=== PATIENT | male | born 1945 | race Caucasian/White ===

== ENCOUNTER 2021-04-13 18:21 | Inpatient (IN) ==
[2021-04-13] MEDS ORDERED: 0.9 % SODIUM CHLORIDE 1,000 ML IV ONE ×2 (18:32→20:02)
[2021-04-13 19:09] LABS: POC Creatinine 1.8 mg/dL (0.6-1.2)
[2021-04-13 19:56] LABS: Alcohol, Blood < 10.0 mg/dL; Alcohol,Blood < 0.010 gm/dL (<0.010)
[2021-04-13] MEDS ORDERED: cefTRIAXone 1 GM VIAL IV ONE (20:02)
[2021-04-13 20:08] LABS: ALT/SGPT 108 U/L (<40); AST/SGOT 275 U/L (<40); Albumin 2.6 gm/dL (3.2-5.2); Albumin/Globulin Ratio 0.6 (1.0-2.3); Alkaline Phosphatase 100 U/L (39-117); Bilirubin,Total 0.8 mg/dL (0.1-1.0); Blood Urea Nitrogen 46 mg/dL (8-23); Carbon Dioxide 22 mmol/L (22-30); Chloride 92 mmol/L (96-108); Glomerular Filtration Rate 32; Glucose 149 mg/dL (70-105)
[2021-04-13] MEDS ORDERED: CARBAMAZEPINE 100 MG/5 ML PO ONE (20:12)
[2021-04-13 20:14] LABS: Basophils # (Auto) 0.04 K/mcL (0.00-0.20); Basophils % (Auto) 0.3 % (0.0-2.0); Eosinophils # (Auto) 0 K/mcL (0.00-0.70); Eosinophils % (Auto) 0 % (0.0-7.0); Hematocrit 38.5 % (41.0-55.0); Hemoglobin 13.8 g/dL (13.5-16.5); Lymphocytes # (Auto) 0.26 K/mcL (1.50-4.80); Lymphocytes % (Auto) 2.2 % (15.0-49.0); Mean Cell Volume 106.1 fL (80.0-100.0); Mean Corpuscular HGB Conc 35.8 g/dL (31.0-36.0); Mean Platelet Volume 11.8 fL (7.4-10.4); Monocytes # (Auto) 1.04 K/mcL (0.10-0.90); Monocytes % (Auto) 8.9 % (1.0-12.0); Neutrophils % (Auto) 88.6 % (38.0-78.0); Platelet Count 60 K/mcL (140-440); RBC 3.63 M/mcL (4.50-5.90); Red Cell Distribution Width 13.2 % (11.5-14.5); WBC 11.7 K/mcL (4.5-11.0)
--- NOTE | 2021-04-13 20:17 | Emergency Department Note ---
Fall HPI General Chief Complaint: Fall Stated Complaint: fall Time Seen by Provider: 04/13/21 18:23 Source: patient, family () and EMS Mode of arrival: EMS Limitations: altered mental status History of Present Illness HPI Narrative: Narrative: 75-year-old male brought in by EMS after his called 911. The reports that the patient was lying on the concrete floor for the last 2 days on his left side. He now has an altered level of consciousness with some hallucinations. states that they slept outside at night on a mattress night but Wednesday the patient complained of being weak in his arms and legs. He managed to crawl to the workshop and lie on the cement floor but then was not able to get up in the next 2 days. EMS personnel report that upon arrival they found the patient to be incontinent of urine with a pulse in the 120s a temperature of 102 and a pulse ox of 89% on room air. He had abrasions on the left side of his face from lying on the floor. He was transported to our facility for further care. states that the patient is vaccinated against Covid. The patient was unable to give any significant meaningful history. states that generally the patient drinks at least 2 bottles of wine per day though he has not been able to drink well on the floor. states that the patient does have a seizure disorder for which she takes Tegretol 100 mg twice a day. states that these are [place] seizures and they happen with some frequency. also states that the patient is on L- thyroxine. Onset (ago): day(s) Related Data Home Medications Medication Instructions Recorded Confirmed carbamazepine [Tegretol] 200 mg PO DAILY 04/13/21 04/13/21 levothyroxine 25 mcg PO DAILY 04/13/21 04/13/21 Allergies Allergy/AdvReac Type Severity Reaction Status Date / Time phenytoin [From Dilantin] AdvReac Mild Skin Verified 04/13/21 22:00 Reaction Review of Systems ROS ROS Narrative: Narrative: Limitations: ROS unobtainable due to patients medical condition (Patient has altered level of consciousness due to his acute medical condition. Unable to provide meaningful history or review of systems.) [facility] Narrative Patient History Narrative: Narrative: Medical/Surgical/Family History All Active Problems (Updated 04/14/21 @ 07:46 by Abel Mathew MD) Acute UTI (urinary tract infection) (Acute) Rhabdomyolysis (Acute) Hyponatremia (Acute) Thrombocytopenia (Acute) Seizure disorder (Acute) Pneumonia (Acute) Severe sepsis with acute organ dysfunction (Acute) Acute renal injury due to sepsis (Acute) Acute hyponatremia (Acute) Acute dehydration (Acute) Medical History Alcohol abuse Hypothyroid Seizure disorder Exam Narrative Narrative: Narrative: General is a well-developed elderly male lying in the bed somewhat confused in mild acute distress. General Limitations: altered mental status General appearance: Present alert Head Head: Present atraumatic and normocephalic Eye Eye: Present normal appearance and EOMI ENT ENT: Present mucous membranes dry Neck Neck: Present trachea midline Chest Chest: Present normal inspection and symmetric chest wall rise Respiratory Respiratory: Present normal lung sounds bilaterally and respiratory distress Cardiovascular Cardiovascular: Present normal rhythm and tachycardia Adbominal Abdominal: Present soft; Absent tenderness Neurological Neurological: Present alert and other (Patient stated he thought he was in a healthcare facility he thought the date was March 1907 and he thought Dick was the president.); Absent oriented X3 Psychiatric Psychiatric: Present depressed Skin Skin: Present warm (WNL) and dry Course Reevaluation(s) Reevaluation #1: Patient states he is feeling about the same. He remains tachycardic in the 120s. I have bolused him 1/3 L of normal saline. Note that he received 1 L from the paramedics and 2 L from us achieving 3 liters total which is greater than 30 mL/kg since he is 95 kg. Blood cultures were obtained and ceftriaxone was ordered 1 g IV 1 hour 45 minutes after arrival. I discussed with the patient and that he would be admitted to the hospital for sepsis. I also advised that they had a left lower lobe pneumonia. Urine testing is still pending. respiratory rate is noted to be elevated at 29. Time: 20:05 Reevaluation #2: Reperfusion/sepsis reevaluation post 2 hours. Heart rate remains in the 120s in spite of 2 L of normal saline he. He is receiving the third liter now. His pulse oximetry is 93%. His temperature most recently was 99.4. His skin was warm. He had good circulation. Distal pulses were strong. A repeat lactate has been ordered. Time: 20:35 Consultations Consultation #1: 2014 I have consulted the hospitalist who agrees with admitting the patient for severe sepsis. The patient has been bolused 30 mL/kg, has an elevated lacate of 2.1, has had blood cultures drawn, and has received 2 antibiotics ceftriaxone 1 g IV and azithromycin 500 mg IV all within about 2 hours of arrival. A repeat Lactate will be now ordered. Time: 20:15 Vital Signs Vital signs: Vital Signs Temperature 98.0 F 04/13/21 18:21 Pulse Rate 121 H 04/13/21 18:21 Respiratory Rate 20 04/13/21 18:21 Blood Pressure 147/82 04/13/21 18:21 Pulse Oximetry (%) 88 L 04/13/21 18:21 Temperature 98.5 F 04/14/21 06:00 Pulse Rate 102 H 04/14/21 06:00 Respiratory Rate 20 04/14/21 06:00 Blood Pressure 117/72 04/14/21 06:00 Pulse Oximetry (%) 97 04/14/21 06:00 MDM MDM Narrative Medical decision making narrative: Narrative: Elderly male presents to the emergency department via ambulance after having been on his side for 2 days. There was a comment about altered level of consciousness and possible hallucinations by the EMS. They stated that the temperature was 102 on scene and his pulse was 120s with a pulse ox of 89% on room air. They noted that the patient had been incontinent of urine. Differential diagnosis includes seizure, closed head injury, urinary tract infection, pyelonephritis, sepsis, pneumonia, alcohol withdrawal, other infection. CT scan of the head has been ordered and is pending at this time to rule out intracranial process. Your UA has been ordered and is pending at this time. Chest x-ray to my reading showed an acute left lower lobe infiltrate. Lactate was elevated at 2.1. Patient is tachycardic in the 120s. Patient has an elevated white count of 11.7. This is all compatible with sepsis. Creatinine was elevated 2.0 with a BUN of 46. This is compatible both with dehydration possibly from being immobile for so long as well as acute kidney injury. Glucose is mildly elevated at 149. Patient is hyponatremic at 129 which I expect will improve with the 3 L of normal saline. On the sepsis criteria the patient has an elevated temperature by paramedics of 102, heart rate greater than 90 at 120, respiratory rate greater than 20 as it is in the high 20s, and an altered mental status for which I ordered a CT that came back as negative. I believe he meets the criteria for severe sepsis in view of the acute kidney injury being end organ damage. For perfusion reassessment please see my note under course reevaluation. At this time greater than 2 hours after arrival and now ordering a repeat lactic level. I have ordered ceftriaxone IV as well as azithromycin IV. I have discussed the case with the hospitalist Dr. Sagastume who is accepted the patient for inpatient care. CT scan of the head because of the altered mental status was read out as reported as showing age-related involutional changes, chronic small vessel ischemic changes periventricular white matter with no acute intracranial process. CK was 5881 compatible with rhabdomyolysis which fits with the clinical story of the patient being on the ground for the 2 days. Alcohol level of 0 compatible with patient withdrawing from his typical alcohol consumption. Urinalysis was positive for urinary tract infection. Lab Data Lab results reviewed: Yes I reviewed the patient's lab results. Result diagrams: 04/14/21 05:15 04/13/21 18:58 Labs: Lab Results 04/13/21 04/13/21 04/13/21 Range/Units 18:35 18:35 18:58 WBC 11.7 H (4.5-11.0) K/mcL RBC 3.63 L (4.50-5.90) M/mcL Hgb 13.8 (13.5-16.5) g/dL Hct 38.5 L (41.0-55.0) % MCV 106.1 H (80.0-100.0) fL MCH 38.0 H (26.0-34.0) pg MCHC 35.8 (31.0-36.0) g/dL RDW 13.2 (11.5-14.5) % Plt Count 60 L (140-440) K/mcL MPV 11.8 H (7.4-10.4) fL Neut % (Auto) 88.6 H (38.0-78.0) % Lymph % (Auto) 2.2 L (15.0-49.0) % [place] % (Auto) 8.9 (1.0-12.0) % Eos % (Auto) 0 (0.0-7.0) % Baso % (Auto) 0.3 (0.0-2.0) % Lymph # (Auto) 0.26 L (1.50-4.80) K/mcL [place] # (Auto) 1.04 H (0.10-0.90) K/mcL Eos # (Auto) 0 (0.00-0.70) K/mcL Baso # (Auto) 0.04 (0.00-0.20) K/mcL Absolute Neutrophils 10.36 H (1.80-8.00) K/mcL VBG Lactic Acid (0.5-2.0) mmol/L Sodium (133-145) mmol/L Potassium (3.3-5.1) mmol/L Chloride (96-108) mmol/L Carbon Dioxide (22-30) mmol/L Anion Gap (8.0-16.0) BUN (8-23) mg/dL Creatinine (0.7-1.2) mg/dL POC Creatinine (0.6-1.2) mg/dL GFR Calculation Glucose (70-105) mg/dL Hemoglobin A1c 5.5 (4.0-6.0) % Hgb Estim Average Glucose 111 mg/dL Calcium (8.6-10.4) mg/dL Total Bilirubin (0.1-1.0) mg/dL AST (<40) U/L ALT (<40) U/L Alkaline Phosphatase (39-117) U/L Total Creatine Kinase 5881 H (24-195) U/L Troponin T (<0.03) ng/mL Total Protein (5.9-8.4) gm/dL Albumin (3.2-5.2) gm/dL Globulin (2.2-3.7) gm/dL Albumin/Globulin Ratio (1.0-2.3) TSH (0.27-5.01) uIU/mL Urine Color Urine Appearance (Clear) Urine pH (5.0-9.0) Ur Specific [place] (1.000-1.035) Urine Protein (Negative) mg/dL Urine Glucose (UA) (Negative) mg/dL Urine Ketones (Negative) mg/dL Urine Occult Blood (Negative) mg/dL Urine Nitrate (Negative) Urine Bilirubin (Negative) mg/dL Urine Urobilinogen mg/dL Ur Leukocyte Esterase (Negative) /ug Urine RBC (0-3) /hpf Urine WBC (0-4) /hpf Ur Squamous Epith Cells (0-4) /hpf Urine Bacteria (0) /hpf Hyaline Casts (0-2) /lph Ur Culture Indicated? Carbamazepine (4.0-12.0) ug/mL Ethyl Alcohol (<0.010) gm/dL 04/13/21 04/13/21 04/13/21 Range/Units 18:58 18:58 18:58 WBC (4.5-11.0) K/mcL RBC (4.50-5.90) M/mcL Hgb (13.5-16.5) g/dL Hct (41.0-55.0) % MCV (80.0-100.0) fL MCH (26.0-34.0) pg MCHC (31.0-36.0) g/dL RDW (11.5-14.5) % Plt Count (140-440) K/mcL MPV (7.4-10.4) fL Neut % (Auto) (38.0-78.0) % Lymph % (Auto) (15.0-49.0) % [place] % (Auto) (1.0-12.0) % Eos % (Auto) (0.0-7.0) % Baso % (Auto) (0.0-2.0) % Lymph # (Auto) (1.50-4.80) K/mcL [place] # (Auto) (0.10-0.90) K/mcL Eos # (Auto) (0.00-0.70) K/mcL Baso # (Auto) (0.00-0.20) K/mcL Absolute Neutrophils (1.80-8.00) K/mcL VBG Lactic Acid 2.1 H (0.5-2.0) mmol/L Sodium 129 L (133-145) mmol/L Potassium 3.8 (3.3-5.1) mmol/L Chloride 92 L (96-108) mmol/L Carbon Dioxide 22 (22-30) mmol/L Anion Gap 15.0 (8.0-16.0) BUN 46 H (8-23) mg/dL Creatinine 2.0 H (0.7-1.2) mg/dL POC Creatinine 1.8 H (0.6-1.2) mg/dL GFR Calculation 32 Glucose 149 H (70-105) mg/dL Hemoglobin A1c (4.0-6.0) % Hgb Estim Average Glucose mg/dL Calcium 8.0 L (8.6-10.4) mg/dL Total Bilirubin 0.8 (0.1-1.0) mg/dL AST 275 H (<40) U/L ALT 108 H (<40) U/L Alkaline Phosphatase 100 (39-117) U/L Total Creatine Kinase (24-195) U/L Troponin T 0.04 H* (<0.03) ng/mL Total Protein 6.6 (5.9-8.4) gm/dL Albumin 2.6 L (3.2-5.2) gm/dL Globulin 4.0 H (2.2-3.7) gm/dL Albumin/Globulin Ratio 0.6 L (1.0-2.3) TSH 2.00 (0.27-5.01) uIU/mL Urine Color Urine Appearance (Clear) Urine pH (5.0-9.0) Ur Specific [place] (1.000-1.035) Urine Protein (Negative) mg/dL Urine Glucose (UA) (Negative) mg/dL Urine Ketones (Negative) mg/dL Urine Occult Blood (Negative) mg/dL Urine Nitrate (Negative) Urine Bilirubin (Negative) mg/dL Urine Urobilinogen mg/dL Ur Leukocyte Esterase (Negative) /ug Urine RBC (0-3) /hpf Urine WBC (0-4) /hpf Ur Squamous Epith Cells (0-4) /hpf Urine Bacteria (0) /hpf Hyaline Casts (0-2) /lph Ur Culture Indicated? Carbamazepine (4.0-12.0) ug/mL Ethyl Alcohol (<0.010) gm/dL 04/13/21 04/13/21 04/13/21 Range/Units 18:58 18:58 20:26 WBC (4.5-11.0) K/mcL RBC (4.50-5.90) M/mcL Hgb (13.5-16.5) g/dL Hct (41.0-55.0) % MCV (80.0-100.0) fL MCH (26.0-34.0) pg MCHC (31.0-36.0) g/dL RDW (11.5-14.5) % Plt Count (140-440) K/mcL MPV (7.4-10.4) fL Neut % (Auto) (38.0-78.0) % Lymph % (Auto) (15.0-49.0) % [place] % (Auto) (1.0-12.0) % Eos % (Auto) (0.0-7.0) % Baso % (Auto) (0.0-2.0) % Lymph # (Auto) (1.50-4.80) K/mcL [place] # (Auto) (0.10-0.90) K/mcL Eos # (Auto) (0.00-0.70) K/mcL Baso # (Auto) (0.00-0.20) K/mcL Absolute Neutrophils (1.80-8.00) K/mcL VBG Lactic Acid (0.5-2.0) mmol/L Sodium (133-145) mmol/L Potassium (3.3-5.1) mmol/L Chloride (96-108) mmol/L Carbon Dioxide (22-30) mmol/L Anion Gap (8.0-16.0) BUN (8-23) mg/dL Creatinine (0.7-1.2) mg/dL POC Creatinine (0.6-1.2) mg/dL GFR Calculation Glucose (70-105) mg/dL Hemoglobin A1c (4.0-6.0) % Hgb Estim Average Glucose mg/dL Calcium (8.6-10.4) mg/dL Total Bilirubin (0.1-1.0) mg/dL AST (<40) U/L ALT (<40) U/L Alkaline Phosphatase (39-117) U/L Total Creatine Kinase (24-195) U/L Troponin T (<0.03) ng/mL Total Protein (5.9-8.4) gm/dL Albumin (3.2-5.2) gm/dL Globulin (2.2-3.7) gm/dL Albumin/Globulin Ratio (1.0-2.3) TSH (0.27-5.01) uIU/mL Urine Color Yellow Urine Appearance Turbid A (Clear) Urine pH 7.0 (5.0-9.0) Ur Specific [place] 1.010 (1.000-1.035) Urine Protein 100 A (Negative) mg/dL Urine Glucose (UA) Negative (Negative) mg/dL Urine Ketones Negative (Negative) mg/dL Urine Occult Blood >=1.0 A (Negative) mg/dL Urine Nitrate Negative (Negative) Urine Bilirubin Negative (Negative) mg/dL Urine Urobilinogen Negative mg/dL Ur Leukocyte Esterase 250 A (Negative) /ug Urine RBC 8 H (0-3) /hpf Urine WBC > 182 H (0-4) /hpf Ur Squamous Epith Cells 0 (0-4) /hpf Urine Bacteria Few A (0) /hpf Hyaline Casts 83 H (0-2) /lph Ur Culture Indicated? yes Carbamazepine 6.8 (4.0-12.0) ug/mL Ethyl Alcohol < 0.010 (<0.010) gm/dL ED POC Tests ED POC Tests: ASHLEY - SARS Antigen Negative CC TIME Critical Care Time Critical Care Time: Yes Total Critical Care Time: 35 Attestation: I spent greater than 35 minutes of critical care time on this elderly male with altered mental status. That was exclusive of all procedures. This patient was found to be in severe sepsis with rhabdomyolysis in addition to the altered mental status. Discharge Plan Patient/Caregiver Discharge Instructions Pt seen by DIRECTOR OF SOCIAL MEDIA MARKETING/PA only: No Clinical Impression: Severe sepsis with acute organ dysfunction, Pneumonia, Acute renal injury due to sepsis, Acute hyponatremia, Acute dehydration, Acute UTI (urinary tract infection), Rhabdomyolysis Patient Disposition: Xfer As Inpt ([facility]) Condition: Serious Discharge Date/Time: 04/13/21 21:21
[2021-04-13] MEDS ORDERED: carBAMazepine 100 MG TAB.CHEW PO ONE ×2 (20:20→21:12)
[2021-04-13] MEDS ORDERED: AZITHROMYCIN 500 MG in DEXTROSE 5% IN WATER 250 ML IV ONE (20:26)
[2021-04-13 21:07] LABS: Appearance,Urine TURBID (Clear); Bacteria,Urine FEW /hpf (0); Bilirubin,Urine Negative (Negative); Color,Urine YELLOW; Culture Indicated,Urine yes; Glucose,Urine (UA) Negative (Negative); Ketones,Urine Negative (Negative); Leukocyte Esterase,Urine 250 /ug (Negative); Nitrate,Urine Negative (Negative); Protein,Urine 100 mg/dL (Negative); Urine Blood >=1.0 mg/dL (Negative); Urine Hyaline Cast 83 /lph (0-2); Urine RBC 8 /hpf (0-3); Urine Squamous Epithelial Cell 0 /hpf (0-4); Urine WBC > 182 /hpf (0-4); Urobilinogen,Urine Negative
[2021-04-13] MEDS ORDERED: SENNOSIDES 1 TABLET PO SCH (21:12)
[2021-04-13] MEDS ORDERED: 0.9 % SODIUM CHLORIDE 1,000 ML IV SCH ×2 (21:12→22:02)
[2021-04-13] MEDS ORDERED: ACETAMINOPHEN 325 MG TABLET PO PRN (21:12)
[2021-04-13] MEDS ORDERED: IPRATROPIUM/ALBUTEROL 3 ML AMPUL.NEB NEB PRN ×2 (21:12→22:18)
[2021-04-13] MEDS ORDERED: ONDANSETRON 4 MG/2 ML VIAL IV PRN ×2 (21:12→22:18)
[2021-04-13] MEDS ORDERED: ONDANSETRON 4 MG ODT TABLET SL PRN ×2 (21:12→22:18)
[2021-04-13] MEDS ORDERED: LORazepam 1 MG TABLET PO PRN ×2 (21:57→22:18)
[2021-04-13] MEDS ORDERED: 0.9 % SODIUM CHLORIDE 10 ML SYRINGE IV SCH (22:00)
--- NOTE | 2021-04-13 22:21 | Internal Med History&Physical ---
HPI History of Present Illness Patient information: Note initiated : 04/13/21 at 8:39 pm Service Date, if different from initiated Date: [] Patient: Fahad Jimenez 75 y/o M admitted on for fall. Chief Complaint: [] History of present illness: Mr. Jimenez is a 75 year old M with a history of partial complex seizures, hypothyroidism, alcohol abuse who presents the ED via EMS after being down on the floor of his workshop for 2 days. History is obtain ed speaking with Dr. Ramirez in the ED, reviewing records and limited history from the patient who is quite confused. Per report from his , he drinks 2 bottles of wine a day. At one point of my interview, he does tell me that he has not drank alcohol in 3 days. Apparently the patient has sleep in the back patio in the warm weather. He has been doing that this week. 2 days ago patient became weak in his arms and legs. Because of the sun and heat, he crawled into his covered workshop and lay on the concrete floor since then. Does not appear he has had much to eat or drink in that timeframe. He is quite vague on how long he had been there. His was concerned and called EMS today. Patient is unable to elaborate further on what is passed in the last 2 days. Upon arrival by EMS temperatures febrile to 102, pulse was in the 120s. He received IV fluids. His oxygen saturations were 89% in the field and he was tachypneic. Upon arrival in the ED, patient remained tachycardic at 122 blood pressure is 163/95 respiratory rate was 29. He received 2 further liters of IV fluids in the ED (3 total including EMS). Evaluation revealed white count of 11,000, thrombocytopenia at 64,000, hyponatremia 129. BUN is elevated at 46 and creatinine 2.0, with no known history of renal disease per his . Lactate is elevated 2.1. Troponin mildly abnormal at 0.04 and CPK is in the [address] scan of the head showed old chronic changes. Chest x-ray concerning for left lower lobe infiltrate. Patient is being admitted for treatment of severe sepsis associated with pneumonia. Subsequent to arriving on the floor, urine analysis returns showing significant pyuria and bacteriuria, thus the patient is being treated for sepsis from both pulmonary and urinary source. Review of systems is difficult as the patient is confused and sometimes does not respond to direct questions. Patient denies any headache or vision changes. Does not really reply when asked about chest pain or shortness of breath. Does say he has had some abdominal pain. Cannot elaborate further. Denies any difficulty voiding. When asked if he is seeing anything that is not there, replies "only when I do not drink". Subsequently volunteers he has not had a drink in 3 days. Family history: Not obtainable due to the patient's mental status Review of Systems Review of systems: Further review of systems is not obtainable due to mental status. PFSH PFSH All Active Problems (Updated 04/13/21 @ 22:21 by Jessica Leon MD) Hyponatremia (Acute) Thrombocytopenia (Acute) Seizure disorder (Acute) Pneumonia (Acute) Severe sepsis with acute organ dysfunction (Acute) Acute renal injury due to sepsis (Acute) Acute hyponatremia (Acute) Acute dehydration (Acute) Medical History (Updated 04/13/21 @ 22:21 by Jessica Leon MD) Alcohol abuse Hypothyroid Seizure disorder Social History (Updated 04/13/21 @ 20:41 by Jessica Leon MD) alcohol intake frequency: 2+ drinks per day MEDS/ALLERGIES Home Medications and Allergies Home Medications Medication Instructions Recorded Confirmed Type carbamazepine [Tegretol] 200 mg PO DAILY 04/13/21 04/13/21 History levothyroxine 25 mcg PO DAILY 04/13/21 04/13/21 History Allergies Allergy/AdvReac Type Severity Reaction Status Date / Time phenytoin [From Dilantin] AdvReac Mild Skin Verified 04/13/21 22:00 Reaction EXAM Constitutional Vitals: Temp Pulse Resp BP Pulse Ox 99.4 F H 122 H 29 H 163/95 92 04/13/21 20:28 04/13/21 20:02 04/13/21 20:02 04/13/21 20:02 04/13/21 20:02 GENERAL: Alert, disoriented, appears uncomfortable. HEENT: Pupils are equal, conjunctiva clear, no scleral icterus, but blood vessels are prominent. Hearing grossly intact. Oropharynx with dry mucous membranes, no pharyngeal exudate, tongue midline. NECK: Supple without meningismus, no thyromegaly RESPIRATORY: Crackles at the left base, otherwise clear, no rhonchi. Patient is tachypneic during exam, but no accessory muscle use. CARDIOVASCULAR: Tachycardic, regular, no murmur noted. No peripheral edema. Carotid pulses are 2+. GI: Abdomen soft, obese with moderate suprapubic tenderness with palpation. No voluntary guarding, no rebound tenderness. MUSCULOSKELETAL: No joint erythema or swelling. Patient sits with hips and knees flexed and externally rotated and resists extending his legs flat on the bed. SKIN: Warm, mildly diaphoretic, few abrasions on the lower extremities and left side. NEUROLOGIC: Cranial nerves II through XII grossly intact as can best be tested. Muscle mass normal. Moves all extremities. Sensation appears intact to light touch bilaterally. PSYCHIATRIC: Patient is awake, oriented to self, states he is in a rehab center, the date is January 12. Poor insight to current condition. Denies any current hallucinations. Does not appear to be attending to internal stimuli. DATA Data Completed and Pending Labs: Labs from last 24 hours 04/13/21 04/13/21 04/13/21 20:26 18:58 18:58 WBC RBC Hgb Hct MCV MCH MCHC RDW Plt Count MPV Neut % (Auto) Lymph % (Auto) [place] % (Auto) Eos % (Auto) Baso % (Auto) Lymph # (Auto) [place] # (Auto) Eos # (Auto) Baso # (Auto) Absolute Neutrophils VBG Lactic Acid Sodium Potassium Chloride Carbon Dioxide Anion Gap BUN Creatinine POC Creatinine GFR Calculation Glucose Calcium Total Bilirubin AST ALT Alkaline Phosphatase Troponin T Total Protein Albumin Globulin Albumin/Globulin Ratio TSH Urine Color Pending Urine Appearance Pending Urine pH Pending Ur Specific [place] Pending Urine Protein Pending Urine Glucose (UA) Pending Urine Ketones Pending Urine Occult Blood Pending Urine Nitrate Pending Urine Bilirubin Pending Urine Urobilinogen Pending Ur Leukocyte Esterase Pending Carbamazepine 6.8 Ethyl Alcohol < 0.010 04/13/21 04/13/21 04/13/21 18:58 18:58 18:58 WBC RBC Hgb Hct MCV MCH MCHC RDW Plt Count MPV Neut % (Auto) Lymph % (Auto) [place] % (Auto) Eos % (Auto) Baso % (Auto) Lymph # (Auto) [place] # (Auto) Eos # (Auto) Baso # (Auto) Absolute Neutrophils VBG Lactic Acid 2.1 H Sodium 129 L Potassium 3.8 Chloride 92 L Carbon Dioxide 22 Anion Gap 15.0 BUN 46 H Creatinine 2.0 H POC Creatinine 1.8 H GFR Calculation 32 Glucose 149 H Calcium 8.0 L Total Bilirubin 0.8 AST 275 H ALT 108 H Alkaline Phosphatase 100 Troponin T 0.04 H* Total Protein 6.6 Albumin 2.6 L Globulin 4.0 H Albumin/Globulin Ratio 0.6 L TSH 2.00 Urine Color Urine Appearance Urine pH Ur Specific [place] Urine Protein Urine Glucose (UA) Urine Ketones Urine Occult Blood Urine Nitrate Urine Bilirubin Urine Urobilinogen Ur Leukocyte Esterase Carbamazepine Ethyl Alcohol 04/13/21 18:58 WBC 11.7 H RBC 3.63 L Hgb 13.8 Hct 38.5 L MCV 106.1 H MCH 38.0 H MCHC 35.8 RDW 13.2 Plt Count 60 L MPV 11.8 H Neut % (Auto) 88.6 H Lymph % (Auto) 2.2 L [place] % (Auto) 8.9 Eos % (Auto) 0 Baso % (Auto) 0.3 Lymph # (Auto) 0.26 L [place] # (Auto) 1.04 H Eos # (Auto) 0 Baso # (Auto) 0.04 Absolute Neutrophils 10.36 H VBG Lactic Acid Sodium Potassium Chloride Carbon Dioxide Anion Gap BUN Creatinine POC Creatinine GFR Calculation Glucose Calcium Total Bilirubin AST ALT Alkaline Phosphatase Troponin T Total Protein Albumin Globulin Albumin/Globulin Ratio TSH Urine Color Urine Appearance Urine pH Ur Specific [place] Urine Protein Urine Glucose (UA) Urine Ketones Urine Occult Blood Urine Nitrate Urine Bilirubin Urine Urobilinogen Ur Leukocyte Esterase Carbamazepine Ethyl Alcohol Imaging and Cardiology Chest x-ray: Status: image reviewed by me Additional comments: Left lower lobe infiltrate CT scan - head: Additional comments: Chronic changes without acute finding A/P Narrative A/P Narrative: Severe sepsis -Mild leukocytosis, lactate 2.1 -Source of infection both lung and urine -No septic shock Left lower lobe pneumonia -Infiltrate on chest x-ray -May represent community-acquired pneumonia -Though on left side, could also be aspiration (apparently patient was laying on left side on the floor) Acute cystitis -Patient with significant pyuria and bacteriuria on urine analysis -Suspect also source of sepsis Acute kidney injury -Creatinine 2.0, unaware of any history of renal disease -Suspect this may be multifactorial from sepsis and dehydration/intravascular volume depletion -Post renal causes may also be contributing Bladder outlet obstruction and urinary retention -Significantly distended bladder, with bladder scan showing >999 mL urine -Catheter placed, with significant return of urine Rhabdomyolysis -Moderate, CK 5881 -Likely compression injury of muscles from lying on concrete floor for 2 days -Less likely because of renal failure at this level (usually when CK approaches 10,000) Dehydration -Elevated BUN, hyaline casts on bladder scan consistent with dehydration -Have been laying on the floor of his workshop for 2 days, unclear if he had had anything to drink during that time. Alcohol abuse and withdrawal -Per history, patient drinks 2 bottles of wine a day -Was able to tell me that he had been to rehabilitation before -Provided history as last drink was 3 days ago -Suspect part of his tachycardia and confusion is related to withdrawal in shailesh tion to sepsis Thrombocytopenia -May be secondary to sepsis, though may also be effects of chronic alcohol consumption Hyponatremia -Suspect secondary to volume depletion and dehydration Hypothyroidism -On levothyroxine Partial complex seizures -On carbamazepine -Patient could not describe what types of seizures he experiences Plan: Inpatient admission Continue with ceftriaxone and azithromycin to cover pneumonia Continue ceftriaxone to also cover urine Follow-up urine and blood culture results, narrow antibiotics as able CIWA protocol [place] catheter for urinary retention Close attention to intake and output Follow platelets Follow sodium with fluid resuscitation IV fluids for rhabdomyolysis, follow CK Seizure precautions Continue levothyroxine and carbamazepine PT and OT evaluations SCDs for DVT prophylaxis, holding enoxaparin in the face of thrombocytopenia
[2021-04-13] MEDS: 0.9 % SODIUM CHLORIDE 1,000 ML IV SCH (22:53)
[2021-04-13] MEDS ORDERED: ACETAMINOPHEN 325 MG TABLET PO ONE (23:03)
[2021-04-13] MEDS ORDERED: LORazepam 2 MG/ML VIAL ONE (23:04)
[2021-04-13] MEDS: ACETAMINOPHEN 325 MG TABLET PO PRN (23:12)
[2021-04-13 23:19] LABS: Hemoglobin A1C 5.5 % Hgb (4.0-6.0)
[2021-04-14] MEDS: ACETAMINOPHEN 650 MG/65 ML BAG IV PRN ×3 (00:02→17:36)
[2021-04-14] MEDS ORDERED: ACETAMINOPHEN 1,000 MG/100 ML BAG IV ONE (00:03)
[2021-04-14] MEDS: 0.9 % SODIUM CHLORIDE 1,000 ML IV SCH ×4 (05:30→22:58)
[2021-04-14] MEDS: 0.9 % SODIUM CHLORIDE 10 ML SYRINGE IV SCH ×3 (05:31→21:55)
--- NOTE | 2021-04-14 05:47 | XRay Report ---
INDICATION: Chest pain TECHNIQUE: AP portable upright chest x-ray COMPARISON: None FINDINGS: Lungs:Negative right lung. Focal infiltrate at the left lung base may be pneumonia. Clinical correlation follow-up radiograph is recommended. Left upper lobe is negative. Heart, vascular:No significant cardiomegaly. Pulmonary vascularity is normal. No pulmonary edema or pulmonary congestion Mediastinum, mynor:No mediastinal widening. No hilar mass Pleura:No pleural fluid. No pleural-based mass or calcification Skeletal:Negative. IMPRESSION: 1. Left basilar pulmonary parenchymal density consistent with pneumonia 2. Otherwise negative AP chest x-ray Interpreted and Authenticated by: Andres Harrington 04/14/21
--- NOTE | 2021-04-14 05:52 | Cat Scan Report ---
INDICATION: altered mental status COMPARISON: None. TECHNIQUE: Axial noncontrast-enhanced images through the brain. Sagittally and coronally reformatted images. FINDINGS: Examination was initially interpreted by [facility] Cerebral hemispheres:There is cerebral atrophy with prominent superficial subarachnoid spaces and ventricular enlargement. There is white matter abnormality in a predominantly periventricular distribution. Appearance is most consistent with small vessel ischemic change in this 75-year-old patient. No intra-axial hemorrhage. No focal attenuation abnormality or localized mass effect. Brainstem and cerebellum:No intra-axial abnormality Extra-axial:No acute hemorrhage. No subdural or epidural hematoma. No subarachnoid hemorrhage. Basilar cisterns are normal Calvarial:No calvarial fracture. No lytic lesion Temporal bones are negative. No destructive lesions Soft tissue, orbits, sinuses:Orbits and visualized facial soft tissues and paranasal sinuses are negative IMPRESSION: 1. Cerebral atrophy. Periventricular white matter abnormality consistent with small vessel ischemic change 2. No acute or focal abnormality The exam was performed using radiation dose optimization techniques including, but not limited to, automated exposure control, adjustment of the mA and/or kV according to patient size and use of iterative reconstruction technique. Interpreted and Authenticated by: Andres Harrington 04/14/21
[2021-04-14 07:27] LABS: Basophils # (Auto) 0.03 K/mcL (0.00-0.20); Basophils % (Auto) 0.3 % (0.0-2.0); Eosinophils # (Auto) 0.01 K/mcL (0.00-0.70); Eosinophils % (Auto) 0.1 % (0.0-7.0); Hematocrit 38.6 % (41.0-55.0); Hemoglobin 13.4 g/dL (13.5-16.5); Lymphocytes # (Auto) 0.48 K/mcL (1.50-4.80); Lymphocytes % (Auto) 4.1 % (15.0-49.0); Mean Cell Volume 109.7 fL (80.0-100.0); Mean Corpuscular HGB Conc 34.7 g/dL (31.0-36.0); Mean Platelet Volume 11.8 fL (7.4-10.4); Monocytes # (Auto) 1.69 K/mcL (0.10-0.90); Monocytes % (Auto) 14.5 % (1.0-12.0); Platelet Count 62 K/mcL (140-440); RBC 3.52 M/mcL (4.50-5.90); Red Cell Distribution Width 13.4 % (11.5-14.5); WBC 11.7 K/mcL (4.5-11.0)
[2021-04-14] MEDS ORDERED: LEVOTHYROXINE 25 MCG TABLET PO SCH (07:30)
[2021-04-14] MEDS ORDERED: PANTOPRAZOLE 40 MG TABLET PO SCH (07:30)
[2021-04-14 07:58] LABS: ALT/SGPT 102 U/L (<40); AST/SGOT 275 U/L (<40); Albumin 2.4 gm/dL (3.2-5.2); Albumin/Globulin Ratio 0.6 (1.0-2.3); Alkaline Phosphatase 105 U/L (39-117); Bilirubin,Direct 0.4 mg/dL (<0.3); Bilirubin,Total 0.7 mg/dL (0.1-1.0); Blood Urea Nitrogen 49 mg/dL (8-23); Calcium 7.9 mg/dL (8.6-10.4); Carbon Dioxide 23 mmol/L (22-30); Chloride 100 mmol/L (96-108); Globulin 3.7 gm/dL (2.2-3.7); Glomerular Filtration Rate 36; Glucose 135 mg/dL (70-105); Lactate Dehydrogenase 530 U/L (135-225); Phosphorous 4.7 mg/dL (2.5-4.5); Triglycerides 121 mg/dL (<150); Uric Acid 7.5 mg/dL (2.5-8.0)
[2021-04-14] MEDS: cefTRIAXone 1 GM VIAL IV SCH (08:39)
[2021-04-14] MEDS: FOLIC ACID 1 MG TABLET PO SCH (08:53)
[2021-04-14] MEDS: MULTIVIT,THER IRON,CA,FA & MIN 1 TABLET PO SCH (08:53)
[2021-04-14] MEDS: THIAMINE 100 MG TABLET PO SCH (08:53)
[2021-04-14] MEDS: PANTOPRAZOLE 40 MG TABLET PO SCH (08:53)
[2021-04-14] MEDS: LEVOTHYROXINE 25 MCG TABLET PO SCH (08:53)
[2021-04-14] MEDS: carBAMazepine 200 MG TABLET PO SCH ×2 (08:57→20:18)
[2021-04-14] MEDS ORDERED: THIAMINE 100 MG TABLET PO SCH (09:00)
[2021-04-14] MEDS ORDERED: MULTIVIT,THER IRON,CA,FA & MIN 1 TABLET PO SCH (09:00)
[2021-04-14] MEDS ORDERED: carBAMazepine 200 MG TABLET PO SCH ×2 (09:00)
[2021-04-14] MEDS ORDERED: FOLIC ACID 1 MG TABLET PO SCH (09:00)
[2021-04-14] MEDS ORDERED: cefTRIAXone 1 GM VIAL IV SCH (09:00)
[2021-04-14] MEDS ORDERED: AZITHROMYCIN 500 MG in DEXTROSE 5% IN WATER 250 ML IV SCH (10:00)
[2021-04-14] MEDS: AZITHROMYCIN 500 MG in DEXTROSE 5% IN WATER 250 ML IV SCH (10:55)
[2021-04-14] MEDS: LORazepam 2 MG/ML VIAL IV PRN (17:43)
[2021-04-14] MEDS ORDERED: VANCOMYCIN PER PHARMACY IV SCH (19:42)
[2021-04-14] MEDS ORDERED: cefTRIAXone 1 GM in DEXTROSE 5% IN WATER 50 ML IV SCH (20:00)
--- NOTE | 2021-04-14 20:50 | Internal Med Progress Note ---
SUBJECTIVE Subjective Patient information: Note initiated : 04/14/21 at 8:50 pm Service Date, if different from initiated Date: [] Patient: Fahad Jimenez 75 y/o M admitted on 04/13/21 for fall. Chief Complaint: f/u sepsis Interval history: Mr. Jimenez is a 75 year old M with a history of partial complex seizures, hypothyroidism, alcohol abuse who presents the ED via EMS after being down on the floor of his workshop for 2 days. History is obtained speaking with Dr. Ramirez in the ED, reviewing records and limited history from the patient who is quite confused. Per report from his , he drinks 2 bottles of wine a day. At one point of my interview, he does tell me that he has not drank alcohol in 3 days. Apparently the patient has sleep in the back patio in the warm weather. He has been doing that this week. 2 days ago patient became weak in his arms and legs. Because of the sun and heat, he crawled into his covered workshop and lay on the concrete floor since then. Does not appear he has had much to eat or drink in that timeframe. He is quite vague on how long he had been there. His was concerned and called EMS today. Patient is unable to elaborate further on what is passed in the last 2 days. Upon arrival by EMS temperatures febrile to 102, pulse was in the 120s. He received IV fluids. His oxygen saturations were 89% in the field and he was tachypneic. Upon arrival in the ED, patient remained tachycardic at 122 blood pressure is 163/95 respiratory rate was 29. He received 2 further liters of IV fluids in the ED (3 total including EMS). Evaluation revealed white count of 11,000, thrombocytopenia at 64,000, hyponatremia 129. BUN is elevated at 46 and creatinine 2.0, with no known history of renal disease per his . Lactate is elevated 2.1. Troponin mildly abnormal at 0.04 and CPK is in the [address] scan of the head showed old chronic changes. Chest x-ray concerning for left lower lobe infiltrate. Patient is being admitted for treatment of severe sepsis associated with pneumonia. Subsequent to arriving on the floor, urine analysis returns showing significant pyuria and bacteriuria, thus the patient is being treated for sepsis from both pulmonary and urinary source. fter admission yesterday, the patient became more more confused, eventually moved to PCU status. Treated with [facility] protocol for alcohol withdrawal. This morning he is more alert and clearer. His is bedside. She explains that he had refused when she had attempted to call EMS earlier. He had been on his left side for about 2 days. She did bring him some food and fluids to drink. He apparently drinks regularly and consistently. Lima catheter placed yesterday evening for urinary retention. Labs show a white count of 11,000, unchanged. This evening at about 24 hours of incubation, 4/4 bottles of admit blood cultures are positive for gram-positive cocci in clusters. Pertinent ROS: No dyspnea. No hallucinations. No nausea. Lower abdominal pain is improved. Constitutional Vitals: Vital Signs Temp Pulse Resp BP Pulse Ox 102.2 F H 120 H 25 H 122/62 94 04/14/21 19:06 04/14/21 19:06 04/14/21 19:06 04/14/21 19:01 04/14/21 19:06 Period Temp Pulse Resp BP Sys/[place] Pulse Ox Last 24 Hr 98.5 F-102.6 F 58-126 12-35 109-158/62-92 90-98 Intake and Output 04/14/21 04/14/21 04/14/21 05:59 13:59 21:59 Intake Total 1058 2633 545 Output Total 1630 1750 Balance -572 2633 -1205 Weight 213 lb 6.4 oz 217 lb 1.6 oz Patient Weight 04/15/21 05:59 Weight 217 lb 1.6 oz GENERAL: In bed, a little drowsy but able to talk and provide answers RESPIRATORY: Crackles at the left lower lung field CARDIOVASCULAR: Regular, mildly tachycardic ABDOMEN: Soft, minimal suprapubic tenderness, no guarding or rebound EXTREMITIES: Warm, dry SKIN: Multiple abrasions, particularly in the left upper and lower extremities and left side of face NEURO: Alert, oriented to self, being in the hospital. Remembers me from yesterday evening. Moves all extremities but with generalized weakness Intake & Output: Intake & Output 04/14/21 04/14/21 04/14/21 05:59 13:59 21:59 Intake Total 1058 2633 545 Output Total 1630 1750 Balance -572 2633 -1205 Weight 213 lb 6.4 oz 217 lb 1.6 oz Intake: Nourishment/Supplement quantity 240 (ml) IV 1058 2633 65 Sodium Chloride 0.9% 1,000 ml @ 993 2168 150 mls/hr IV .Q6H40M [facility] Rx#: [id number] Zithromax 500 mg In Dextrose 5% 400 in Water 250 ml @ 250 mls/hr IV Q24H [facility] Rx#:[id number] Oral 0 240 Output: Urine Catheter Amount 1630 1750 Other: Meal Dinner Percent of Meal Consumed 75% Feeding Ability Needs Supervision Nourishment/Supplement name Ensure Urine Appearance Cloudy Cloudy Purulent Hematuria Small Blood Clots Urine Color Blood Tinged Dark Yellow Urine Odor Normal # Bowel Movements 0 OBJ DATA Labs CBC & Chem 7: 04/14/21 05:15 04/14/21 05:15 Labs: Laboratory Results - last 24 hr 04/13/21 04/14/21 04/14/21 18:35 05:15 05:15 WBC 11.7 H RBC 3.52 L Hgb 13.4 L Hct 38.6 L MCV 109.7 H MCH 38.1 H MCHC 34.7 RDW 13.4 Plt Count 62 L MPV 11.8 H Neut % (Auto) 81.0 H Lymph % (Auto) 4.1 L [place] % (Auto) 14.5 H Eos % (Auto) 0.1 Baso % (Auto) 0.3 Lymph # (Auto) 0.48 L [place] # (Auto) 1.69 H Eos # (Auto) 0.01 Baso # (Auto) 0.03 Absolute Neutrophils 9.48 H Sodium 135 Potassium 3.5 Chloride 100 Carbon Dioxide 23 Anion Gap 12.0 BUN 49 H Creatinine 1.8 H GFR Calculation 36 Glucose 135 H Hemoglobin A1c 5.5 Estim Average Glucose 111 Uric Acid 7.5 Calcium 7.9 L Phosphorus 4.7 H Magnesium 2.2 Total Bilirubin 0.7 Direct Bilirubin 0.4 H GGT 272 H AST 275 H ALT 102 H Alkaline Phosphatase 105 Lactate Dehydrogenase 530 H Total Protein 6.1 Albumin 2.4 L Globulin 3.7 Albumin/Globulin Ratio 0.6 L Triglycerides 121 Microbiology 04/13/21 19:38 Blood Culture - Preliminary Blood Gram positive cocci 04/13/21 18:58 Blood Culture - Preliminary Blood Gram positive cocci 04/13/21 20:26 Urine Culture - Preliminary Urine - Clean Void Mid-Stream Meds: Medications Acetaminophen (Acetaminophen 325 Mg Tablet) 650 mg PO Q6HP PRN; Protocol PRN Reason: Per Pain Protocol/Fever > 101 Last Admin: 04/13/21 23:12 Dose: 650 mg Documented by: Albuterol/Ipratropium (Ipratropium/Albuterol 3 Ml Ampul.Neb) 3 ml NEB Q6HP PRN PRN Reason: Dyspnea Carbamazepine (Carbamazepine 200 Mg Tablet) 100 mg PO BID [facility] Last Admin: 04/14/21 20:18 Dose: 100 mg Documented by: Ceftriaxone Sodium (Ceftriaxone 1 Gm Vial) 1 gm IV Q24H [facility] Last Admin: 04/14/21 08:39 Dose: 1 gm Documented by: Folic Acid (Folic Acid 1 Mg Tablet) 1 mg PO DAILY [facility] Last Admin: 04/14/21 08:53 Dose: 1 mg Documented by: Sodium Chloride (Sodium Chloride 0.9%) 1,000 mls @ 150 mls/hr IV .Q6H40M [facility] Last Admin: 04/14/21 14:01 Dose: 150 mls/hr Documented by: Azithromycin 500 mg/ Dextrose 250 mls @ 250 mls/hr IV Q24H [facility]; Protocol Stop: 04/16/21 10:59 Last Infusion: 04/14/21 12:05 Dose: Infused Documented by: Acetaminophen (Ofirmev) 650 mg in 65 mls @ 130 mls/hr IV Q6HP PRN; Protocol PRN Reason: PRN Fever> 100.4 Last Infusion: 04/14/21 18:12 Dose: Infused Documented by: Iron Carb/Multivit/[place]/Folic Acid (Multivit,Ther Iron,Ca,Fa & Min 1 Tablet) 1 tab PO DAILY [facility] Last Admin: 04/14/21 08:53 Dose: 1 tab Documented by: Levothyroxine Sodium (Levothyroxine 25 Mcg Tablet) 25 mcg PO QAMAC [facility] Last Admin: 04/14/21 08:53 Dose: 25 mcg Documented by: Lorazepam (Lorazepam 2 Mg/Ml Vial) 0 mg IV Q4HP PRN; Protocol PRN Reason: Alcohol Withdrawal Last Admin: 04/14/21 17:43 Dose: 2 mg Documented by: Ondansetron HCl (Ondansetron 4 Mg Odt Tablet) 4 mg SL Q6HP PRN PRN Reason: Nausea And Vomiting Ondansetron HCl (Ondansetron 4 Mg/2 Ml Vial) 4 mg IV Q6HP PRN PRN Reason: Nausea And Vomiting Pantoprazole Sodium (Pantoprazole 40 Mg Tablet) 40 mg PO QAMAC [facility] Last Admin: 04/14/21 08:53 Dose: 40 mg Documented by: Senna (Sennosides 1 Tablet) 2 tab PO HS [facility] Last Admin: 04/14/21 20:17 Dose: 2 tab Documented by: Sodium Chloride (0.9 % Sodium Chloride 10 Ml Syringe) 10 ml IV Q8 [facility] Last Admin: 04/14/21 14:02 Dose: 10 ml Documented by: Thiamine HCl (Thiamine 100 Mg Tablet) 100 mg PO QDAY [facility] Last Admin: 04/14/21 08:53 Dose: 100 mg Documented by: Vancomycin HCl (Vancomycin Per Pharmacy) 1 order IV ONCE ONE; Protocol Stop: 04/14/21 19:43 Imaging and cardiology Chest x-ray: Additional comments: Date of Service: 04/13/21 Procedure(s): XR chest 1V portable IMPRESSION: 1. Left basilar pulmonary parenchymal density consistent with pneumonia 2. Otherwise negative AP chest x-ray CT scan - head: Additional comments: Date of Service: 04/13/21 Procedure(s): CT head/brain wo con IMPRESSION: 1. Cerebral atrophy. Periventricular white matter abnormality consistent with small vessel ischemic change 2. No acute or focal abnormality A/P Narrative A/P Narrative: Severe sepsis -Mild leukocytosis, lactate 2.1 -Source of infection both lung and urine -No septic shock -Blood cultures from admission growing gram-positive cocci in clusters in 4/4 bottles at 24 hrs Left lower lobe pneumonia -Infiltrate on chest x-ray -May represent community-acquired pneumonia -Though on left side, could also be aspiration (apparently patient was laying on left side on the floor) Acute cystitis -Patient with significant pyuria and bacteriuria on urine analysis -Suspect also source of sepsis Acute kidney injury -Creatinine 2.0, unaware of any history of renal disease -Suspect this may be multifactorial from sepsis and dehydration/intravascular volume depletion -Post renal causes may also be contributing -Improved to 1.8 on 04/14 after fluids and Lima catheter placement Bladder outlet obstruction and urinary retention -Significantly distended bladder, with bladder scan showing >999 mL urine -Catheter placed, with significant return of urine Rhabdomyolysis -Moderate, CK 5881 -Likely compression injury of muscles from lying on concrete floor for 2 days -Less likely because of renal failure at this level (usually when CK approaches 10,000) Dehydration -Elevated BUN, hyaline casts on bladder scan consistent with dehydration -Have been laying on the floor of his workshop for 2 days, unclear if he had had anything to drink during that time. Alcohol abuse and withdrawal -Per history, patient drinks 2 bottles of wine a day -Was able to tell me that he had been to rehabilitation before -Provided history as last drink was 3 days ago -Suspect part of his tachycardia and confusion is related to withdrawal in addition to sepsis -Improved after lorazepam per [facility] protocol Thrombocytopenia -May be secondary to sepsis, though may also be effects of chronic alcohol consumption Hyponatremia -Suspect secondary to volume depletion and dehydration Hypothyroidism -On levothyroxine Partial complex seizures -On carbamazepine -Patient could not describe what types of seizures he experiences Plan: Continue with ceftriaxone and azithromycin to cover pneumonia Continue ceftriaxone to also cover urine Add vancomycin for gram-positive cocci in clusters from blood cultures Follow-up urine and blood culture results, narrow antibiotics as able Continue [facility] protocol Continue Lima catheter for urinary retention Continue to follow intake and output Follow platelets Follow sodium with fluid resuscitation IV fluids for rhabdomyolysis, follow CK Seizure precautions Continue levothyroxine and carbamazepine PT and OT evaluations SCDs for DVT prophylaxis, holding enoxaparin in the face of thrombocytopenia Time Spent With Patient Time: Total time spent is greater than 50% in coordination of care (as documented) at patient's floor/unit and/or counseling patient: Total time spent with greater than 50% in coordination of care (as documented) at patient's floor/unit and/or counseling patient:: Greater than 35 minutes QUALITY VTE Deep Vein Thrombosis/Pulmonary Embolism Present on Admission: No
[2021-04-14] MEDS ORDERED: SENNOSIDES 1 TABLET PO SCH (21:00)
[2021-04-14] MEDS: VANCOMYCIN 1,000 MG in 0.9 % SODIUM CHLORIDE 250 ML IV SCH (21:20)
[2021-04-15] MEDS: ACETAMINOPHEN 650 MG/65 ML BAG IV PRN ×3 (03:07→18:25)
[2021-04-15] MEDS: 0.9 % SODIUM CHLORIDE 10 ML SYRINGE IV SCH ×3 (05:28→22:28)
[2021-04-15 07:07] LABS: ALT/SGPT 120 U/L (<40); AST/SGOT 260 U/L (<40); Albumin 2.2 gm/dL (3.2-5.2); Albumin/Globulin Ratio 0.6 (1.0-2.3); Alkaline Phosphatase 118 U/L (39-117); Bilirubin,Direct 0.6 mg/dL (<0.3); Bilirubin,Total 0.8 mg/dL (0.1-1.0); Blood Urea Nitrogen 48 mg/dL (8-23); Calcium 8.1 mg/dL (8.6-10.4); Carbon Dioxide 24 mmol/L (22-30); Chloride 104 mmol/L (96-108); Globulin 3.7 gm/dL (2.2-3.7); Glomerular Filtration Rate 49; Glucose 109 mg/dL (70-105); Lactate Dehydrogenase 462 U/L (135-225); Phosphorous 3.4 mg/dL (2.5-4.5); Triglycerides 112 mg/dL (<150); Uric Acid 7.7 mg/dL (2.5-8.0)
[2021-04-15] MEDS ORDERED: POTASSIUM CHLORIDE 20 MEQ TABLET PO PRN (07:10)
[2021-04-15] MEDS: LEVOTHYROXINE 25 MCG TABLET PO SCH (07:34)
[2021-04-15] MEDS: PANTOPRAZOLE 40 MG TABLET PO SCH (07:34)
[2021-04-15] MEDS: 0.9 % SODIUM CHLORIDE 1,000 ML IV SCH ×3 (07:40→22:25)
[2021-04-15 07:43] LABS: Creatine Kinase 2798 U/L (24-195)
--- NOTE | 2021-04-15 07:56 | Ultrasound Report ---
INDICATION: abnormal liver enzymes, sepsis TECHNIQUE: Grayscale and color flow Doppler spectral imaging COMPARISON: None. FINDINGS: Gallbladder:Negative. No cholelithiasis. No gallbladder wall thickening or pericholecystic fluid Common bile duct:No intra or extrahepatic bile duct dilatation.. Common bile duct measures4 mm Liver:Liver is mildly heterogeneous and echogenic. Liver attenuates sound relative to the right kidney. Findings are suggestive of hepatic steatosis. No focal hepatic mass. Liver contour is smooth.. Liver [id number] cm Portal vein:Normal hepatopedal portal venous flow Pancreas:Visualized portions of the pancreas are normal IMPRESSION: 1. Heterogeneous and echogenic liver most consistent with hepatic steatosis. No focal abnormality 2. Negative gallbladder Interpreted and Authenticated by: Andres Harrington 04/15/21
[2021-04-15 07:59] LABS: Basophils # (Auto) 0.03 K/mcL (0.00-0.20); Basophils % (Auto) 0.3 % (0.0-2.0); Eosinophils # (Auto) 0.04 K/mcL (0.00-0.70); Eosinophils % (Auto) 0.3 % (0.0-7.0); Hematocrit 36.4 % (41.0-55.0); Hemoglobin 12.9 g/dL (13.5-16.5); Lymphocytes # (Auto) 0.84 K/mcL (1.50-4.80); Lymphocytes % (Auto) 7.3 % (15.0-49.0); Mean Cell Volume 107.1 fL (80.0-100.0); Mean Corpuscular HGB Conc 35.4 g/dL (31.0-36.0); Mean Platelet Volume 12.6 fL (7.4-10.4); Monocytes # (Auto) 1.72 K/mcL (0.10-0.90); Monocytes % (Auto) 14.9 % (1.0-12.0); Platelet Count 65 K/mcL (140-440); Red Cell Distribution Width 13.1 % (11.5-14.5); WBC 11.5 K/mcL (4.5-11.0)
[2021-04-15] MEDS ORDERED: LOPERAMIDE 2 MG CAPSULE PO PRN (08:04)
[2021-04-15] MEDS: MULTIVIT,THER IRON,CA,FA & MIN 1 TABLET PO SCH ×2 (08:19→12:28)
[2021-04-15] MEDS: THIAMINE 100 MG TABLET PO SCH ×2 (08:19→12:29)
[2021-04-15] MEDS: VANCOMYCIN 1,000 MG in 0.9 % SODIUM CHLORIDE 250 ML IV SCH ×2 (08:19→20:25)
[2021-04-15] MEDS: FOLIC ACID 1 MG TABLET PO SCH (08:19)
[2021-04-15] MEDS: carBAMazepine 200 MG TABLET PO SCH ×2 (08:19→20:30)
[2021-04-15] MEDS: cefTRIAXone 1 GM VIAL IV SCH (08:19)
[2021-04-15 08:48] LABS: Neutrophils % (Auto) 77.2 % (38.0-78.0)
[2021-04-15] MEDS: AZITHROMYCIN 500 MG in DEXTROSE 5% IN WATER 250 ML IV SCH (09:32)
[2021-04-15] MEDS ORDERED: POTASSIUM CHLORIDE 40 MEQ in DEXTROSE 5% IN WATER 500 ML IV ONE (11:00)
--- NOTE | 2021-04-15 11:34 | Internal Med Progress Note ---
SUBJECTIVE Subjective Patient information: Note initiated : 04/15/21 at 11:32 am Service Date, if different from initiated Date: [] Patient: Fahad Jimenez 75 y/o M admitted on 04/13/21 for fall. Chief Complaint: Follow-up sepsis Interval history: Mr. Jimenez is a 75 year old M with a history of partial complex seizures, hypothyroidism, alcohol abuse who presents the ED via EMS after being down on the floor of his workshop for 2 days. History is obtained speaking with Dr. Ramirez in the ED, reviewing records and limited history from the patient who is quite confused. Per report from his , he drinks 2 bottles of wine a day. At one point of my interview, he does tell me that he has not drank alcohol in 3 days. Apparently the patient has sleep in the back patio in the warm weather. He has been doing that this week. 2 days ago patient became weak in his arms and legs. Because of the sun and heat, he crawled into his covered workshop and lay on the concrete floor since then. Does not appear he has had much to eat or drink in that timeframe. He is quite vague on how long he had been there. His was concerned and called EMS today. Patient is unable to elaborate further on what is passed in the last 2 days. Upon arrival by EMS temperatures febrile to 102, pulse was in the 120s. He received IV fluids. His oxygen saturations were 89% in the field and he was tachypneic. Upon arrival in the ED, patient remained tachycardic at 122 blood pressure is 163/95 respiratory rate was 29. He received 2 further liters of IV fluids in the ED (3 total including EMS). Evaluation revealed white count of 11,000, thrombocytopenia at 64,000, hyponatremia 129. BUN is elevated at 46 and creatinine 2.0, with no known history of renal disease per his . Lactate is elevated 2.1. Troponin mildly abnormal at 0.04 and CPK is in the [address] scan of the head showed old chronic changes. Chest x-ray concerning for left lower lobe infiltrate. Patient is being admitted for treatment of severe sepsis associated with pneumonia. Subsequent to arriving on the floor, urine analysis returns showing significant pyuria and bacteriuria, thus the patient is being treated for sepsis from both pulmonary and urinary source. fter admission yesterday, the patient became more more confused, eventually moved to PCU status. Treated with CIWA protocol for alcohol withdrawal. This morning he is more alert and clearer. His is bedside. She explains that he had refused when she had attempted to call EMS earlier. He had been on his left side for about 2 days. She did bring him some food and fluids to drink. He apparently drinks regularly and consistently. Lima catheter placed yesterday evening for urinary retention. Labs show a white count of 11,000, unchanged. This evening at about 24 hours of incubation, 4/4 bottles of admit blood cultures are positive for gram-positive cocci in clusters. 8/3awake, conversant this morning. Is having trouble swallowing. Is having difficulty self-feeding. Speech evaluation pending. Liver enzymes elevated and about the same, and hepatocellular pattern. Troponin 0 0.08 this morning, was 0.04 at admission, no chest pain. Lima catheter remains in place, still very weak. Constitutional Vitals: Vital Signs Temp Pulse Resp BP Pulse Ox 100.8 F H 108 H 30 H 135/75 97 04/15/21 11:01 04/15/21 11:01 04/15/21 11:01 04/15/21 11:01 04/15/21 11:01 Period Temp Pulse Resp BP Sys/Reno Pulse Ox Last 24 Hr 99.2 F-102.4 F 94-132 13-32 108-159/62-118 92-98 Intake and Output 04/14/21 04/15/21 04/15/21 21:59 05:59 13:59 Intake Total 1542014 74 Output Total 1752239 Balance - - 740 Weight 217 lb 1.6 oz GENERAL: In bed, chronically ill-appearing RESPIRATORY: Few crackles bilaterally CARDIOVASCULAR: Regular, tachycardic at times ABDOMEN: Soft, nontender, no suprapubic tenderness EXTREMITIES: No edema NEURO: Alert, oriented to self, [facility], situation. Generalized weak ness. Poor coordination and getting food to mouth. Intake & Output: Intake & Output 04/14/21 04/15/21 04/15/21 21:59 05:59 13:59 Intake Total 1542014 740 Output Total 1752239 Balance - 740 Weight 217 lb 1.6 oz Intake: Nourishment/Supplement quantity 240 240 (ml) IV 1065 1315 500 Sodium Chloride 0.9% 1,000 ml @ 1000 1000 150 mls/hr IV .Q6H40M [facility] Rx#: [id number] Zithromax 500 mg In Dextrose 5% 250 in Water 250 ml @ 250 mls/hr IV Q24H [facility] Rx#:[id number] Vancomycin 1,000 mg In Sodium 250 250 Chloride 0.9% 250 ml @ 250 mls/ hr IV Q12H [facility] Rx#:[id number] Oral 240 700 Output: Urine Catheter Amount 1750 2240 Other: Meal Dinner Breakfast Percent of Meal Consumed 75% 100% Feeding Ability Needs Supervision Nourishment/Supplement name Ensure Urine Appearance Cloudy Sediment Uretheral (Lima) Sediment Urine Color Dark Yellow Light Ellie Uretheral (Lima) Light Ellie Urine Odor Normal OBJ DATA Labs CBC & Chem 7: 04/15/21 05:10 04/15/21 05:10 Labs: Abnormal Lab Results 04/15/21 04/15/21 04/15/21 05:10 05:10 05:10 WBC 11.5 H RBC 3.40 L Hgb 12.9 L Hct 36.4 L MCV 107.1 H MCH 37.9 H Plt Count 65 L MPV 12.6 H Neut % (Auto) Lymph % (Auto) 7.3 L Bourbon % (Auto) 14.9 H Lymph # (Auto) 0.84 L [place] # (Auto) 1.72 H Absolute Neutrophils 8.90 H VBG Lactic Acid Sodium Potassium 3.2 L Chloride BUN 48 H Creatinine 1.4 H POC Creatinine Glucose 109 H Calcium 8.1 L Phosphorus Direct Bilirubin 0.6 H GGT 368 H AST 260 H ALT 120 H Alkaline Phosphatase 118 H Lactate Dehydrogenase 462 H Total Creatine Kinase Troponin T 0.08 H* Albumin 2.2 L Globulin Albumin/Globulin Ratio 0.6 L Urine Appearance Urine Protein Urine Occult Blood Ur Leukocyte Esterase Urine RBC Urine WBC Urine Bacteria Hyaline Casts 04/15/21 04/14/21 04/14/21 05:09 05:15 05:15 WBC 11.7 H RBC 3.52 L Hgb 13.4 L Hct 38.6 L MCV 109.7 H MCH 38.1 H Plt Count 62 L MPV 11.8 H Neut % (Auto) 81.0 H Lymph % (Auto) 4.1 L [place] % (Auto) 14.5 H Lymph # (Auto) 0.48 L [place] # (Auto) 1.69 H Absolute Neutrophils 9.48 H VBG Lactic Acid Sodium Potassium Chloride BUN 49 H Creatinine 1.8 H POC Creatinine Glucose 135 H Calcium 7.9 L Phosphorus 4.7 H Direct Bilirubin 0.4 H GGT 272 H AST 275 H ALT 102 H Alkaline Phosphatase Lactate Dehydrogenase 530 H Total Creatine Kinase 2798 H Troponin T Albumin 2.4 L Globulin Albumin/Globulin Ratio 0.6 L Urine Appearance Urine Protein Urine Occult Blood Ur Leukocyte Esterase Urine RBC Urine WBC Urine Bacteria Hyaline Casts 04/13/21 04/13/21 04/13/21 20:26 18:58 18:58 WBC RBC Hgb Hct MCV MCH Plt Count MPV Neut % (Auto) Lymph % (Auto) Bourbon % (Auto) Lymph # (Auto) [place] # (Auto) Absolute Neutrophils VBG Lactic Acid 2.1 H Sodium Potassium Chloride BUN Creatinine POC Creatinine Glucose Calcium Phosphorus Direct Bilirubin GGT AST ALT Alkaline Phosphatase Lactate Dehydrogenase Total Creatine Kinase Troponin T 0.04 H* Albumin Globulin Albumin/Globulin Ratio Urine Appearance Turbid A Urine Protein 100 A Urine Occult Blood >=1.0 A Ur Leukocyte Esterase 250 A Urine RBC 8 H Urine WBC > 182 H Urine Bacteria Few A Hyaline Casts 83 H 04/13/21 04/13/21 04/13/21 18:58 18:58 18:35 WBC 11.7 H RBC 3.63 L Hgb Hct 38.5 L MCV 106.1 H MCH 38.0 H Plt Count 60 L MPV 11.8 H Neut % (Auto) 88.6 H Lymph % (Auto) 2.2 L [place] % (Auto) Lymph # (Auto) 0.26 L [place] # (Auto) 1.04 H Absolute Neutrophils 10.36 H VBG Lactic Acid Sodium 129 L Potassium Chloride 92 L BUN 46 H Creatinine 2.0 H POC Creatinine 1.8 H Glucose 149 H Calcium 8.0 L Phosphorus Direct Bilirubin GGT AST 275 H ALT 108 H Alkaline Phosphatase Lactate Dehydrogenase Total Creatine Kinase 5881 H Troponin T Albumin 2.6 L Globulin 4.0 H Albumin/Globulin Ratio 0.6 L Urine Appearance Urine Protein Urine Occult Blood Ur Leukocyte Esterase Urine RBC Urine WBC Urine Bacteria Hyaline Casts Meds: Medications Acetaminophen (Acetaminophen 325 Mg Tablet) 650 mg PO Q6HP PRN; Protocol PRN Reason: Per Pain Protocol/Fever > 101 Last Admin: 04/13/21 23:12 Dose: 650 mg Documented by: Albuterol/Ipratropium (Ipratropium/Albuterol 3 Ml Ampul.Neb) 3 ml NEB Q6HP PRN PRN Reason: Dyspnea Carbamazepine (Carbamazepine 200 Mg Tablet) 100 mg PO BID [facility] Last Admin: 04/15/21 08:19 Dose: 100 mg Documented by: Ceftriaxone Sodium (Ceftriaxone 1 Gm Vial) 1 gm IV Q24H [facility] Last Admin: 04/15/21 08:19 Dose: 1 gm Documented by: Folic Acid (Folic Acid 1 Mg Tablet) 1 mg PO DAILY [facility] Last Admin: 04/15/21 08:19 Dose: 1 mg Documented by: Sodium Chloride (Sodium Chloride 0.9%) 1,000 mls @ 150 mls/hr IV .Q6H40M [facility] Last Admin: 04/15/21 07:40 Dose: 150 mls/hr Documented by: Azithromycin 500 mg/ Dextrose 250 mls @ 250 mls/hr IV Q24H [facility]; Protocol Stop: 04/16/21 10:59 Last Infusion: 04/15/21 10:34 Dose: Infused Documented by: Acetaminophen (Ofirmev) 650 mg in 65 mls @ 130 mls/hr IV Q6HP PRN; Protocol PRN Reason: PRN Fever> 100.4 Last Infusion: 04/15/21 04:01 Dose: Infused Documented by: Vancomycin HCl 1,000 mg/ (Sodium Chloride) 250 mls @ 250 mls/hr IV Q12H [facility] Last Infusion: 04/15/21 09:45 Dose: Infused Documented by: Potassium Chloride 40 meq/ (Dextrose) 520 mls @ 130 mls/hr IV ONCE ONE Stop: 04/15/21 14:59 Last Admin: 04/15/21 11:06 Dose: 130 mls/hr Documented by: Iron Carb/Multivit/Talent Specialist/Folic Acid (Multivit,Ther Iron,Ca,Fa & Min 1 Tablet) 1 tab PO DAILY [facility] Last Admin: 04/15/21 08:19 Dose: 1 tab Documented by: Levothyroxine Sodium (Levothyroxine 25 Mcg Tablet) 25 mcg PO QAMAC [facility] Last Admin: 04/15/21 07:34 Dose: 25 mcg Documented by: Loperamide HCl (Loperamide 2 Mg Capsule) 2 mg PO PRN PRN PRN Reason: Diarrhea Lorazepam (Lorazepam 2 Mg/Ml Vial) 0 mg IV Q4HP PRN; Protocol PRN Reason: Alcohol Withdrawal Last Admin: 04/14/21 17:43 Dose: 2 mg Documented by: Ondansetron HCl (Ondansetron 4 Mg Odt Tablet) 4 mg SL Q6HP PRN PRN Reason: Nausea And Vomiting Ondansetron HCl (Ondansetron 4 Mg/2 Ml Vial) 4 mg IV Q6HP PRN PRN Reason: Nausea And Vomiting Pantoprazole Sodium ([facility]antoprazole 40 Mg Tablet) [facility] Last Admin: 04/15/21 07:34 Dose: 40 mg Documented by: Pneumococcal Polyvalent Vaccine (Pneumococcal 23-Estrella P-Sac Vac 0.5 Ml Syringe) 0.5 ml IM .ONCE ONE Stop: 04/16/21 10:01 Potassium Chloride (Potassium Chloride 20 Meq Tablet) 40 meq PO UD PRN PRN Reason: Potssium is 3-3.5 Senna (Sennosides 1 Tablet) 2 tab PO HSP PRN PRN Reason: Constipation Sodium Chloride (0.9 % Sodium Chloride 10 Ml Syringe) 10 ml IV Q8 [facility] Last Admin: 04/15/21 05:28 Dose: 10 ml Documented by: Thiamine HCl (Thiamine 100 Mg Tablet) 100 mg PO QDAY [facility] Last Admin: 04/15/21 08:19 Dose: 100 mg Documented by: Vancomycin HCl (Vancomycin Per Pharmacy) 1 order IV UD [facility]; Protocol Imaging and cardiology US - abdomen: Additional comments: Date of Service: 04/15/21 Procedure(s): US liver INDICATION: abnormal liver enzymes, sepsis IMPRESSION: 1. Heterogeneous and echogenic liver most consistent with hepatic steatosis. No focal abnormality 2. Negative gallbladder A/P Narrative A/P Narrative: Severe sepsis -Mild leukocytosis, lactate 2.1 at admission -Source of infection both lung and urine -No septic shock -Blood cultures from admission growing gram-positive cocci in clusters in 4/4 bottles at 24 hrs, possible skin source, pulmonary also possible Left lower lobe pneumonia -Infiltrate on chest x-ray -May represent community-acquired pneumonia -Though on left side, could also be aspiration (apparently patient was laying on left side on the floor) Acute cystitis -Patient with significant pyuria and bacteriuria on urine analysis, though culture no growth -Suspect also source of sepsis Acute kidney injury -Creatinine 2.0, unaware of any history of renal disease -Suspect this may be multifactorial from sepsis and dehydration/intravascular volume depletion -Post renal causes may also be contributing -Improved to 1.8 on 04/14 after fluids and Lima catheter placement, continues to improve 04/15 Bladder outlet obstruction and urinary retention -Significantly distended bladder, with bladder scan showing >999 mL urine -Catheter placed, with significant return of urine Rhabdomyolysis -Moderate, CK 5881 at admission, improving -Likely compression injury of muscles from lying on concrete floor for 2 days -Less likely because of renal failure at this level (usually when CK approaches 10,000) Dehydration -Elevated BUN, hyaline casts on bladder scan consistent with dehydration -Have been laying on the floor of his workshop for 2 days, unclear if he had had anything to drink during that time. Alcohol abuse and withdrawal -Per history, patient drinks 2 bottles of wine a day -Was able to tell me that he had been to rehabilitation before -Provided history as last drink was 3 days ago -Suspect part of his tachycardia and confusion is related to withdrawal in addition to sepsis -Improved after lorazepam per CIWA protocol Abnormal liver enzymes -Hepatocellular pattern -Likely related to alcohol use -Fatty findings on ultrasound, no biliary disease Abnormal troponin -Suspect demand perfusion mismatch, not ACS Thrombocytopenia -May be secondary to sepsis, though may also be effects of chronic alcohol consumption Hyponatremia -Suspect secondary to volume depletion and dehydration Hypothyroidism -On levothyroxine Partial complex seizures -On carbamazepine -Patient could not describe what types of seizures he experiences Plan: Continue with ceftriaxone and azithromycin to cover pneumonia Continue ceftriaxone to also cover urine Continue vancomycin for gram-positive cocci in clusters from blood cultures Follow-up urine and blood culture results, narrow antibiotics as able Check surveillance cultures in the morning Check echocardiogram given mildly abnormal troponin and gram-positive cocci bacteremia Continue CIWA protocol Continue Lima catheter for urinary retention Continue to follow intake and output Follow platelets Follow sodium with fluid resuscitation IV fluids for rhabdomyolysis, follow CK Seizure precautions Continue levothyroxine and carbamazepine PT and OT evaluations SCDs for DVT prophylaxis, holding enoxaparin in the face of thrombocytopenia Time Spent With Patient Time: Total time spent is greater than 50% in coordination of care (as documented) at patient's floor/unit and/or counseling patient: Total time spent with greater than 50% in coordination of care (as documented) at patient's floor/unit and/or counseling patient:: Greater than 35 minutes QUALITY VTE Deep Vein Thrombosis/Pulmonary Embolism Present on Admission: No
--- NOTE | 2021-04-15 14:05 | Internal Med Progress Note ---
SUBJECTIVE Subjective Patient information: Note initiated : 04/15/21 at 1:56 pm Service Date, if different from initiated Date: [] Patient: Fahad Jimenez 75 y/o M admitted on 04/13/21 for fall. Chief Complaint: [] Interval history: Mr. Jimenez is a 75 year old M with a history of partial complex seizures, hypothyroidism, alcohol abuse who presents the ED via EMS after being down on the floor of his workshop for 2 days. History is obtained speaking with Dr. Ramirez in the ED, reviewing records and limited history from the patient who is quite confused. Per report from his , he drinks 2 bottles of wine a day. At one point of my interview, he does tell me that he has not drank alcohol in 3 days. Apparently the patient has sleep in the back patio in the warm weather. He has been doing that this week. 2 days ago patient became weak in his arms and legs. Because of the sun and heat, he crawled into his covered workshop and lay on the concrete floor since then. Does not appear he has had much to eat or drink in that timeframe. He is quite vague on how long he had been there. His was concerned and called EMS today. Patient is unable to elaborate further on what is passed in the last 2 days. Upon arrival by EMS temperatures febrile to 102, pulse was in the 120s. He received IV fluids. His oxygen saturations were 89% in the field and he was tachypneic. Upon arrival in the ED, patient remained tachycardic at 122 blood pressure is 163/95 respiratory rate was 29. He received 2 further liters of IV fluids in the ED (3 total including EMS). Evaluation revealed white count of 11,000, thrombocytopenia at 64,000, hyponatremia 129. BUN is elevated at 46 and creatinine 2.0, with no known history of renal disease per his . Lactate is elevated 2.1. Troponin mildly abnormal at 0.04 and CPK is in the [address] scan of the head showed old chronic changes. Chest x-ray concerning for left lower lobe infiltrate. Patient is being admitted for treatment of severe sepsis associated with pneumonia. Subsequent to arriving on the floor, urine analysis returns showing significant pyuria and bacteriuria, thus the patient is being treated for sepsis from both pulmonary and urinary source. fter admission yesterday, the patient became more more confused, eventually moved to PCU status. Treated with CIWA protocol for alcohol withdrawal. This morning he is more alert and clearer. His is bedside. She explains that he had refused when she had attempted to call EMS earlier. He had been on his left side for about 2 days. She did bring him some food and fluids to drink. He apparently drinks regularly and consistently. Lima catheter placed yesterday evening for urinary retention. Labs show a white count of 11,000, unchanged. This evening at about 24 hours of incubation, 4/4 bottles of admit blood cultures are positive for gram-positive cocci in clusters. 8/3awake, conversant this morning. Is having trouble swallowing. Is having difficulty self-feeding. Speech evaluation pending. Liver enzymes elevated and about the same, and hepatocellular pattern. Troponin 0 0.08 this morning, was 0.04 at admission, no chest pain. Lima catheter remains in place, still very weak. 04/16 Constitutional Vitals: Vital Signs Temp Pulse Resp BP Pulse Ox 100.2 F H 109 H 23 H 140/99 96 04/15/21 13:11 04/15/21 13:11 04/15/21 13:11 04/15/21 13:01 04/15/21 13:11 Period Temp Pulse Resp BP Sys/Reno Pulse Ox Last 24 Hr 99.2 F-102.4 F 94-132 13-32 108-159/62-118 92-98 Intake and Output 04/14/21 04/15/21 04/15/21 21:59 05:59 13:59 Intake Total 1545 2014 805 Output Total 1750 2240 Balance -205 -225 805 Weight 98.475 kg Intake & Output: Intake & Output 04/14/21 04/15/21 04/15/21 21:59 05:59 13:59 Intake Total 1545 2014 805 Output Total 1750 2240 Balance -205 -225 805 Weight 98.475 kg Intake: Nourishment/Supplement quantity 240 240 (ml) IV 1065 1315 565 Sodium Chloride 0.9% 1,000 ml @ 1000 1000 150 mls/hr IV .Q6H40M [facility] Rx#: [id number] Zithromax 500 mg In Dextrose 5% 250 in Water 250 ml @ 250 mls/hr IV Q24H [facility] Rx#:[id number] Vancomycin 1,000 mg In Sodium 250 250 Chloride 0.9% 250 ml @ 250 mls/ hr IV Q12H [facility] Rx#:[id number] Oral 240 700 Output: Urine Catheter Amount 2021 6960 Other: Meal Dinner Breakfast Percent of Meal Consumed 75% 100% Feeding Ability Needs Supervision Nourishment/Supplement name Ensure Urine Appearance Cloudy Sediment Uretheral (Lima) Sediment Urine Color Dark Yellow Light Ellie Uretheral (Lima) Light Ellie Urine Odor Normal Exam: General: Alert, Awake, No acute Distress Eyes/N/T: EOMI, Head/Neck: neck supple, CV: RRR, No murmurs, Pulm: mild rales b/l, no wheezing/rhonchi/rales Abd: soft, nontender, +BS x4 Ext: no clubbing/cyanosis/edema Neuro: Alert, no focal deficits, moves all extremities, Skin: warm/dry OBJ DATA Labs CBC & Chem 7: 04/15/21 05:10 04/15/21 05:10 Labs: Abnormal Lab Results 04/15/21 04/15/21 04/15/21 05:10 05:10 05:10 WBC 11.5 H RBC 3.40 L Hgb 12.9 L Hct 36.4 L MCV 107.1 H MCH 37.9 H Plt Count 65 L MPV 12.6 H Neut % (Auto) Lymph % (Auto) 7.3 L [place] % (Auto) 14.9 H Lymph # (Auto) 0.84 L [place] # (Auto) 1.72 H Absolute Neutrophils 8.90 H VBG Lactic Acid Sodium Potassium 3.2 L Chloride BUN 48 H Creatinine 1.4 H POC Creatinine Glucose 109 H Calcium 8.1 L Phosphorus Direct Bilirubin 0.6 H GGT 368 H AST 260 H ALT 120 H Alkaline Phosphatase 118 H Lactate Dehydrogenase 462 H Total Creatine Kinase Troponin T 0.08 H* Albumin 2.2 L Globulin Albumin/Globulin Ratio 0.6 L Urine Appearance Urine Protein Urine Occult Blood Ur Leukocyte Esterase Urine RBC Urine WBC Urine Bacteria Hyaline Casts 04/15/21 04/14/21 04/14/21 05:09 05:15 05:15 WBC 11.7 H RBC 3.52 L Hgb 13.4 L Hct 38.6 L MCV 109.7 H MCH 38.1 H Plt Count 62 L MPV 11.8 H Neut % (Auto) 81.0 H Lymph % (Auto) 4.1 L [place] % (Auto) 14.5 H Lymph # (Auto) 0.48 L [place] # (Auto) 1.69 H Absolute Neutrophils 9.48 H VBG Lactic Acid Sodium Potassium Chloride BUN 49 H Creatinine 1.8 H POC Creatinine Glucose 135 H Calcium 7.9 L Phosphorus 4.7 H Direct Bilirubin 0.4 H GGT 272 H AST 275 H ALT 102 H Alkaline Phosphatase Lactate Dehydrogenase 530 H Total Creatine Kinase 2798 H Troponin T Albumin 2.4 L Globulin Albumin/Globulin Ratio 0.6 L Urine Appearance Urine Protein Urine Occult Blood Ur Leukocyte Esterase Urine RBC Urine WBC Urine Bacteria Hyaline Casts 04/13/21 04/13/21 04/13/21 20:26 18:58 18:58 WBC RBC Hgb Hct MCV MCH Plt Count MPV Neut % (Auto) Lymph % (Auto) [place] % (Auto) Lymph # (Auto) [place] # (Auto) Absolute Neutrophils VBG Lactic Acid 2.1 H Sodium Potassium Chloride BUN Creatinine POC Creatinine Glucose Calcium Phosphorus Direct Bilirubin GGT AST ALT Alkaline Phosphatase Lactate Dehydrogenase Total Creatine Kinase Troponin T 0.04 H* Albumin Globulin Albumin/Globulin Ratio Urine Appearance Turbid A Urine Protein 100 A Urine Occult Blood >=1.0 A Ur Leukocyte Esterase 250 A Urine RBC 8 H Urine WBC > 182 H Urine Bacteria Few A Hyaline Casts 83 H 04/13/21 04/13/21 04/13/21 18:58 18:58 18:35 WBC 11.7 H RBC 3.63 L Hgb Hct 38.5 L MCV 106.1 H MCH 38.0 H Plt Count 60 L MPV 11.8 H Neut % (Auto) 88.6 H Lymph % (Auto) 2.2 L [place] % (Auto) Lymph # (Auto) 0.26 L [place] # (Auto) 1.04 H Absolute Neutrophils 10.36 H VBG Lactic Acid Sodium 129 L Potassium Chloride 92 L BUN 46 H Creatinine 2.0 H POC Creatinine 1.8 H Glucose 149 H Calcium 8.0 L Phosphorus Direct Bilirubin GGT AST 275 H ALT 108 H Alkaline Phosphatase Lactate Dehydrogenase Total Creatine Kinase 5881 H Troponin T Albumin 2.6 L Globulin 4.0 H Albumin/Globulin Ratio 0.6 L Urine Appearance Urine Protein Urine Occult Blood Ur Leukocyte Esterase Urine RBC Urine WBC Urine Bacteria Hyaline Casts Meds: Medications Acetaminophen (Acetaminophen 325 Mg Tablet) 650 mg PO Q6HP PRN; Protocol PRN Reason: Per Pain Protocol/Fever > 101 Last Admin: 04/13/21 23:12 Dose: 650 mg Documented by: Albuterol/Ipratropium (Ipratropium/Albuterol 3 Ml Ampul.Neb) 3 ml NEB Q6HP PRN PRN Reason: Dyspnea Carbamazepine (Carbamazepine 200 Mg Tablet) 100 mg PO BID [facility] Last Admin: 04/15/21 08:19 Dose: 100 mg Documented by: Ceftriaxone Sodium (Ceftriaxone 1 Gm Vial) 1 gm IV Q24H [facility] Last Admin: 04/15/21 08:19 Dose: 1 gm Documented by: Folic Acid (Folic Acid 1 Mg Tablet) 1 mg PO DAILY [facility] Last Admin: 04/15/21 08:19 Dose: 1 mg Documented by: Sodium Chloride (Sodium Chloride 0.9%) 1,000 mls @ 150 mls/hr IV .Q6H40M [facility] Last Admin: 04/15/21 07:40 Dose: 150 mls/hr Documented by: Azithromycin 500 mg/ Dextrose 250 mls @ 250 mls/hr IV Q24H [facility]; Protocol Stop: 04/16/21 10:59 Last Infusion: 04/15/21 10:34 Dose: Infused Documented by: Acetaminophen (Ofirmev) 650 mg in 65 mls @ 130 mls/hr IV Q6HP PRN; Protocol PRN Reason: PRN Fever> 100.4 Last Infusion: 04/15/21 12:24 Dose: Infused Documented by: Vancomycin HCl 1,000 mg/ (Sodium Chloride) 250 mls @ 250 mls/hr IV Q12H [facility] Last Infusion: 04/15/21 09:45 Dose: Infused Documented by: Potassium Chloride 40 meq/ (Dextrose) 520 mls @ 130 mls/hr IV ONCE ONE Stop: 04/15/21 14:59 Last Admin: 04/15/21 11:06 Dose: 130 mls/hr Documented by: Iron Carb/Multivit/Beadle/Folic Acid (Multivit,Ther Iron,Ca,Fa & Min 1 Tablet) 1 tab PO DAILY [facility] Last Admin: 04/15/21 12:28 Dose: Not Given Documented by: Levothyroxine Sodium (Levothyroxine 25 Mcg Tablet) 25 mcg PO QAMAC [facility] Last Admin: 04/15/21 07:34 Dose: 25 mcg Documented by: Loperamide HCl (Loperamide 2 Mg Capsule) 2 mg PO PRN PRN PRN Reason: Diarrhea Lorazepam (Lorazepam 2 Mg/Ml Vial) 0 mg IV Q4HP PRN; Protocol PRN Reason: Alcohol Withdrawal Last Admin: 04/14/21 17:43 Dose: 2 mg Documented by: Ondansetron HCl (Ondansetron 4 Mg Odt Tablet) 4 mg SL Q6HP PRN PRN Reason: Nausea And Vomiting Ondansetron HCl (Ondansetron 4 Mg/2 Ml Vial) 4 mg IV Q6HP PRN PRN Reason: Nausea And Vomiting Pantoprazole Sodium (Pantoprazole 40 Mg Tablet) [facility] [address] [facility] Last Admin: 04/15/21 07:34 Dose: 40 mg Documented by: Pneumococcal Polyvalent Vaccine (Pneumococcal 23-Estrella P-Sac Vac 0.5 Ml Syringe) 0.5 ml IM .ONCE ONE Stop: 04/16/21 10:01 Potassium Chloride (Potassium Chloride 20 Meq Tablet) 40 meq PO UD PRN PRN Reason: Potssium is 3-3.5 Senna (Sennosides 1 Tablet) 2 tab PO HSP PRN PRN Reason: Constipation Sodium Chloride (0.9 % Sodium Chloride 10 Ml Syringe) 10 ml IV Q8 [facility] Last Admin: 04/15/21 12:57 Dose: 10 ml Documented by: Thiamine HCl (Thiamine 100 Mg Tablet) 100 mg PO QDAY [facility] Last Admin: 04/15/21 12:29 Dose: Not Given Documented by: Vancomycin HCl (Vancomycin Per Pharmacy) 1 order IV UD [facility]; Protocol A/P Narrative A/P Narrative: A: *Severe sepsis: 2/2 PNA/UTI *Bacteremia (GPC): -echo good EF, no vegetations, moder /AI *LLL PNA: May represent community-acquired pneumonia -Though on left side, could also be aspiration (apparently patient was laying on left side on the floor) *UTI(Staph Aureua): -Suspect also source of sepsis *ESTELA on ?CKD: -Suspect this may be multifactorial from sepsis/dehydration/volume depletion; Post renal causes may also be contributing -Improved to 1.4 after fluids and Lima catheter placement *Bladder outlet obstruction and urinary retention: -Significantly distended bladder, with bladder scan showing >999 mL urine -Catheter placed, with significant return of urine *Rhabdomyolysis: Moderate CK 5881 at admission, improving -Likely compression injury of muscles from lying on concrete floor for 2 days -Less likely because of renal failure at this level (usually when CK a pproaches 10,000) *Dehydration: -Elevated BUN, hyaline casts on bladder scan consistent with dehydration -Have been laying on the floor of his workshop for 2 days, unclear if he had had anything to drink during that time. *Alcohol abuse and withdrawal: -Per history, patient drinks 2 bottles of wine a day. 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 -Was able to tell me that he had been to rehabilitation before -Suspect part of his tachycardia and confusion is related to withdrawal in addition to sepsis -Improved after lorazepam per CIWA protocol *Abnormal liver enzymes: Hepatocellular pattern, Likely related to alcohol use, Fatty findings on ultrasound, no biliary disease *Abnormal troponin: Suspect demand perfusion mismatch, not ACS *Thrombocytopenia: May be 2/2 sepsis, though may also be effects of chronic alcohol consumption *Hyponatremia: Suspect secondary to volume depletion and dehydration. resolved *Hypothyroidism: On levothyroxine *Partial complex seizures: On carbamazepine -Patient could not describe what types of seizures he experiences Plan: Continue with ceftriaxone and azithromycin to cover pneumonia and UTI Continue vancomycin for gram-positive cocci in clusters pending final/repeat BC Continue CIWA protocol Continue Lima catheter for urinary retention Continue to follow intake and output Follow platelets Follow sodium with fluid resuscitation IV fluids for rhabdomyolysis, follow CK Seizure precautions Continue levothyroxine and carbamazepine PT/OT evaluations ppx: SCDs for DVT prophylaxis, holding enoxaparin in the face of thrombocytop enia Time Spent With Patient Time: Total time spent is greater than 50% in coordination of care (as documented) at patient's floor/unit and/or counseling patient: QUALITY VTE Deep Vein Thrombosis/Pulmonary Embolism Present on Admission: No
[2021-04-15] MEDS: LORazepam 2 MG/ML VIAL IV PRN ×2 (16:46→20:23)
[2021-04-15] MEDS ORDERED: SENNOSIDES 1 TABLET PO PRN (21:00)
[2021-04-16] MEDS: ACETAMINOPHEN 650 MG/65 ML BAG IV PRN ×4 (02:04→22:02)
[2021-04-16] MEDS: LORazepam 2 MG/ML VIAL IV PRN (02:15)
[2021-04-16] MEDS: 0.9 % SODIUM CHLORIDE 1,000 ML IV SCH (04:48)
[2021-04-16] MEDS: 0.9 % SODIUM CHLORIDE 10 ML SYRINGE IV SCH ×3 (05:15→20:48)
[2021-04-16] MEDS: LEVOTHYROXINE 25 MCG TABLET PO SCH (07:16)
[2021-04-16] MEDS: PANTOPRAZOLE 40 MG TABLET PO SCH (07:16)
[2021-04-16 07:27] LABS: Basophils # (Auto) 0.04 K/mcL (0.00-0.20); Basophils % (Auto) 0.4 % (0.0-2.0); Eosinophils # (Auto) 0.04 K/mcL (0.00-0.70); Eosinophils % (Auto) 0.4 % (0.0-7.0); Hematocrit 36.4 % (41.0-55.0); Hemoglobin 12.6 g/dL (13.5-16.5); Lymphocytes # (Auto) 0.89 K/mcL (1.50-4.80); Lymphocytes % (Auto) 7.9 % (15.0-49.0); Mean Cell Volume 109.3 fL (80.0-100.0); Mean Corpuscular HGB Conc 34.6 g/dL (31.0-36.0); Mean Platelet Volume 12.4 fL (7.4-10.4); Monocytes # (Auto) 1.27 K/mcL (0.10-0.90); Monocytes % (Auto) 11.2 % (1.0-12.0); Platelet Count 77 K/mcL (140-440); RBC 3.33 M/mcL (4.50-5.90); Red Cell Distribution Width 13.2 % (11.5-14.5); WBC 11.3 K/mcL (4.5-11.0)
[2021-04-16] MEDS ORDERED: cloNIDine HCL 0.1 MG TABLET PO PRN (07:39)
[2021-04-16 07:41] LABS: ALT/SGPT 99 U/L (<40); AST/SGOT 128 U/L (<40); Albumin 2.2 gm/dL (3.2-5.2); Albumin/Globulin Ratio 0.6 (1.0-2.3); Alkaline Phosphatase 110 U/L (39-117); Bilirubin,Direct 0.7 mg/dL (<0.3); Bilirubin,Total 1.2 mg/dL (0.1-1.0); Blood Urea Nitrogen 41 mg/dL (8-23); Calcium 8.1 mg/dL (8.6-10.4); Carbon Dioxide 23 mmol/L (22-30); Chloride 111 mmol/L (96-108); Globulin 3.9 gm/dL (2.2-3.7); Glomerular Filtration Rate 66; Glucose 121 mg/dL (70-105); Lactate Dehydrogenase 442 U/L (135-225); Phosphorous 3.1 mg/dL (2.5-4.5); Triglycerides 124 mg/dL (<150); Uric Acid 7.8 mg/dL (2.5-8.0)
[2021-04-16] MEDS ORDERED: cloNIDine HCL 0.1 MG TABLET PO SCH (07:45)
--- NOTE | 2021-04-16 07:48 | Internal Med Progress Note ---
SUBJECTIVE Subjective Patient information: Note initiated : 04/16/21 at 7:37 am Service Date, if different from initiated Date: [] Patient: Fahad Jimenez 75 y/o M admitted on 04/13/21 for fall. Chief Complaint: [] Interval history: Mr. Jimenez is a 75 year old M with a history of partial complex seizures, hypothyroidism, alcohol abuse who presents the ED via EMS after being down on the floor of his workshop for 2 days. History is obtained speaking with Dr. Ramirez in the ED, reviewing records and limited history from the patient who is quite confused. Per report from his , he drinks 2 bottles of wine a day. At one point of my interview, he does tell me that he has not drank alcohol in 3 days. Apparently the patient has sleep in the back patio in the warm weather. He has been doing that this week. 2 days ago patient became weak in his arms and legs. Because of the sun and heat, he crawled into his covered workshop and lay on the concrete floor since then. Does not appear he has had much to eat or drink in that timeframe. He is quite vague on how long he had been there. His was concerned and called EMS today. Patient is unable to elaborate further on what is passed in the last 2 days. Upon arrival by EMS temperatures febrile to 102, pulse was in the 120s. He received IV fluids. His oxygen saturations were 89% in the field and he was tachypneic. Upon arrival in the ED, patient remained tachycardic at 122 blood pressure is 163/95 respiratory rate was 29. He received 2 further liters of IV fluids in the ED (3 total including EMS). Evaluation revealed white count of 11,000, thrombocytopenia at 64,000, hyponatremia 129. BUN is elevated at 46 and creatinine 2.0, with no known history of renal disease per his . Lactate is elevated 2.1. Troponin mildly abnormal at 0.04 and CPK is in the [address] scan of the head showed old chronic changes. Chest x-ray concerning for left lower lobe infiltrate. Patient is being admitted for treatment of severe sepsis associated with pneumonia. Subsequent to arriving on the floor, urine analysis returns showing significant pyuria and bacteriuria, thus the patient is being treated for sepsis from both pulmonary and urinary source. fter admission yesterday, the patient became more more confused, eventually moved to PCU status. Treated with CIWA protocol for alcohol withdrawal. This morning he is more alert and clearer. His is bedside. She explains that he had refused when she had attempted to call EMS earlier. He had been on his left side for about 2 days. She did bring him some food and fluids to drink. He apparently drinks regularly and consistently. Lima catheter placed yesterday evening for urinary retention. Labs show a white count of 11,000, unchanged. This evening at about 24 hours of incubation, 4/4 bottles of admit blood cultures are positive for gram-positive cocci in clusters. 8/3awake, conversant this morning. Is having trouble swallowing. Is having difficulty self-feeding. Speech evaluation pending. Liver enzymes elevated and about the same, and hepatocellular pattern. Troponin 0 0.08 this morning, was 0.04 at admission, no chest pain. Lima catheter remains in place, still very weak. 8/4 Patient given Ativan for elevated CIWA last night. Patient has no new complaints this morning. Review of Systems: denies headache/fever/chills/nausea/vomiting/chest or abdominal pain/cough/dy spnea/diarrhea. Otherwise see above. Constitutional Vitals: Vital Signs Temp Pulse Resp BP Pulse Ox 100.2 F H 112 H 34 H 153/72 94 04/16/21 07:00 04/16/21 07:00 04/16/21 07:00 04/16/21 06:01 04/16/21 07:00 Period Temp Pulse Resp BP Sys/Reno Pulse Ox Last 24 Hr 99.3 F-102.1 F 98-139 16-43 108-182/63-158 88-97 Intake and Output 04/15/21 04/16/21 04/16/21 21:59 05:59 13:59 Intake Total 1835 1222 Output Total 1700 3125 Balance 135 -1903 Weight 98.067 kg Intake & Output: Intake & Output 04/15/21 04/16/21 04/16/21 21:59 05:59 13:59 Intake Total 1835 1222 Output Total 1700 3125 Balance 135 -1903 Weight 98.067 kg Intake: IV 1835 1022 Sodium Chloride 0.9% 1,000 ml @ 1000 957 150 mls/hr IV .Q6H40M [facility] Rx#: [id number] Potassium Chloride 40 Meq In 520 Dextrose 5% in Water 500 ml @ 130 mls/hr IV ONCE ONE Rx#: [id number] Vancomycin 1,000 mg In Sodium 250 Chloride 0.9% 250 ml @ 250 mls/ hr IV Q12H [facility] Rx#:[id number] Oral 200 Output: Urine Catheter Amount 1700 3125 Other: Urine Appearance Sediment Uretheral (Lima) Sediment Urine Color Dark Yellow Uretheral (Lima) Dark Yellow Exam: General: Alert, Awake, No acute Distress Eyes/N/T: EOMI, Head/Neck: neck supple, CV: RRR, No murmurs, Pulm: mild rales b/l, no wheezing/rhonchi/rales Abd: soft, nontender, +BS x4 Ext: no clubbing/cyanosis/edema Neuro: Alert, no focal deficits, moves all extremities, Skin: warm/dry OBJ DATA Labs CBC & Chem 7: 04/16/21 05:19 04/16/21 05:19 Labs: Abnormal Lab Results 04/16/21 04/15/21 04/15/21 05:19 05:10 05:10 WBC 11.3 H RBC 3.33 L Hgb 12.6 L Hct 36.4 L MCV 109.3 H MCH 37.8 H Plt Count 77 L MPV 12.4 H Neut % (Auto) 80.1 H Lymph % (Auto) 7.9 L Troup % (Auto) Lymph # (Auto) 0.89 L Troup # (Auto) 1.27 H Absolute Neutrophils 9.09 H VBG Lactic Acid Sodium Potassium 3.2 L Chloride BUN 48 H Creatinine 1.4 H POC Creatinine Glucose 109 H Calcium 8.1 L Phosphorus Direct Bilirubin 0.6 H GGT 368 H AST 260 H ALT 120 H Alkaline Phosphatase 118 H Lactate Dehydrogenase 462 H Total Creatine Kinase Troponin T 0.08 H* Albumin 2.2 L Globulin Albumin/Globulin Ratio 0.6 L Urine Appearance Urine Protein Urine Occult Blood Ur Leukocyte Esterase Urine RBC Urine WBC Urine Bacteria Hyaline Casts 04/15/21 04/15/21 04/14/21 05:10 05:09 05:15 WBC 11.5 H RBC 3.40 L Hgb 12.9 L Hct 36.4 L MCV 107.1 H MCH 37.9 H Plt Count 65 L MPV 12.6 H Neut % (Auto) Lymph % (Auto) 7.3 L Troup % (Auto) 14.9 H Lymph # (Auto) 0.84 L Troup # (Auto) 1.72 H Absolute Neutrophils 8.90 H VBG Lactic Acid Sodium Potassium Chloride BUN 49 H Creatinine 1.8 H POC Creatinine Glucose 135 H Calcium 7.9 L Phosphorus 4.7 H Direct Bilirubin 0.4 H GGT 272 H AST 275 H ALT 102 H Alkaline Phosphatase Lactate Dehydrogenase 530 H Total Creatine Kinase 2798 H Troponin T Albumin 2.4 L Globulin Albumin/Globulin Ratio 0.6 L Urine Appearance Urine Protein Urine Occult Blood Ur Leukocyte Esterase Urine RBC Urine WBC Urine Bacteria Hyaline Casts 04/14/21 04/13/21 04/13/21 05:15 20:26 18:58 WBC 11.7 H RBC 3.52 L Hgb 13.4 L Hct 38.6 L MCV 109.7 H MCH 38.1 H Plt Count 62 L MPV 11.8 H Neut % (Auto) 81.0 H Lymph % (Auto) 4.1 L Troup % (Auto) 14.5 H Lymph # (Auto) 0.48 L Troup # (Auto) 1.69 H Absolute Neutrophils 9.48 H VBG Lactic Acid Sodium Potassium Chloride BUN Creatinine POC Creatinine Glucose Calcium Phosphorus Direct Bilirubin GGT AST ALT Alkaline Phosphatase Lactate Dehydrogenase Total Creatine Kinase Troponin T 0.04 H* Albumin Globulin Albumin/Globulin Ratio Urine Appearance Turbid A Urine Protein 100 A Urine Occult Blood >=1.0 A Ur Leukocyte Esterase 250 A Urine RBC 8 H Urine WBC > 182 H Urine Bacteria Few A Hyaline Casts 83 H 04/13/21 04/13/21 04/13/21 18:58 18:58 18:58 WBC 11.7 H RBC 3.63 L Hgb Hct 38.5 L MCV 106.1 H MCH 38.0 H Plt Count 60 L MPV 11.8 H Neut % (Auto) 88.6 H Lymph % (Auto) 2.2 L Troup % (Auto) Lymph # (Auto) 0.26 L Troup # (Auto) 1.04 H Absolute Neutrophils 10.36 H VBG Lactic Acid 2.1 H Sodium 129 L Potassium Chloride 92 L BUN 46 H Creatinine 2.0 H POC Creatinine 1.8 H Glucose 149 H Calcium 8.0 L Phosphorus Direct Bilirubin GGT AST 275 H ALT 108 H Alkaline Phosphatase Lactate Dehydrogenase Total Creatine Kinase Troponin T Albumin 2.6 L Globulin 4.0 H Albumin/Globulin Ratio 0.6 L Urine Appearance Urine Protein Urine Occult Blood Ur Leukocyte Esterase Urine RBC Urine WBC Urine Bacteria Hyaline Casts 04/13/21 18:35 WBC RBC Hgb Hct MCV MCH Plt Count MPV Neut % (Auto) Lymph % (Auto) Troup % (Auto) Lymph # (Auto) Troup # (Auto) Absolute Neutrophils VBG Lactic Acid Sodium Potassium Chloride BUN Creatinine POC Creatinine Glucose Calcium Phosphorus Direct Bilirubin GGT AST ALT Alkaline Phosphatase Lactate Dehydrogenase Total Creatine Kinase 5881 H Troponin T Albumin Globulin Albumin/Globulin Ratio Urine Appearance Urine Protein Urine Occult Blood Ur Leukocyte Esterase Urine RBC Urine WBC Urine Bacteria Hyaline Casts Meds: Medications Acetaminophen (Acetaminophen 325 Mg Tablet) 650 mg PO Q6HP PRN; Protocol PRN Reason: Per Pain Protocol/Fever > 101 Last Admin: 04/13/21 23:12 Dose: 650 mg Documented by: Albuterol/Ipratropium (Ipratropium/Albuterol 3 Ml Ampul.Neb) 3 ml NEB Q6HP PRN PRN Reason: Dyspnea Carbamazepine (Carbamazepine 200 Mg Tablet) 100 mg PO BID [facility] Last Admin: 04/15/21 20:30 Dose: 100 mg Documented by: Ceftriaxone Sodium (Ceftriaxone 1 Gm Vial) 1 gm IV Q24H [facility] Last Admin: 04/15/21 08:19 Dose: 1 gm Documented by: Folic Acid (Folic Acid 1 Mg Tablet) 1 mg PO DAILY [facility] Last Admin: 04/15/21 08:19 Dose: 1 mg Documented by: Sodium Chloride (Sodium Chloride 0.9%) 1,000 mls @ 150 mls/hr IV .Q6H40M [facility] Last Admin: 04/16/21 04:48 Dose: 150 mls/hr Documented by: Azithromycin 500 mg/ Dextrose 250 mls @ 250 mls/hr IV Q24H [facility]; Protocol Stop: 04/16/21 10:59 Last Infusion: 04/15/21 10:34 Dose: Infused Documented by: Acetaminophen (Ofirmev) 650 mg in 65 mls @ 130 mls/hr IV Q6HP PRN; Protocol PRN Reason: PRN Fever> 100.4 Last Infusion: 04/16/21 03:16 Dose: Infused Documented by: Vancomycin HCl 1,000 mg/ (Sodium Chloride) 250 mls @ 250 mls/hr IV Q12H [facility] Last Infusion: 04/15/21 20:50 Dose: Infused Documented by: Iron Carb/Multivit/Pari [employer]/Folic Acid (Multivit,Ther Iron,Ca,Fa & Min 1 Tablet) 1 tab PO DAILY [facility] Last Admin: 04/15/21 12:28 Dose: Not Given Documented by: Levothyroxine Sodium (Levothyroxine 25 Mcg Tablet) 25 mcg PO [facility] Last Admin: 04/16/21 07:16 Dose: 25 mcg Documented by: Loperamide HCl (Loperamide 2 Mg Capsule) 2 mg PO PRN PRN PRN Reason: Diarrhea Lorazepam (Lorazepam 2 Mg/Ml Vial) 0 mg IV Q4HP PRN; Protocol PRN Reason: Alcohol Withdrawal Last Admin: 04/16/21 02:15 Dose: 1 mg Documented by: Ondansetron HCl (Ondansetron 4 Mg Odt Tablet) 4 mg SL Q6HP PRN PRN Reason: Nausea And Vomiting Ondansetron HCl (Ondansetron 4 Mg/2 Ml Vial) 4 mg IV Q6HP PRN PRN Reason: Nausea And Vomiting Pantoprazole Sodium (Pantoprazole 40 Mg Tablet) 40 mg PO [facility] Last Admin: 04/16/21 07:16 Dose: 40 mg Documented by: Pneumococcal Polyvalent Vaccine (Pneumococcal 23-Estrella P-Sac Vac 0.5 Ml Syringe) 0.5 ml IM .ONCE ONE Stop: 04/16/21 10:01 Potassium Chloride (Potassium Chloride 20 Meq Tablet) 40 meq PO UD PRN PRN Reason: Potssium is 3-3.5 Senna (Sennosides 1 Tablet) 2 tab PO HSP PRN PRN Reason: Constipation Sodium Chloride (0.9 % Sodium Chloride 10 Ml Syringe) 10 ml IV Q8 [facility] Last Admin: 04/16/21 05:15 Dose: 10 ml Documented by: Thiamine HCl (Thiamine 100 Mg Tablet) 100 mg PO QDAY [facility] Last Admin: 04/15/21 12:29 Dose: Not Given Documented by: Vancomycin HCl (Vancomycin Per Pharmacy) 1 order IV UD [facility]; Protocol A/P Narrative A/P Narrative: A: *Severe sepsis: 2/2 PNA/UTI -fever curve improving *Bacteremia (Staph aureus): -echo good EF, no vegetations, mod /AI *LLL PNA: May represent community-acquired pneumonia -Though on left side, could also be aspiration (apparently patient was laying on left side on the floor) *UTI(Staph Aureua): -Suspect also source of sepsis *ESTELA on ?CKD: Improved after fluids and Lima catheter placement -Suspect this may be multifactorial from sepsis/dehydration/volume depletion; Post renal causes may also be contributing *Bladder outlet obstruction & urinary retention: -Significantly distended bladder, with bladder scan showing >999 mL urine -Catheter placed, with significant return of urine *Rhabdomyolysis: Moderate CK 5881 at admission, improving -Likely compression injury of muscles from lying on concrete floor for 2 days -Less likely because of renal failure at this level (usually when CK approaches 10,000) *Dehydration: resolved -Elevated BUN, hyaline casts on bladder scan consistent with dehydration -Have been laying on the floor of his workshop for 2 days, unclear if he had had anything to drink during that time. *Alcohol abuse & withdrawal: -Per history, patient drinks 2 bottles of wine a day. Provided history as last drink 3-days [employer]. -Was able to tell me that he had been to rehabilitation before -Suspect part of his tachycardia and confusion is related to withdrawal in addition to sepsis -Improved after lorazepam per CIWA protocol *Abnormal liver enzymes: Hepatocellular pattern, Likely related to alcohol use, Fatty findings on ultrasound, no biliary disease *Abnormal troponin: Suspect demand perfusion mismatch, not ACS *Thrombocytopenia: May be 2/2 sepsis, though likely effects of chronic alcohol consumption *Hyponatremia: Suspect secondary to volume depletion and dehydration. resolved *Hypothyroidism: On levothyroxine *Partial complex seizures: On carbamazepine -Patient could not describe what types of seizures he experiences Plan: Continue with ceftriaxone and azithromycin to cover pneumonia and UTI Continue vancomycin for gram-positive cocci in clusters pending final/repeat BC Continue CIWA protocol Continue Lima catheter for urinary retention Continue to follow intake and output Follow platelets IV fluids for rhabdomyolysis, follow CK Seizure precautions Continue levothyroxine and carbamazepine PT/OT evaluations ppx: lovenox (hold for plts<50k) Time Spent With Patient Time: Total time spent is greater than 50% in coordination of care (as documented) at patient's floor/unit and/or counseling patient: QUALITY VTE Deep Vein Thrombosis/Pulmonary Embolism Present on Admission: No
[2021-04-16] MEDS: MULTIVIT,THER IRON,CA,FA & MIN 1 TABLET PO SCH (07:56)
[2021-04-16] MEDS: FOLIC ACID 1 MG TABLET PO SCH (07:56)
[2021-04-16] MEDS: ENOXAPARIN 40 MG/0.4 ML SYRINGE SQ SCH (07:56)
[2021-04-16] MEDS: THIAMINE 100 MG TABLET PO SCH (07:56)
[2021-04-16] MEDS: carBAMazepine 200 MG TABLET PO SCH ×2 (07:59→20:38)
[2021-04-16] MEDS: cefTRIAXone 1 GM VIAL IV SCH (07:59)
[2021-04-16 09:04] LABS: Creatine Kinase 1002 U/L (24-195)
[2021-04-16 09:19] LABS: Folate 5.7 ng/mL (4.2-19.9)
[2021-04-16] MEDS ORDERED: POLYETHYLENE GLYCOL 3350 17 GM PACKET PO PRN (09:50)
[2021-04-16] MEDS ORDERED: SENNOSIDES 1 TABLET PO PRN (09:50)
[2021-04-16] MEDS ORDERED: POLYETHYLENE GLYCOL 3350 17 GM PACKET PO ONE (09:50)
[2021-04-16] MEDS ORDERED: METOPROLOL TARTRATE 25 MG TABLET PO ONE (09:50)
[2021-04-16] MEDS ORDERED: PNEUMOCOCCAL 23-VAL P-SAC VAC 0.5 ML SYRINGE IM ONE (10:00)
[2021-04-16] MEDS: AZITHROMYCIN 500 MG in DEXTROSE 5% IN WATER 250 ML IV SCH (10:12)
[2021-04-16] MEDS: DOCUSATE SODIUM 100 MG CAPSULE PO SCH ×2 (10:41→20:38)
[2021-04-16] MEDS: VANCOMYCIN 1,000 MG in 0.9 % SODIUM CHLORIDE 250 ML IV SCH ×2 (10:41→20:38)
[2021-04-16 11:02] LABS: Neutrophils % (Auto) 80.1 % (38.0-78.0)
[2021-04-16] MEDS ORDERED: 0.9 % SODIUM CHLORIDE 1,000 ML IV SCH (12:00)
[2021-04-17] MEDS: 0.9 % SODIUM CHLORIDE 10 ML SYRINGE IV SCH ×3 (05:26→20:29)
[2021-04-17] MEDS: PANTOPRAZOLE 40 MG TABLET PO SCH (06:59)
[2021-04-17] MEDS: LEVOTHYROXINE 25 MCG TABLET PO SCH (06:59)
[2021-04-17 07:00] LABS: ALT/SGPT 86 U/L (<40); AST/SGOT 83 U/L (<40); Albumin 1.5 gm/dL (3.2-5.2); Albumin/Globulin Ratio 0.3 (1.0-2.3); Alkaline Phosphatase 107 U/L (39-117); Bilirubin,Direct 0.6 mg/dL (<0.3); Bilirubin,Total 1.3 mg/dL (0.1-1.0); Blood Urea Nitrogen 32 mg/dL (8-23); Calcium 8.6 mg/dL (8.6-10.4); Carbon Dioxide 22 mmol/L (22-30); Chloride 115 mmol/L (96-108); Globulin 4.6 gm/dL (2.2-3.7); Glomerular Filtration Rate 74; Glucose 123 mg/dL (70-105); Lactate Dehydrogenase 444 U/L (135-225); Phosphorous 3.2 mg/dL (2.5-4.5); Triglycerides 115 mg/dL (<150); Uric Acid 7.2 mg/dL (2.5-8.0)
--- NOTE | 2021-04-17 08:23 | Internal Med Progress Note ---
SUBJECTIVE Subjective Patient information: Note initiated : 04/17/21 at 8:17 am Service Date, if different from initiated Date: [] Patient: Fahad Jimenez 75 y/o M admitted on 04/13/21 for fall. Chief Complaint: [] Interval history: Mr. Jimenez is a 75 year old M with a history of partial complex seizures, hypothyroidism, alcohol abuse who presents the ED via EMS after being down on the floor of his workshop for 2 days. History is obtained speaking with Dr. Ramirez in the ED, reviewing records and limited history from the patient who is quite confused. Per report from his , he drinks 2 bottles of wine a day. At one point of my interview, he does tell me that he has not drank alcohol in 3 days. Apparently the patient has sleep in the back patio in the warm weather. He has been doing that this week. 2 days ago patient became weak in his arms and legs. Because of the sun and heat, he crawled into his covered workshop and lay on the concrete floor since then. Does not appear he has had much to eat or drink in that timeframe. He is quite vague on how long he had been there. His was concerned and called EMS today. Patient is unable to elaborate further on what is passed in the last 2 days. Upon arrival by EMS temperatures febrile to 102, pulse was in the 120s. He received IV fluids. His oxygen saturations were 89% in the field and he was tachypneic. Upon arrival in the ED, patient remained tachycardic at 122 blood pressure is 163/95 respiratory rate was 29. He received 2 further liters of IV fluids in the ED (3 total including EMS). Evaluation revealed white count of 11,000, thrombocytopenia at 64,000, hyponatremia 129. BUN is elevated at 46 and creatinine 2.0, with no known history of renal disease per his . Lactate is elevated 2.1. Troponin mildly abnormal at 0.04 and CPK is in the [address] scan of the head showed old chronic changes. Chest x-ray concerning for left lower lobe infiltrate. Patient is being admitted for treatment of severe sepsis associated with pneumonia. Subsequent to arriving on the floor, urine analysis returns showing significant pyuria and bacteriuria, thus the patient is being treated for sepsis from both pulmonary and urinary source. fter admission yesterday, the patient became more more confused, eventually moved to PCU status. Treated with CIWA protocol for alcohol withdrawal. This morning he is more alert and clearer. His is bedside. She explains that he had refused when she had attempted to call EMS earlier. He had been on his left side for about 2 days. She did bring him some food and fluids to drink. He apparently drinks regularly and consistently. Lima catheter placed yesterday evening for urinary retention. Labs show a white count of 11,000, unchanged. This evening at about 24 hours of incubation, 4/4 bottles of admit blood cultures are positive for gram-positive cocci in clusters. 8/3awake, conversant this morning. Is having trouble swallowing. Is having difficulty self-feeding. Speech evaluation pending. Liver enzymes elevated and about the same, and hepatocellular pattern. Troponin 0 0.08 this morning, was 0.04 at admission, no chest pain. Lima catheter remains in place, still very weak. 8 Patient given Ativan for elevated CIWA last night. Patient has no new complaints this morning. 04/17 Required less Ativan last night. Patient states he is feeling better today. No new complaints. Fever curve slowly improving. Mildly elevated sodium today. We will give D5 water. Review of Systems: denies headache/fever/chills/nausea/vomiting/chest or abdominal pain/cough/dyspnea/diarrhea. Otherwise see above. Constitutional Vitals: Vital Signs Temp Pulse Resp BP Pulse Ox 100.4 F H 109 H 23 H 160/83 93 04/17/21 07:01 04/17/21 07:01 04/17/21 07:01 04/17/21 07:01 04/17/21 07:01 Period Temp Pulse Resp BP Sys/[place] Pulse Ox Last 24 Hr 100.2 F-101.6 F 94-136 15-32 122-176/67-111 90-100 Intake and Output 04/16/21 04/17/21 04/17/21 21:59 05:59 13:59 Intake Total 485 2014 Output Total 2575 1700 Balance -2090 315 Weight 94.982 kg Intake & Output: Intake & Output 04/16/21 04/17/21 04/17/21 21:59 05:59 13:59 Intake Total 485 2014 Output Total 2575 1700 Balance -2090 315 Weight 94.982 kg Intake: IV 65 1315 Sodium Chloride 0.9% 1,000 ml @ 1000 75 mls/hr IV .[id number] [facility] Rx#: [id number] Vancomycin 1,000 mg In Sodium 250 Chloride 0.9% 250 ml @ 250 mls/ hr IV Q12H [facility] Rx#:[id number] Oral 420 700 Output: Urine Catheter Amount 2575 Void Amount 1700 Other: Meal Dinner Percent of Meal Consumed 75% Urine Appearance Sediment Urine Color Light Ellie Dark Yellow Urine Odor Normal # Bowel Movements 0 Exam: General: Alert, Awake, No acute Distress Eyes/N/T: EOMI, Head/Neck: neck supple, CV: RRR, No murmurs, Pulm: mild rales b/l, no wheezing/rhonchi/rales Abd: soft, nontender, +BS x4 Ext: no clubbing/cyanosis/edema Neuro: Alert, no focal deficits, moves all extremities, Skin: warm/dry OBJ DATA Labs CBC & Chem 7: 04/17/21 05:04 04/17/21 05:04 Labs: Abnormal Lab Results 04/17/21 04/16/21 04/16/21 05:04 07:59 05:19 WBC RBC Hgb Hct MCV MCH Plt Count MPV Neut % (Auto) Lymph % (Auto) Bee % (Auto) Lymph # (Auto) Bee # (Auto) Absolute Neutrophils Sodium 147 H Potassium Chloride 115 H 111 H BUN 32 H 41 H Creatinine Glucose 123 H 121 H Calcium 8.1 L Total Bilirubin 1.3 H 1.2 H Direct Bilirubin 0.6 H 0.7 H GGT 314 H 340 H AST 83 H 128 H ALT 86 H 99 H Alkaline Phosphatase Lactate Dehydrogenase 444 H 442 H Total Creatine Kinase 1002 H Troponin T Albumin 1.5 L 2.2 L Globulin 4.6 H 3.9 H Albumin/Globulin Ratio 0.3 L 0.6 L 04/16/21 04/15/21 04/15/21 05:19 05:10 05:10 WBC 11.3 H RBC 3.33 L Hgb 12.6 L Hct 36.4 L MCV 109.3 H MCH 37.8 H Plt Count 77 L MPV 12.4 H Neut % (Auto) 80.1 H Lymph % (Auto) 7.9 L Bee % (Auto) Lymph # (Auto) 0.89 L Bee # (Auto) 1.27 H Absolute Neutrophils 9.09 H Sodium Potassium 3.2 L Chloride BUN 48 H Creatinine 1.4 H Glucose 109 H Calcium 8.1 L Total Bilirubin Direct Bilirubin 0.6 H GGT 368 H AST 260 H ALT 120 H Alkaline Phosphatase 118 H Lactate Dehydrogenase 462 H Total Creatine Kinase Troponin T 0.08 H* Albumin 2.2 L Globulin Albumin/Globulin Ratio 0.6 L 04/15/21 04/15/21 05:10 05:09 WBC 11.5 H RBC 3.40 L Hgb 12.9 L Hct 36.4 L MCV 107.1 H MCH 37.9 H Plt Count 65 L MPV 12.6 H Neut % (Auto) Lymph % (Auto) 7.3 L Bee % (Auto) 14.9 H Lymph # (Auto) 0.84 L Bee # (Auto) 1.72 H Absolute Neutrophils 8.90 H Sodium Potassium Chloride BUN Creatinine Glucose Calcium Total Bilirubin Direct Bilirubin GGT AST ALT Alkaline Phosphatase Lactate Dehydrogenase Total Creatine Kinase 2798 H Troponin T Albumin Globulin Albumin/Globulin Ratio Meds: Medications Acetaminophen (Acetaminophen 325 Mg Tablet) 650 mg PO Q6HP PRN; Protocol PRN Reason: Per Pain Protocol/Fever > 101 Last Admin: 04/13/21 23:12 Dose: 650 mg Documented by: Albuterol/Ipratropium (Ipratropium/Albuterol 3 Ml Ampul.Neb) 3 ml NEB Q6HP PRN PRN Reason: Dyspnea Carbamazepine (Carbamazepine 200 Mg Tablet) 100 mg PO BID [facility] Last Admin: 04/16/21 20:38 Dose: 100 mg Documented by: Ceftriaxone Sodium (Ceftriaxone 1 Gm Vial) 1 gm IV Q24H [facility] Last Admin: 04/16/21 07:59 Dose: 1 gm Documented by: Clonidine HCl (Clonidine Hcl 0.1 Mg Tablet) 0.1 mg PO Q4HP PRN PRN Reason: ALC Last Admin: 04/17/21 06:58 Dose: 0.1 mg Documented by: Docusate Sodium (Docusate Sodium 100 Mg Capsule) 100 mg PO BID [facility] Last Admin: 04/16/21 20:38 Dose: 100 mg Documented by: Enoxaparin Sodium (Enoxaparin 40 Mg/0.4 Ml Syringe) 40 mg SQ DAILY [facility] Last Admin: 04/16/21 07:56 Dose: 40 mg Documented by: Folic Acid (Folic Acid 1 Mg Tablet) 1 mg PO DAILY [facility] Last Admin: 04/16/21 07:56 Dose: 1 mg Documented by: Acetaminophen (Ofirmev) 650 mg in 65 mls @ 130 mls/hr IV Q6HP PRN; Protocol PRN Reason: PRN Fever> 100.4 Last Infusion: 04/16/21 23:12 Dose: Infused Documented by: Vancomycin HCl 1,000 mg/ (Sodium Chloride) 250 mls @ 250 mls/hr IV Q12H [facility] Last Infusion: 04/16/21 22:04 Dose: Infused Documented by: Iron Carb/Multivit/[place]/Folic Acid (Multivit,Ther Iron,Ca,Fa & Min 1 Tablet) 1 tab PO DAILY [facility] Last Admin: 04/16/21 07:56 Dose: 1 tab Documented by: Levothyroxine Sodium (Levothyroxine 25 Mcg Tablet) 25 mcg PO [facility] Last Admin: 04/17/21 06:59 Dose: 25 mcg Documented by: Loperamide HCl (Loperamide 2 Mg Capsule) 2 mg PO PRN PRN PRN Reason: Diarrhea Lorazepam (Lorazepam 2 Mg/Ml Vial) 0 mg IV Q4HP PRN; Protocol PRN Reason: Alcohol Withdrawal Last Admin: 04/16/21 02:15 Dose: 1 mg Documented by: Ondansetron HCl (Ondansetron 4 Mg Odt Tablet) 4 mg SL Q6HP PRN PRN Reason: Nausea And Vomiting Ondansetron HCl (Ondansetron 4 Mg/2 Ml Vial) 4 mg IV Q6HP PRN PRN Reason: Nausea And Vomiting Pantoprazole Sodium (Pantoprazole 40 Mg Tablet) 40 mg PO [facility] Last Admin: 04/17/21 06:59 Dose: 40 mg Documented by: Pneumococcal Polyvalent Vaccine (Pneumococcal 23-Estrella P-Sac Vac 0.5 Ml Syringe) 0.5 ml IM .ONCE ONE Stop: 04/18/21 10:01 Polyethylene Glycol (Polyethylene Glycol 3350 17 Gm Packet) 17 gm PO DAILYP PRN PRN Reason: Constipation Potassium Chloride (Potassium Chloride 20 Meq Tablet) 40 meq PO UD PRN PRN Reason: Potssium is 3-3.5 Senna (Sennosides 1 Tablet) 2 tab PO HSP PRN PRN Reason: Constipation Senna (Sennosides 1 Tablet) 1 tab PO DAILYP PRN PRN Reason: constipation Sodium Chloride (0.9 % Sodium Chloride 10 Ml Syringe) 10 ml IV Q8 [facility] Last Admin: 04/17/21 05:26 Dose: Not Given Documented by: Thiamine HCl (Thiamine 100 Mg Tablet) 100 mg PO QDAY [facility] Last Admin: 04/16/21 07:56 Dose: 100 mg Documented by: Vancomycin HCl (Vancomycin Per Pharmacy) 1 order IV UD [facility]; Protocol A/P Narrative A/P Narrative: A: *Severe sepsis: 2/2 PNA/UTI -fever curve slowly improving *Bacteremia (Staph aureus, likely MRSA): -echo good EF, no vegetations, mod /AI -repeat BC neg so far *LLL PNA: May represent community-acquired pneumonia -Though on left side, could also be aspiration (apparently patient was laying on left side on the floor) -on room air *UTI (MRSA): -Suspect also source of sepsis *ESTELA on 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: Improved after fluids and Lima catheter placement -Suspect this may be multifactorial from sepsis/dehydration/volume depletion; Post renal causes may also be contributing *Bladder outlet obstruction & urinary retention: -Significantly distended bladder, with bladder scan showing >999 mL urine -Catheter placed, with significant return of urine *Rhabdomyolysis: Moderate CK 5881 at admission, improved -Likely compression injury of muscles from lying on concrete floor for 2 days -Less likely because of renal failure at this level (usually when CK approaches 10,000) *Dehydration: resolved -Elevated BUN, hyaline casts on bladder scan consistent with dehydration -Have been laying on the floor of his workshop for 2 days, unclear if he had had anything to drink during that time. *Alcohol abuse & withdrawal: -Per history, patient drinks 2 bottles of wine a day. Provided history as last drink 3-days [employer]. -Was able to tell me that he had been to rehabilitation before -Suspect part of his tachycardia and confusion is related to withdrawal in addition to sepsis *Transaminitis: Hepatocellular pattern, Likely related to alcohol use, Fatty findings on ultrasound, no biliary disease -improved *Abnormal troponin: Suspect demand perfusion mismatch, not ACS *Thrombocytopenia: May be 2/2 sepsis, though likely effects of chronic alcohol consumption *Hyponatremia: Suspect secondary to volume depletion and dehydration. resolved *Hypothyroidism: On levothyroxine *Malnutrition: *Partial complex seizures: On carbamazepine -Patient could not describe what types of seizures he experiences Plan: Continue with ceftriaxone and azithromycin to cover pneumonia and UTI Continue vancomycin for gram-positive cocci in clusters pending final/repeat BC Continue CIWA protocol Continue Lima catheter for urinary retention Continue to follow intake and output Follow platelets -dietary consult Seizure precautions Continue levothyroxine and carbamazepine PT/OT evaluations ppx: lovenox (hold for plts<50k) Time Spent With Patient Time: Total time spent is greater than 50% in coordination of care (as documented) at patient's floor/unit and/or counseling patient: QUALITY VTE Deep Vein Thrombosis/Pulmonary Embolism Present on Admission: No
[2021-04-17 08:26] LABS: Basophils # (Auto) 0.05 K/mcL (0.00-0.20); Basophils % (Auto) 0.4 % (0.0-2.0); Eosinophils # (Auto) 0.08 K/mcL (0.00-0.70); Eosinophils % (Auto) 0.6 % (0.0-7.0); Hematocrit 36.9 % (41.0-55.0); Hemoglobin 12.4 g/dL (13.5-16.5); Lymphocytes # (Auto) 1.15 K/mcL (1.50-4.80); Lymphocytes % (Auto) 8.5 % (15.0-49.0); Mean Cell Volume 111.1 fL (80.0-100.0); Mean Corpuscular HGB Conc 33.6 g/dL (31.0-36.0); Mean Platelet Volume 11.8 fL (7.4-10.4); Monocytes # (Auto) 1.07 K/mcL (0.10-0.90); Monocytes % (Auto) 7.9 % (1.0-12.0); Neutrophils % (Auto) 82.6 % (38.0-78.0); Platelet Count 131 K/mcL (140-440); RBC 3.32 M/mcL (4.50-5.90); Red Cell Distribution Width 13.5 % (11.5-14.5); WBC 13.5 K/mcL (4.5-11.0)
[2021-04-17] MEDS ORDERED: DEXTROSE 5% IN WATER 500 ML IV SCH (08:30)
[2021-04-17] MEDS: ENOXAPARIN 40 MG/0.4 ML SYRINGE SQ SCH (09:19)
[2021-04-17] MEDS: MULTIVIT,THER IRON,CA,FA & MIN 1 TABLET PO SCH (09:20)
[2021-04-17] MEDS: FOLIC ACID 1 MG TABLET PO SCH (09:20)
[2021-04-17] MEDS: DOCUSATE SODIUM 100 MG CAPSULE PO SCH ×2 (09:20→20:28)
[2021-04-17] MEDS: THIAMINE 100 MG TABLET PO SCH (09:20)
[2021-04-17] MEDS: carBAMazepine 200 MG TABLET PO SCH ×2 (09:25→20:28)
[2021-04-17] MEDS: cefTRIAXone 1 GM VIAL IV SCH (09:25)
[2021-04-17] MEDS: VANCOMYCIN 1,000 MG in 0.9 % SODIUM CHLORIDE 250 ML IV SCH (09:29)
[2021-04-17] MEDS: ACETAMINOPHEN 325 MG TABLET PO PRN ×2 (12:23→20:28)
--- NOTE | 2021-04-17 14:39 | Ultrasound Report ---
INDICATION: Right extremity swelling TECHNIQUE: Grayscale and color flow Doppler spectral imaging of the deep venous system in the right upper extremity COMPARISON: None. FINDINGS: Acute occlusive thrombus within the right subclavian vein. Right internal jugular vein, axillary, brachial, cephalic, basilic veins are negative. Forearm veins were not evaluated. IMPRESSION: 1. Acute deep venous thrombosis within the right subclavian vein 2. Otherwise negative examination Interpreted and Authenticated by: Andres Harrington 04/17/21
[2021-04-17] MEDS ORDERED: ENOXAPARIN 60 MG/0.6 ML SYRINGE SQ STA (14:50)
[2021-04-17 15:31] LABS: Blood Urea Nitrogen 35 mg/dL (8-23); Calcium 8.2 mg/dL (8.6-10.4); Carbon Dioxide 25 mmol/L (22-30); Chloride 113 mmol/L (96-108); Glomerular Filtration Rate 74; Glucose 181 mg/dL (70-105)
[2021-04-17] MEDS: DEXTROSE 5% IN WATER 1,000 ML IV SCH (15:50)
[2021-04-17 17:44] LABS: POC Blood Urea Nitrogen 33 mg/dL (6-20); POC CO2 23 mmol/L (22-30); POC Calcium, Ionized 1.18 mmEq/L (1.16-1.32); POC Chloride 111 mEq/L (96-108); POC Creatinine 0.9 mg/dL (0.6-1.2); POC Glucose, Random 161 mg/dL (70-105); POC Hematocrit 34 % (41-55); POC Potassium 3.1 mEql/L (3.3-5.1); POC Sodium 150 mEq/L (133-145)
[2021-04-17 18:24] LABS: Blood Urea Nitrogen 36 mg/dL (8-23); Calcium 8.9 mg/dL (8.6-10.4); Carbon Dioxide 26 mmol/L (22-30); Chloride 112 mmol/L (96-108); Glomerular Filtration Rate 74; Glucose 160 mg/dL (70-105)
[2021-04-17] MEDS ORDERED: POTASSIUM CHLORIDE 20 MEQ in DEXTROSE 5% IN WATER 250 ML IV ONE (19:02)
[2021-04-17] MEDS: VANCOMYCIN 1,000 MG in DEXTROSE 5% IN WATER 250 ML IV SCH (20:30)
[2021-04-17] MEDS ORDERED: ENOXAPARIN 80 MG/0.8 ML SYRINGE SQ SCH (21:00)
[2021-04-17] MEDS ORDERED: POTASSIUM CHLORIDE 20 MEQ/10 ML VIAL IV ONE (21:26)
[2021-04-17] MEDS: LORazepam 2 MG/ML VIAL IV PRN (21:33)
[2021-04-17 23:34] LABS: POC Blood Urea Nitrogen 34 mg/dL (6-20); POC CO2 25 mmol/L (22-30); POC Calcium, Ionized 1.18 mmEq/L (1.16-1.32); POC Chloride 107 mEq/L (96-108); POC Creatinine 0.9 mg/dL (0.6-1.2); POC Glucose, Random 162 mg/dL (70-105); POC Hematocrit 34 % (41-55); POC Potassium 3.6 mEql/L (3.3-5.1); POC Sodium 147 mEq/L (133-145)
[2021-04-18] MEDS: 0.9 % SODIUM CHLORIDE 10 ML SYRINGE IV SCH ×3 (05:34→21:16)
[2021-04-18] MEDS: DEXTROSE 5% IN WATER 1,000 ML IV SCH ×2 (06:03→12:52)
[2021-04-18 07:16] LABS: ALT/SGPT 80 U/L (<40); AST/SGOT 70 U/L (<40); Albumin/Globulin Ratio 0.4 (1.0-2.3); Alkaline Phosphatase 116 U/L (39-117); Bilirubin,Direct 0.6 mg/dL (<0.3); Bilirubin,Total 1.2 mg/dL (0.1-1.0); Blood Urea Nitrogen 29 mg/dL (8-23); Calcium 8.7 mg/dL (8.6-10.4); Carbon Dioxide 25 mmol/L (22-30); Chloride 108 mmol/L (96-108); Globulin 4.5 gm/dL (2.2-3.7); Glomerular Filtration Rate 84; Glucose 122 mg/dL (70-105); Lactate Dehydrogenase 377 U/L (135-225); Phosphorous 3.2 mg/dL (2.5-4.5); Triglycerides 98 mg/dL (<150); Uric Acid 6.4 mg/dL (2.5-8.0)
[2021-04-18 07:18] LABS: Hematocrit 38.6 % (41.0-55.0); Hemoglobin 13.1 g/dL (13.5-16.5); Mean Cell Volume 110.9 fL (80.0-100.0); Mean Corpuscular HGB Conc 33.9 g/dL (31.0-36.0); Mean Platelet Volume 12.1 fL (7.4-10.4); Platelet Count 162 K/mcL (140-440); RBC 3.48 M/mcL (4.50-5.90); Red Cell Distribution Width 13.7 % (11.5-14.5)
[2021-04-18] MEDS ORDERED: METOPROLOL TARTRATE 25 MG TABLET PO ONE (08:14)
--- NOTE | 2021-04-18 08:17 | Internal Med Progress Note ---
SUBJECTIVE Subjective Patient information: Note initiated : 04/18/21 at 8:08 am Service Date, if different from initiated Date: [] Patient: Fahad Jimenez 75 y/o M admitted on 04/13/21 for fall. Chief Complaint: [] Interval history: Mr. Jimenez is a 75 year old M with a history of partial complex seizures, hypothyroidism, alcohol abuse who presents the ED via EMS after being down on the floor of his workshop for 2 days. History is obtained speaking with Dr. Ramirez in the ED, reviewing records and limited history from the patient who is quite confused. Per report from his , he drinks 2 bottles of wine a day. At one point of my interview, he does tell me that he has not drank alcohol in 3 days. Apparently the patient has sleep in the back patio in the warm weather. He has been doing that this week. 2 days ago patient became weak in his arms and legs. Because of the sun and heat, he crawled into his covered workshop and lay on the concrete floor since then. Does not appear he has had much to eat or drink in that timeframe. He is quite vague on how long he had been there. His was concerned and called EMS today. Patient is unable to elaborate further on what is passed in the last 2 days. Upon arrival by EMS temperatures febrile to 102, pulse was in the 120s. He received IV fluids. His oxygen saturations were 89% in the field and he was tachypneic. Upon arrival in the ED, patient remained tachycardic at 122 blood pressure is 163/95 respiratory rate was 29. He received 2 further liters of IV fluids in the ED (3 total including EMS). Evaluation revealed white count of 11,000, thrombocytopenia at 64,000, hyponatremia 129. BUN is elevated at 46 and creatinine 2.0, with no known history of renal disease per his . Lactate is elevated 2.1. Troponin mildly abnormal at 0.04 and CPK is in the [address] scan of the head showed old chronic changes. Chest x-ray concerning for left lower lobe infiltrate. Patient is being admitted for treatment of severe sepsis associated with pneumonia. Subsequent to arriving on the floor, urine analysis returns showing significant pyuria and bacteriuria, thus the patient is being treated for sepsis from both pulmonary and urinary source. 2after admission yesterday, the patient became more more confused, eventually moved to PCU status. Treated with CIWA protocol for alcohol withdrawal. This morning he is more alert and clearer. His is bedside. She explains that he had refused when she had attempted to call EMS earlier. He had been on his left side for about 2 days. She did bring him some food and fluids to drink. He apparently drinks regularly and consistently. Lima catheter placed yesterday evening for urinary retention. Labs show a white count of 11,000, unchanged. This evening at about 24 hours of incubation, 4/4 bottles of admit blood cultures are positive for gram-positive cocci in clusters. 8/3awake, conversant this morning. Is having trouble swallowing. Is having difficulty self-feeding. Speech evaluation pending. Liver enzymes elevated and about the same, and hepatocellular pattern. Troponin 0 0.08 this morning, was 0.04 at admission, no chest pain. Lima catheter remains in place, still very weak. 8 Patient given Ativan for elevated CIWA last night. Patient has no new complaints this morning. 04/17 Required less Ativan last night. Patient states he is feeling better today. No new complaints. Fever curve slowly improving. Mildly elevated sodium today. We will give D5 water. 04/18 Patient seems to be feeling a little bit better today. Diagnosed with subclavian vein thrombosis yesterday. Leukocytosis worsening. still having fevers although better today. Review of Systems: denies headache/fever/chills/nausea/vomiting/chest or abdominal pain/cough/dyspnea/diarrhea. Otherwise see above. Constitutional Vitals: Vital Signs Temp Pulse Resp BP Pulse Ox 99.9 F H 101 H 27 H 139/61 95 04/18/21 06:01 04/18/21 06:01 04/18/21 06:01 04/18/21 06:01 04/18/21 06:01 Period Temp Pulse Resp BP Sys/[place] Pulse Ox Last 24 Hr 99.4 F-101.5 F 78-112 15-36 110-162/58-94 92-96 Intake and Output 04/17/21 04/18/21 04/18/21 21:59 05:59 13:59 Intake Total 980 1810 Output Total 1590 1475 Balance -610 335 Weight 97.795 kg Intake & Output: Intake & Output 04/17/21 04/18/21 04/18/21 21:59 05:59 13:59 Intake Total 980 1810 Output Total 1590 1475 Balance -610 335 Weight 97.795 kg Intake: IV 500 1510 Dextrose 5% in Water 1,000 ml @ 500 1000 125 mls/hr IV .Q8H [facility] Rx#: [id number] Potassium Chloride 20 Meq In 260 Dextrose 5% in Water 250 ml @ 130 mls/hr IV ONCE ONE Rx#: [id number] Vancomycin 1,000 mg In Dextrose 250 5% in Water 250 ml @ 250 mls/ hr IV Q12H [facility] Rx#:[id number] Oral 480 300 Output: Urine Catheter Amount 1590 1475 Other: Meal Dinner Percent of Meal Consumed 50% Feeding Ability Needs Supervision Urine Appearance Sediment Sediment Uretheral (Lima) Sediment Urine Color Dark Yellow Dark Yellow Uretheral (Lima) Dark Yellow Exam: General: Alert, Awake, No acute Distress Eyes/N/T: EOMI, Head/Neck: neck supple, CV: RRR, No murmurs, Pulm: mild rales b/l, no wheezing/rhonchi/rales Abd: soft, distended today, almost tympanic on auscultation Ext: no clubbing/cyanosis/edema Neuro: Alert, no focal deficits, moves all extremities, Skin: warm/dry OBJ DATA Labs CBC & Chem 7: 04/18/21 05:01 04/18/21 05:02 Labs: Abnormal Lab Results 04/18/21 04/18/21 04/17/21 05:02 05:01 23:05 WBC 15.0 H RBC 3.48 L Hgb 13.1 L Hct 38.6 L POC Hct 34 L MCV 110.9 H MCH 37.6 H Plt Count MPV 12.1 H Neut % (Auto) Lymph % (Auto) Lymph # (Auto) Sac # (Auto) Absolute Neutrophils POC Sodium 147 H Sodium 146 H POC Potassium Potassium POC Chloride Chloride POC BUN 34 H BUN 29 H Glucose 122 H POC Glucose 162 H Calcium Total Bilirubin 1.2 H Direct Bilirubin 0.6 H GGT 336 H AST 70 H ALT 80 H Lactate Dehydrogenase 377 H Total Creatine Kinase Albumin 2.0 L Globulin 4.5 H Albumin/Globulin Ratio 0.4 L Prealbumin 04/17/21 04/17/21 04/17/21 17:29 14:28 08:34 WBC RBC Hgb Hct POC Hct 34 L MCV MCH Plt Count MPV Neut % (Auto) Lymph % (Auto) Lymph # (Auto) Sac # (Auto) Absolute Neutrophils POC Sodium 150 H Sodium 147 H 148 H POC Potassium 3.1 L Potassium 3.1 L 3.2 L POC Chloride 111 H Chloride 112 H 113 H POC BUN 33 H BUN 36 H 35 H Glucose 160 H 181 H POC Glucose 161 H Calcium 8.2 L Total Bilirubin Direct Bilirubin GGT AST ALT Lactate Dehydrogenase Total Creatine Kinase Albumin Globulin Albumin/Globulin Ratio Prealbumin 6.0 L 04/17/21 04/17/21 04/16/21 05:04 05:04 07:59 WBC 13.5 H RBC 3.32 L Hgb 12.4 L Hct 36.9 L POC Hct MCV 111.1 H MCH 37.3 H Plt Count 131 L MPV 11.8 H Neut % (Auto) 82.6 H Lymph % (Auto) 8.5 L Lymph # (Auto) 1.15 L Sac # (Auto) 1.07 H Absolute Neutrophils 11.12 H POC Sodium Sodium 147 H POC Potassium Potassium POC Chloride Chloride 115 H POC BUN BUN 32 H Glucose 123 H POC Glucose Calcium Total Bilirubin 1.3 H Direct Bilirubin 0.6 H GGT 314 H AST 83 H ALT 86 H Lactate Dehydrogenase 444 H Total Creatine Kinase 1002 H Albumin 1.5 L Globulin 4.6 H Albumin/Globulin Ratio 0.3 L Prealbumin 04/16/21 04/16/21 05:19 05:19 WBC 11.3 H RBC 3.33 L Hgb 12.6 L Hct 36.4 L POC Hct MCV 109.3 H MCH 37.8 H Plt Count 77 L MPV 12.4 H Neut % (Auto) 80.1 H Lymph % (Auto) 7.9 L Lymph # (Auto) 0.89 L Sac # (Auto) 1.27 H Absolute Neutrophils 9.09 H POC Sodium Sodium POC Potassium Potassium POC Chloride Chloride 111 H POC BUN BUN 41 H Glucose 121 H POC Glucose Calcium 8.1 L Total Bilirubin 1.2 H Direct Bilirubin 0.7 H GGT 340 H AST 128 H ALT 99 H Lactate Dehydrogenase 442 H Total Creatine Kinase Albumin 2.2 L Globulin 3.9 H Albumin/Globulin Ratio 0.6 L Prealbumin Meds: Medications Acetaminophen (Acetaminophen 325 Mg Tablet) 650 mg PO Q6HP PRN; Protocol PRN Reason: Per Pain Protocol/Fever > 101 Last Admin: 04/17/21 20:28 Dose: 650 mg Documented by: Albuterol/Ipratropium (Ipratropium/Albuterol 3 Ml Ampul.Neb) 3 ml NEB Q6HP PRN PRN Reason: Dyspnea Carbamazepine (Carbamazepine 200 Mg Tablet) 100 mg PO BID [facility] Last Admin: 04/17/21 20:28 Dose: 100 mg Documented by: Ceftriaxone Sodium (Ceftriaxone 1 Gm Vial) 1 gm IV Q24H [facility] Last Admin: 04/17/21 09:25 Dose: 1 gm Documented by: Clonidine HCl (Clonidine Hcl 0.1 Mg Tablet) 0.1 mg PO Q4HP PRN PRN Reason: ALC Last Admin: 04/17/21 06:58 Dose: 0.1 mg Documented by: Docusate Sodium (Docusate Sodium 100 Mg Capsule) 100 mg PO BID [facility] Last Admin: 04/17/21 20:28 Dose: 100 mg Documented by: Enoxaparin Sodium (Enoxaparin 80 Mg/0.8 Ml Syringe) 80 mg SQ HS [facility] Last Admin: 04/17/21 20:28 Dose: 80 mg Documented by: Enoxaparin Sodium (Enoxaparin 100 Mg/Ml Syringe) 100 mg SQ DAILY [facility] Folic Acid (Folic Acid 1 Mg Tablet) 1 mg PO DAILY [facility] Last Admin: 04/17/21 09:20 Dose: 1 mg Documented by: Acetaminophen (Ofirmev) 650 mg in 65 mls @ 130 mls/hr IV Q6HP PRN; Protocol PRN Reason: PRN Fever> 100.4 Last Infusion: 04/16/21 23:12 Dose: Infused Documented by: Dextrose (Dextrose 5% In Water) 1,000 mls @ 125 mls/hr IV .Q8H [facility] Last Admin: 04/18/21 06:03 Dose: 125 mls/hr Documented by: Vancomycin HCl 1,000 mg/ (Dextrose) 250 mls @ 250 mls/hr IV Q12H [facility] Last Infusion: 04/18/21 00:33 Dose: Infused Documented by: Iron Carb/Multivit/[place]/Folic Acid (Multivit,Ther Iron,Ca,Fa & Min 1 Tablet) 1 tab PO DAILY [facility] Last Admin: 04/17/21 09:20 Dose: 1 tab Documented by: Levothyroxine Sodium (Levothyroxine 25 Mcg Tablet) [facility] Admin: 04/17/21 06:59 Dose: 25 mcg Documented by: Loperamide HCl (Loperamide 2 Mg Capsule) 2 mg PO PRN PRN PRN Reason: Diarrhea Lorazepam (Lorazepam 2 Mg/Ml Vial) 0 mg IV Q4HP PRN; Protocol PRN Reason: Alcohol Withdrawal Last Admin: 04/17/21 21:33 Dose: 1 mg Documented by: Ondansetron HCl (Ondansetron 4 Mg Odt Tablet) 4 mg SL Q6HP PRN PRN Reason: Nausea And Vomiting Last Admin: 04/17/21 10:51 Dose: 4 mg Documented by: Ondansetron HCl (Ondansetron 4 Mg/2 Ml Vial) 4 mg IV Q6HP PRN PRN Reason: Nausea And Vomiting Pantoprazole Sodium (Pantoprazole 40 Mg Tablet) 40 mg PO [facility] Last Admin: 04/17/21 06:59 Dose: 40 mg Documented by: Pneumococcal Polyvalent Vaccine (Pneumococcal 23-Estrella P-Sac Vac 0.5 Ml Syringe) 0.5 ml IM .ONCE ONE Stop: 04/18/21 10:01 Polyethylene Glycol (Polyethylene Glycol 3350 17 Gm Packet) 17 gm PO DAILYP PRN PRN Reason: Constipation Potassium Chloride (Potassium Chloride 20 Meq Tablet) 40 meq PO UD PRN PRN Reason: Potssium is 3-3.5 Last Admin: 04/17/21 18:44 Dose: 40 meq Documented by: Senna (Sennosides 1 Tablet) 2 tab PO HSP PRN PRN Reason: Constipation Last Admin: 04/17/21 20:28 Dose: 2 tab Documented by: Senna (Sennosides 1 Tablet) 1 tab PO DAILYP PRN PRN Reason: constipation Sodium Chloride (0.9 % Sodium Chloride 10 Ml Syringe) 10 ml IV Q8 [facility] Last Admin: 04/18/21 05:34 Dose: Not Given Documented by: Thiamine HCl (Thiamine 100 Mg Tablet) 100 mg PO QDAY [facility] Last Admin: 04/17/21 09:20 Dose: 100 mg Documented by: Vancomycin HCl (Vancomycin Per Pharmacy) 1 order IV UD [facility]; Protocol A/P Narrative A/P Narrative: A: *Severe sepsis: 2/2 PNA/UTI. 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 compression injury of muscles from lying on concrete floor *Dehydration: resolved, had been laying on the floor of his workshop for 2 days *Alcohol abuse & withdrawal: -Per history, patient drinks 2 bottles of wine a day. Provided history as last drink 3-days [employer]. -Was able to tell me that he had been to rehabilitation before -Suspect part of his tachycardia and confusion is related to withdrawal in ad dition to sepsis *Encephalopathy: 2/2 etoh w/d and very likley superimposed on underlying Dementia *Suspect underlying dementia vs MCI: -CT brain with cerebral atrophy and small vessel dz *Transaminitis: Hepatocellular pattern, Likely related to alcohol use, Fatty findings on ultrasound, no biliary disease -improved *Abnormal troponin: Suspect demand perfusion mismatch, not ACS *Thrombocytopenia: May be 2/2 sepsis, though likely effects of chronic alcohol consumption *Hyponatremia: Suspect secondary to volume depletion and dehydration. resolved *Hypothyroidism: On levothyroxine *protein-calorie Malnutrition: *Partial complex seizures: On carbamazepine -Patient could not describe what types of seizures he experiences Plan: cont ceftriaxone until further infection r/o, continue vanco -CT c/a/p for worseing leukcytosis/bandemia/continued fevers Continue CIWA protocol Continue Lima catheter for urinary retention -D5W -dietary consult Seizure precautions Continue levothyroxine and carbamazepine PT/OT evaluations -CM for SNF placement ppx: lovenox bid (monitor plts) full code Time Spent With Patient Time: Total time spent is greater than 50% in coordination of care (as documented) at patient's floor/unit and/or counseling patient: QUALITY VTE Deep Vein Thrombosis/Pulmonary Embolism Present on Admission: No
[2021-04-18 08:21] LABS: Band Neutrophils % 10 % (0-10); Lymphocytes % 13 % (15-49); Microcytosis 1+ (None Seen); Monocytes % (Manual) 5 % (1-12); Platelet Estimate NORMAL (Normal); RBC Morphology ABNORMAL (Normal); Reactive Lymphocytes 1 % (0-2); Segmented Neutrophils % 71 % (38-78)
[2021-04-18] MEDS ORDERED: ENOXAPARIN 100 MG/ML SYRINGE SQ SCH (09:00)
[2021-04-18] MEDS: MULTIVIT,THER IRON,CA,FA & MIN 1 TABLET PO SCH (09:24)
[2021-04-18] MEDS: FOLIC ACID 1 MG TABLET PO SCH (09:24)
[2021-04-18] MEDS: PANTOPRAZOLE 40 MG TABLET PO SCH (09:24)
[2021-04-18] MEDS: DOCUSATE SODIUM 100 MG CAPSULE PO SCH ×2 (09:24→21:15)
[2021-04-18] MEDS: carBAMazepine 200 MG TABLET PO SCH ×2 (09:24→21:15)
[2021-04-18] MEDS: LEVOTHYROXINE 25 MCG TABLET PO SCH (09:24)
[2021-04-18] MEDS: ACETAMINOPHEN 325 MG TABLET PO PRN (09:25)
[2021-04-18] MEDS: cefTRIAXone 1 GM VIAL IV SCH (09:25)
[2021-04-18] MEDS: THIAMINE 100 MG TABLET PO SCH (09:25)
[2021-04-18] MEDS: PNEUMOCOCCAL 23-VAL P-SAC VAC 0.5 ML SYRINGE IM ONE ×2 (09:29→14:30)
[2021-04-18] MEDS: VANCOMYCIN 1,000 MG in DEXTROSE 5% IN WATER 250 ML IV SCH ×2 (09:30→21:16)
[2021-04-18] MEDS ORDERED: diphenhydrAMINE 25 MG CAPSULE PO SCH ×2 (10:45→15:03)
[2021-04-18] MEDS ORDERED: IOPAMIDOL 100 ML BOTTLE IV ONE ×2 (12:41→15:03)
[2021-04-18 13:03] LABS: POC Blood Urea Nitrogen 28 mg/dL (6-20); POC CO2 24 mmol/L (22-30); POC Calcium, Ionized 1.01 mmEq/L (1.16-1.32); POC Chloride 104 mEq/L (96-108); POC Creatinine 0.8 mg/dL (0.6-1.2); POC Glucose, Random 129 mg/dL (70-105); POC Hematocrit 32 % (41-55); POC Potassium 3.2 mEql/L (3.3-5.1); POC Sodium 142 mEq/L (133-145)
--- NOTE | 2021-04-18 13:03 | Cat Scan Report ---
INDICATION: r/o occult infection and obstruction COMPARISON: None. TECHNIQUE: Axial images were obtained through the chest,abdomen and pelvis. Sagittally and coronally reformatted images. 80ml Isovue 370 injected intravenously. Oral contrast material was given FINDINGS: Chest CT:Chest CT scan is suboptimal as this patient is unable to suspend respiration. Lungs:No pulmonary parenchymal consolidation. No detectable nodules. No significant centrilobular or paraseptal emphysema. Lower lobes are not well evaluated due to respiratory movement Mediastinum:No pathologic mediastinal adenopathy. Small pretracheal and prevascular lymph nodes are probably physiologic. No hilar mass. Thoracic aorta is normal without aneurysmal dilatation. Main pulmonary artery measures 4.0 cm in cross-sectional diameter. This is enlarged and is probably secondary to pulmonary arterial hypertension no pulmonary emboli are identified although a pulmonary CTA was not performed Heart:No significant cardiomegaly. No pericardial effusion. There is mitral annular calcification. There is coronary artery calcification. Pleura:No pleural fluid. No pleural-based mass. No pleural calcifications Axilla, supraclavicular regions, chest wall:No pathologic axillary or supraclavicular adenopathy Musculoskeletal:There is ossification of the anterior longitudinal ligament. Ankylosing spondylitis is possible. No thoracic compression fractures. No lytic lesions. Sternum is negative. No rib lesions. Abdomen/Pelvis: Liver:Negative liver. No focal intrahepatic mass. Liver contour is smooth. There is no ascites Gallbladder, bilary:No calcified gallstones. No gallbladder wall thickening or pericholecystic fluid. No dilated bile ducts Spleen:Spleen is not enlarged. There is a 3.1 cm low density lesion in the inferior spleen. Etiology is not certain. Splenic lesions are typically benign. This may be a hemangioma. Appearance is not typical of a simple cyst. Splenic abscesses are rare but can occur, especially in the presence of endocarditis. There are no gas bubbles. Pancreas:No pancreatic mass. No peripancreatic abnormality Adrenal glands:Negative Kidneys, ureters, bladder:No solid renal mass. No hydronephrosis. No hydroureter. No ureteral stones There is a Lima catheter within the urinary bladder. Bladder is not distended. Generalized wall thickening is possible but this is difficult to assess in a nondistended bladder. There are no bladder calculi Gastrointestinal:No detectable colonic mass. There is no diverticulitis. Small bowel is negative. No mechanical small bowel obstruction. Stomach and duodenum are within normal limits Appendix: The appendix is not visualized. No secondary findings of appendicitis Vascular:There is calcification of the abdominal aorta. No abdominal aortic aneurysm. Celiac trunk and superior mesenteric artery are negative for stenosis Lymphatic:No pathologic retroperitoneal or mesenteric adenopathy Mesentery, peritoneum:No free intraperitoneal fluid. No intra-abdominal abscess. No pneumoperitoneum Reproductive:Prostate does not appear significantly enlarged Musculoskeletal:No compression fractures. No lytic lesions. Sacrum, pelvis, hips are negative. There is mild multilevel degenerative disc disease. There is partial ankylosis of the sacroiliac joints. This may indicate ankylosing spondylitis There is no anterior abdominal wall or inguinal hernia. Probable previous repair of a left inguinal hernia IMPRESSION: 1. Enlarged pulmonary artery consistent with pulmonary arterial hypertension 2. Atherosclerotic calcification including coronary artery disease 3. 3 cm low-density lesion in the inferior spleen. Etiology is not certain. Benign processes including hemangioma are possible. Splenic abscess is not excluded 4. Lima catheter within the urinary bladder. Bladder is not distended. Diffuse bladder wall thickening is possible 5. No diverticulitis. No diverticular abscess 6. Possible ankylosing spondylitis The exam was performed using radiation dose optimization techniques including, but not limited to, automated exposure control, adjustment of the mA and/or kV according to patient size and use of iterative reconstruction technique. Interpreted and Authenticated by: Andres Harrington 04/18/21
[2021-04-18] MEDS ORDERED: 0.45 % SODIUM CHLORIDE 500 ML IV SCH ×2 (13:30→15:03)
[2021-04-18] MEDS ORDERED: VANCOMYCIN PER PHARMACY IV SCH (15:03)
[2021-04-18] MEDS ORDERED: ONDANSETRON 4 MG/2 ML VIAL IV PRN (15:03)
[2021-04-18] MEDS ORDERED: POLYETHYLENE GLYCOL 3350 17 GM PACKET PO PRN (15:03)
[2021-04-18] MEDS ORDERED: ACETAMINOPHEN 650 MG/65 ML BAG IV PRN (15:03)
[2021-04-18] MEDS ORDERED: cloNIDine HCL 0.1 MG TABLET PO PRN (15:03)
[2021-04-18] MEDS ORDERED: IPRATROPIUM/ALBUTEROL 3 ML AMPUL.NEB NEB PRN (15:03)
[2021-04-18] MEDS ORDERED: ONDANSETRON 4 MG ODT TABLET SL PRN (15:03)
[2021-04-18] MEDS ORDERED: LOPERAMIDE 2 MG CAPSULE PO PRN (15:03)
[2021-04-18] MEDS ORDERED: SENNOSIDES 1 TABLET PO PRN ×2 (15:03)
[2021-04-18] MEDS ORDERED: LORazepam 2 MG/ML VIAL IV PRN (15:03)
[2021-04-18] MEDS ORDERED: POTASSIUM CHLORIDE 20 MEQ TABLET PO PRN (15:03)
[2021-04-18 18:51] LABS: POC Blood Urea Nitrogen 26 mg/dL (6-20); POC CO2 25 mmol/L (22-30); POC Calcium, Ionized 1.02 mmEq/L (1.16-1.32); POC Chloride 104 mEq/L (96-108); POC Creatinine 0.7 mg/dL (0.6-1.2); POC Glucose, Random 108 mg/dL (70-105); POC Hematocrit 36 % (41-55); POC Potassium 3.4 mEql/L (3.3-5.1); POC Sodium 144 mEq/L (133-145)
[2021-04-18] MEDS ORDERED: MELATONIN 3 MG TABLET PO SCH (21:00)
[2021-04-18] MEDS: ENOXAPARIN 80 MG/0.8 ML SYRINGE SQ SCH (21:15)
[2021-04-18] MEDS: MELATONIN 3 MG TABLET PO SCH (21:15)
[2021-04-19] MEDS: 0.9 % SODIUM CHLORIDE 10 ML SYRINGE IV SCH ×3 (04:06→21:04)
[2021-04-19 07:06] LABS: Hematocrit 31.9 % (41.0-55.0); Hemoglobin 10.7 g/dL (13.5-16.5); Mean Cell Volume 108.9 fL (80.0-100.0); Mean Corpuscular HGB Conc 33.5 g/dL (31.0-36.0); Platelet Count 178 K/mcL (140-440); RBC 2.93 M/mcL (4.50-5.90); Red Cell Distribution Width 13.8 % (11.5-14.5); WBC 14.5 K/mcL (4.5-11.0)
[2021-04-19 07:26] LABS: ALT/SGPT 59 U/L (<40); AST/SGOT 54 U/L (<40); Albumin 1.9 gm/dL (3.2-5.2); Albumin/Globulin Ratio 0.5 (1.0-2.3); Alkaline Phosphatase 107 U/L (39-117); Bilirubin,Direct 0.6 mg/dL (<0.3); Bilirubin,Total 1.1 mg/dL (0.1-1.0); Blood Urea Nitrogen 27 mg/dL (8-23); Calcium 8.2 mg/dL (8.6-10.4); Carbon Dioxide 28 mmol/L (22-30); Chloride 107 mmol/L (96-108); Globulin 3.9 gm/dL (2.2-3.7); Glomerular Filtration Rate 74; Glucose 134 mg/dL (70-105); Lactate Dehydrogenase 294 U/L (135-225); Phosphorous 3.3 mg/dL (2.5-4.5); Triglycerides 143 mg/dL (<150); Uric Acid 6.9 mg/dL (2.5-8.0)
[2021-04-19] MEDS ORDERED: POTASSIUM CHLORIDE 20 MEQ TABLET PO ONE (07:52)
--- NOTE | 2021-04-19 07:55 | Internal Med Progress Note ---
SUBJECTIVE Subjective Patient information: Note initiated : 04/19/21 at 7:49 am Service Date, if different from initiated Date: [] Patient: Fahad Jimenez 75 y/o M admitted on 04/13/21 for fall. Chief Complaint: [] Interval history: Mr. Jimenez is a 75 year old M with a history of partial complex seizures, hypothyroidism, alcohol abuse who presents the ED via EMS after being down on the floor of his workshop for 2 days. History is obtained speaking with Dr. Ramirez in the ED, reviewing records and limited history from the patient who is quite confused. Per report from his , he drinks 2 bottles of wine a day. At one point of my interview, he does tell me that he has not drank alcohol in 3 days. Apparently the patient has sleep in the back patio in the warm weather. He has been doing that this week. 2 days ago patient became weak in his arms and legs. Because of the sun and heat, he crawled into his covered workshop and lay on the concrete floor since then. Does not appear he has had much to eat or drink in that timeframe. He is quite vague on how long he had been there. His was concerned and called EMS today. Patient is unable to elaborate further on what is passed in the last 2 days. Upon arrival by EMS temperatures febrile to 102, pulse was in the 120s. He received IV fluids. His oxygen saturations were 89% in the field and he was tachypneic. Upon arrival in the ED, patient remained tachycardic at 122 blood pressure is 163/95 respiratory rate was 29. He received 2 further liters of IV fluids in the ED (3 total including EMS). Evaluation revealed white count of 11,000, thrombocytopenia at 64,000, hyponatremia 129. BUN is elevated at 46 and creatinine 2.0, with no known history of renal disease per his . Lactate is elevated 2.1. Troponin mildly abnormal at 0.04 and CPK is in the [address] scan of the head showed old chronic changes. Chest x-ray concerning for left lower lobe infiltrate. Patient is being admitted for treatment of severe sepsis associated with pneumonia. Subsequent to arriving on the floor, urine analysis returns showing significant pyuria and bacteriuria, thus the patient is being treated for sepsis from both pulmonary and urinary source. fter admission yesterday, the patient became more more confused, eventually moved to PCU status. Treated with CIWA protocol for alcohol withdrawal. This morning he is more alert and clearer. His is bedside. She explains that he had refused when she had attempted to call EMS earlier. He had been on his left side for about 2 days. She did bring him some food and fluids to drink. He apparently drinks regularly and consistently. Lima catheter placed yesterday evening for urinary retention. Labs show a white count of 11,000, unchanged. This evening at about 24 hours of incubation, 4/4 bottles of admit blood cultures are positive for gram-positive cocci in clusters. 8/3awake, conversant this morning. Is having trouble swallowing. Is having difficulty self-feeding. Speech evaluation pending. Liver enzymes elevated and about the same, and hepatocellular pattern. Troponin 0 0.08 this morning, was 0.04 at admission, no chest pain. Lima catheter remains in place, still very weak. 8 Patient given Ativan for elevated CIWA last night. Patient has no new complaints this morning. 04/17 Required less Ativan last night. Patient states he is feeling better today. No new complaints. Fever curve slowly improving. Mildly elevated sodium today. We will give D5 water. 04/18 Patient seems to be feeling a little bit better today. Diagnosed with subclavian vein thrombosis yesterday. Leukocytosis worsening. still having fevers although better today. 04/19 No overnight event or new complaints patient states he is feeling little bit better again. Afebrile overnight. Leukocytosis slightly improved from yesterday. Had a good bowel movement yesterday. Sodium within normal limits today. Review of Systems: denies headache/fever/chills/nausea/vomiting/chest or abdominal pain/cough /dyspnea/diarrhea. Otherwise see above. Constitutional Vitals: Vital Signs Temp Pulse Resp BP Pulse Ox 98.9 F 99 H 18 124/78 94 04/19/21 03:22 04/19/21 03:22 04/19/21 03:22 04/19/21 03:22 04/19/21 03:22 Period Temp Pulse Resp BP Sys/[place] Pulse Ox Last 24 Hr 97.4 F-100.6 F 76-104 16-29 112-158/64-83 94-97 Intake and Output 04/18/21 04/19/21 04/19/21 21:59 05:59 13:59 Intake Total 500 610 Output Total 1974 1699 Balance -1475 -1090 Weight 99.989 kg Intake & Output: Intake & Output 04/18/21 04/19/21 04/19/21 21:59 05:59 13:59 Intake Total 500 610 Output Total 1974 1699 Balance -1475 -1090 Weight 99.989 kg Intake: IV 500 250 Sodium Chloride 0.45% 500 ml @ 500 75 mls/hr IV .[id number] [facility] Rx#: [id number] Vancomycin 1,000 mg In Dextrose 250 5% in Water 250 ml @ 250 mls/ hr IV Q12H [facility] Rx#:[id number] Oral 0 360 Output: Urine Catheter Amount 1974 1699 Other: Urine Appearance Clear Sediment Uretheral (Lima) Sediment Urine Color Bright Yellow Dark Yellow Uretheral (Lima) Dark Yellow Stool Size Large Stool Color Brown Stool Consistency Soft # Bowel Movements 1 Exam: General: Alert, Awake, No acute Distress Eyes/N/T: EOMI, Head/Neck: neck supple, CV: RRR, 2/6 SM, Pulm: clear anteriorly b/l, no wheezing/rhonchi/rales Abd: soft, distended today, +BSx4 Ext: no clubbing/cyanosis/edema Neuro: Alert & oriented x4, no focal deficits, moves all extremities, Skin: warm/dry OBJ DATA Labs CBC & Chem 7: 04/19/21 05:24 04/19/21 05:23 Labs: Abnormal Lab Results 04/19/21 04/19/21 04/19/21 05:24 05:23 05:23 WBC 14.5 H RBC 2.93 L Hgb 10.7 L Hct 31.9 L POC Hct MCV 108.9 H MCH 36.5 H Plt Count MPV 12.0 H Neut % (Auto) Lymph % (Auto) Lymph # (Auto) [place] # (Auto) Lymphocytes % Absolute Neutrophils RBC Morphology Microcytosis POC Sodium Sodium POC Potassium Potassium 3.2 L POC Chloride Chloride POC BUN BUN 27 H Glucose 134 H POC Glucose Calcium 8.2 L POC WB Ioniz Calcium Total Bilirubin 1.1 H Direct Bilirubin 0.6 H GGT 304 H AST 54 H ALT 59 H Lactate Dehydrogenase 294 H Total Creatine Kinase C-Reactive Protein 5.40 H Total Protein 5.8 L Albumin 1.9 L Globulin 3.9 H Albumin/Globulin Ratio 0.5 L Prealbumin Procalcitonin 04/18/21 04/18/21 04/18/21 18:30 12:55 05:02 WBC RBC Hgb Hct POC Hct 36 L 32 L MCV MCH Plt Count MPV Neut % (Auto) Lymph % (Auto) Lymph # (Auto) [place] # (Auto) Lymphocytes % Absolute Neutrophils RBC Morphology Microcytosis POC Sodium Sodium POC Potassium 3.2 L Potassium POC Chloride Chloride POC BUN 26 H 28 H BUN Glucose POC Glucose 108 H 129 H Calcium POC WB Ioniz Calcium 1.02 L 1.01 L Total Bilirubin Direct Bilirubin GGT AST ALT Lactate Dehydrogenase Total Creatine Kinase C-Reactive Protein 7.20 H Total Protein Albumin Globulin Albumin/Globulin Ratio Prealbumin Procalcitonin 04/18/21 04/18/21 04/18/21 05:02 05:02 05:01 WBC 15.0 H RBC 3.48 L Hgb 13.1 L Hct 38.6 L POC Hct MCV 110.9 H MCH 37.6 H Plt Count MPV 12.1 H Neut % (Auto) Lymph % (Auto) Lymph # (Auto) [place] # (Auto) Lymphocytes % 13 L Absolute Neutrophils RBC Morphology Abnormal A Microcytosis 1+ A POC Sodium Sodium 146 H POC Potassium Potassium POC Chloride Chloride POC BUN BUN 29 H Glucose 122 H POC Glucose Calcium POC WB Ioniz Calcium Total Bilirubin 1.2 H Direct Bilirubin 0.6 H GGT 336 H AST 70 H ALT 80 H Lactate Dehydrogenase 377 H Total Creatine Kinase C-Reactive Protein Total Protein Albumin 2.0 L Globulin 4.5 H Albumin/Globulin Ratio 0.4 L Prealbumin Procalcitonin 1.10 H 04/17/21 04/17/21 04/17/21 23:05 17:29 14:28 WBC RBC Hgb Hct POC Hct 34 L 34 L MCV MCH Plt Count MPV Neut % (Auto) Lymph % (Auto) Lymph # (Auto) [place] # (Auto) Lymphocytes % Absolute Neutrophils RBC Morphology Microcytosis POC Sodium 147 H 150 H Sodium 147 H 148 H POC Potassium 3.1 L Potassium 3.1 L 3.2 L POC Chloride 111 H Chloride 112 H 113 H POC BUN 34 H 33 H BUN 36 H 35 H Glucose 160 H 181 H POC Glucose 162 H 161 H Calcium 8.2 L POC WB Ioniz Calcium Total Bilirubin Direct Bilirubin GGT AST ALT Lactate Dehydrogenase Total Creatine Kinase C-Reactive Protein Total Protein Albumin Globulin Albumin/Globulin Ratio Prealbumin Procalcitonin 04/17/21 04/17/21 04/17/21 08:34 05:04 05:04 WBC 13.5 H RBC 3.32 L Hgb 12.4 L Hct 36.9 L POC Hct MCV 111.1 H MCH 37.3 H Plt Count 131 L MPV 11.8 H Neut % (Auto) 82.6 H Lymph % (Auto) 8.5 L Lymph # (Auto) 1.15 L [place] # (Auto) 1.07 H Lymphocytes % Absolute Neutrophils 11.12 H RBC Morphology Microcytosis POC Sodium Sodium 147 H POC Potassium Potassium POC Chloride Chloride 115 H POC BUN BUN 32 H Glucose 123 H POC Glucose Calcium POC WB Ioniz Calcium Total Bilirubin 1.3 H Direct Bilirubin 0.6 H GGT 314 H AST 83 H ALT 86 H Lactate Dehydrogenase 444 H Total Creatine Kinase C-Reactive Protein Total Protein Albumin 1.5 L Globulin 4.6 H Albumin/Globulin Ratio 0.3 L Prealbumin 6.0 L Procalcitonin 04/16/21 04/16/21 07:59 05:19 WBC RBC Hgb Hct POC Hct MCV MCH Plt Count MPV Neut % (Auto) 80.1 H Lymph % (Auto) Lymph # (Auto) [place] # (Auto) Lymphocytes % Absolute Neutrophils RBC Morphology Microcytosis POC Sodium Sodium POC Potassium Potassium POC Chloride Chloride POC BUN BUN Glucose POC Glucose Calcium POC WB Ioniz Calcium Total Bilirubin Direct Bilirubin GGT AST ALT Lactate Dehydrogenase Total Creatine Kinase 1002 H C-Reactive Protein Total Protein Albumin Globulin Albumin/Globulin Ratio Prealbumin Procalcitonin Meds: Medications Acetaminophen (Acetaminophen 325 Mg Tablet) 650 mg PO Q6HP PRN; Protocol PRN Reason: Per Pain Protocol/Fever > 101 Albuterol/Ipratropium (Ipratropium/Albuterol 3 Ml Ampul.Neb) 3 ml NEB Q6HP PRN PRN Reason: Dyspnea Carbamazepine (Carbamazepine 200 Mg Tablet) 100 mg PO BID [facility] Last Admin: 04/18/21 21:15 Dose: 100 mg Documented by: Ceftriaxone Sodium (Ceftriaxone 1 Gm Vial) 1 gm IV Q24H [facility] Clonidine HCl (Clonidine Hcl 0.1 Mg Tablet) 0.1 mg PO Q4HP PRN PRN Reason: ALC Diphenhydramine HCl (Diphenhydramine 25 Mg Capsule) 25 mg PO HSP [facility] Stop: 04/19/21 10:46 Docusate Sodium (Docusate Sodium 100 Mg Capsule) 100 mg PO BID [facility] Last Admin: 04/18/21 21:15 Dose: 100 mg Documented by: Enoxaparin Sodium (Enoxaparin 80 Mg/0.8 Ml Syringe) 80 mg SQ HS [facility] Last Admin: 04/18/21 21:15 Dose: 80 mg Documented by: Enoxaparin Sodium (Enoxaparin 100 Mg/Ml Syringe) 100 mg SQ DAILY [facility] Folic Acid (Folic Acid 1 Mg Tablet) 1 mg PO DAILY [facility] Acetaminophen (Ofirmev) 650 mg in 65 mls @ 130 mls/hr IV Q6HP PRN; Protocol PRN Reason: PRN Fever> 100.4 Vancomycin HCl 1,000 mg/ (Dextrose) 250 mls @ 250 mls/hr IV Q12H [facility] Last Infusion: 04/18/21 22:20 Dose: Infused Documented by: Iron Carb/Multivit/Morris/Folic Acid (Multivit,Ther Iron,Ca,Fa & Min 1 Tablet) 1 tab PO DAILY [facility] Levothyroxine Sodium (Levothyroxine 25 Mcg Tablet) 25 mcg PO QAMAC [facility] Loperamide HCl (Loperamide 2 Mg Capsule) 2 mg PO PRN PRN PRN Reason: Diarrhea Lorazepam (Lorazepam 2 Mg/Ml Vial) 0 mg IV Q4HP PRN; Protocol PRN Reason: Alcohol Withdrawal Melatonin (Melatonin 3 Mg Tablet) 3 mg PO QHS [facility] Last Admin: 04/18/21 21:15 Dose: 3 mg Documented by: Ondansetron HCl (Ondansetron 4 Mg Odt Tablet) 4 mg SL Q6HP PRN PRN Reason: Nausea And Vomiting Ondansetron HCl (Ondansetron 4 Mg/2 Ml Vial) 4 mg IV Q6HP PRN PRN Reason: Nausea And Vomiting Pantoprazole Sodium (Pantoprazole 40 Mg Tablet) 40 mg PO QAMAC [facility] Polyethylene Glycol (Polyethylene Glycol 3350 17 Gm Packet) 17 gm PO DAILYP PRN PRN Reason: Constipation Potassium Chloride (Potassium Chloride 20 Meq Tablet) 40 meq PO UD PRN PRN Reason: Potssium is 3-3.5 Senna (Sennosides 1 Tablet) 1 tab PO DAILYP PRN PRN Reason: constipation Senna (Sennosides 1 Tablet) 2 tab PO HSP PRN PRN Reason: Constipation Sodium Chloride (0.9 % Sodium Chloride 10 Ml Syringe) 10 ml IV Q8 [facility] Last Admin: 04/19/21 04:06 Dose: 10 ml Documented by: Thiamine HCl (Thiamine 100 Mg Tablet) 100 mg PO QDAY [facility] Vancomycin HCl (Vancomycin Per Pharmacy) 1 order IV UD [facility]; Protocol A/P Narrative A/P Narrative: A: *Severe sepsis: 2/2 PNA/UTI. 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 compression injury of muscles from lying on concrete floor *Dehydration: resolved, had been laying on the floor of his workshop for 2 days *Alcohol abuse & withdrawal: -Per history, patient drinks 2 bottles of wine a day. Provided history as last drink 3-days [employer]. -Was able to tell me that he had been to rehabilitation before -Suspect part of his tachycardia and confusion is related to withdrawal in addition to sepsis *Encephalopathy: 2/2 etoh w/d and very likley superimposed on underlying Dementia -improved *Suspect underlying dementia vs MCI: -CT brain with cerebral atrophy and small vessel dz *Transaminitis: Hepatocellular pattern, Likely related to alcohol use, Fatty findings on ultrasound, no biliary disease -improved *Abnormal troponin: Suspect demand perfusion mismatch, not ACS *Thrombocytopenia: May be 2/2 sepsis, though likely effects of chronic alcohol consumption *Hyponatremia: Suspect secondary to volume depletion and dehydration. resolved *Hypothyroidism: On levothyroxine *protein-calorie Malnutrition: *Partial complex seizures: On carbamazepine -Patient could not describe what types of seizures he experiences Plan: on ceftriaxone (d/c) pending man diff, continue vanco Continue CIWA protocol, vitamins Continue Lima catheter for urinary retention -dietary consult Seizure precautions Continue levothyroxine and carbamazepine PT/OT evaluations -CM for SNF placement ppx: lovenox bid (monitor plts) full code Time Spent With Patient Time: Total time spent is greater than 50% in coordination of care (as documented) at patient's floor/unit and/or counseling patient: QUALITY VTE Deep Vein Thrombosis/Pulmonary Embolism Present on Admission: No
[2021-04-19 07:56] LABS: Lymphocytes % 9 % (15-49); Macrocytosis 1+ (None Seen); Monocytes % (Manual) 3 % (1-12); Platelet Estimate NORMAL (Normal); RBC Morphology ABNORMAL (Normal); Segmented Neutrophils % 88 % (38-78); Toxic Granulation 2+ (None Seen)
[2021-04-19] MEDS: THIAMINE 100 MG TABLET PO SCH (08:58)
[2021-04-19] MEDS: DOCUSATE SODIUM 100 MG CAPSULE PO SCH ×2 (08:59→21:05)
[2021-04-19] MEDS: LEVOTHYROXINE 25 MCG TABLET PO SCH (08:59)
[2021-04-19] MEDS: PANTOPRAZOLE 40 MG TABLET PO SCH (08:59)
[2021-04-19] MEDS: carBAMazepine 200 MG TABLET PO SCH ×2 (08:59→21:05)
[2021-04-19] MEDS: MULTIVIT,THER IRON,CA,FA & MIN 1 TABLET PO SCH (08:59)
[2021-04-19] MEDS ORDERED: cefTRIAXone 1 GM VIAL IV SCH (09:00)
[2021-04-19] MEDS: ENOXAPARIN 100 MG/ML SYRINGE SQ SCH (09:01)
[2021-04-19] MEDS: VANCOMYCIN 1,000 MG in DEXTROSE 5% IN WATER 250 ML IV SCH ×2 (09:13→21:05)
[2021-04-19] MEDS: FOLIC ACID 1 MG TABLET PO SCH (09:50)
[2021-04-19] MEDS: ACETAMINOPHEN 325 MG TABLET PO PRN (13:00)
[2021-04-19] MEDS: ENOXAPARIN 80 MG/0.8 ML SYRINGE SQ SCH (21:04)
[2021-04-19] MEDS: MELATONIN 3 MG TABLET PO SCH (21:05)
[2021-04-20] MEDS: 0.9 % SODIUM CHLORIDE 10 ML SYRINGE IV SCH ×5 (05:42→21:07)
[2021-04-20 06:46] LABS: Hematocrit 33.4 % (41.0-55.0); Hemoglobin 11.3 g/dL (13.5-16.5); Mean Cell Volume 109.5 fL (80.0-100.0); Mean Corpuscular HGB Conc 33.8 g/dL (31.0-36.0); Mean Platelet Volume 11.8 fL (7.4-10.4); Platelet Count 207 K/mcL (140-440); RBC 3.05 M/mcL (4.50-5.90); Red Cell Distribution Width 13.6 % (11.5-14.5); WBC 15.7 K/mcL (4.5-11.0)
[2021-04-20 07:14] LABS: ALT/SGPT 54 U/L (<40); AST/SGOT 48 U/L (<40); Albumin 2.2 gm/dL (3.2-5.2); Albumin/Globulin Ratio 0.5 (1.0-2.3); Alkaline Phosphatase 118 U/L (39-117); Bilirubin,Direct 0.6 mg/dL (<0.3); Bilirubin,Total 1.1 mg/dL (0.1-1.0); Blood Urea Nitrogen 20 mg/dL (8-23); Calcium 8.3 mg/dL (8.6-10.4); Carbon Dioxide 27 mmol/L (22-30); Chloride 108 mmol/L (96-108); Globulin 4.1 gm/dL (2.2-3.7); Glomerular Filtration Rate 84; Glucose 113 mg/dL (70-105); Lactate Dehydrogenase 299 U/L (135-225); Phosphorous 3.3 mg/dL (2.5-4.5); Triglycerides 166 mg/dL (<150); Uric Acid 6.4 mg/dL (2.5-8.0)
--- NOTE | 2021-04-20 08:37 | Internal Med Progress Note ---
SUBJECTIVE Subjective Patient information: Note initiated : 04/20/21 at 8:33 am Service Date, if different from initiated Date: [] Patient: Fahad Jimenez 75 y/o M admitted on 04/13/21 for fall. Chief Complaint: [] Interval history: Mr. Jimenez is a 75 year old M with a history of partial complex seizures, hypothyroidism, alcohol abuse who presents the ED via EMS after being down on the floor of his workshop for 2 days. History is obtained speaking with Dr. Ramirez in the ED, reviewing records and limited history from the patient who is quite confused. Per report from his , he drinks 2 bottles of wine a day. At one point of my interview, he does tell me that he has not drank alcohol in 3 days. Apparently the patient has sleep in the back patio in the warm weather. He has been doing that this week. 2 days ago patient became weak in his arms and legs. Because of the sun and heat, he crawled into his covered workshop and lay on the concrete floor since then. Does not appear he has had much to eat or drink in that timeframe. He is quite vague on how long he had been there. His was concerned and called EMS today. Patient is unable to elaborate further on what is passed in the last 2 days. Upon arrival by EMS temperatures febrile to 102, pulse was in the 120s. He received IV fluids. His oxygen saturations were 89% in the field and he was tachypneic. Upon arrival in the ED, patient remained tachycardic at 122 blood pressure is 163/95 respiratory rate was 29. He received 2 further liters of IV fluids in the ED (3 total including EMS). Evaluation revealed white count of 11,000, thrombocytopenia at 64,000, hyponatremia 129. BUN is elevated at 46 and creatinine 2.0, with no known history of renal disease per his . Lactate is elevated 2.1. Troponin mildly abnormal at 0.04 and CPK is in the [address] scan of the head showed old chronic changes. Chest x-ray concerning for left lower lobe infiltrate. Patient is being admitted for treatment of severe sepsis associated with pneumonia. Subsequent to arriving on the floor, urine analysis returns showing significant pyuria and bacteriuria, thus the patient is being treated for sepsis from both pulmonary and urinary source. 2after admission yesterday, the patient became more more confused, eventually moved to PCU status. Treated with CIWA protocol for alcohol withdrawal. This morning he is more alert and clearer. His is bedside. She explains that he had refused when she had attempted to call EMS earlier. He had been on his left side for about 2 days. She did bring him some food and fluids to drink. He apparently drinks regularly and consistently. Bailey catheter placed yesterday evening for urinary retention. Labs show a white count of 11,000, unchanged. This evening at about 24 hours of incubation, 4/4 bottles of admit blood cultures are positive for gram-positive cocci in clusters. 8/3awake, conversant this morning. Is having trouble swallowing. Is having difficulty self-feeding. Speech evaluation pending. Liver enzymes elevated and about the same, and hepatocellular pattern. Troponin 0 0.08 this morning, was 0.04 at admission, no chest pain. Bailey catheter remains in place, still very weak. 8 Patient given Ativan for elevated CIWA last night. Patient has no new complaints this morning. 04/17 Required less Ativan last night. Patient states he is feeling better today. No new complaints. Fever curve slowly improving. Mildly elevated sodium today. We will give D5 water. 04/18 Patient seems to be feeling a little bit better today. Diagnosed with subclavian vein thrombosis yesterday. Leukocytosis worsening. still having fevers although better today. 04/19 No overnight event or new complaints patient states he is feeling little bit better again. Afebrile overnight. Leukocytosis slightly improved from yesterday. Had a good bowel movement yesterday. Sodium within normal limits today. 04/20 No overnight event or new complaints. Patient on room air. Chemistry unremarkable. CBC with persistent leukocytosis. Afebrile. Review of Systems: denies headache/fever/chills/nausea/vomiting/chest or abdominal pain/cough/dyspnea/diarrhea. Otherwise see above. Constitutional Vitals: Vital Signs Temp Pulse Resp BP Pulse Ox 98.0 F 97 H 18 125/71 94 04/20/21 06:59 04/20/21 06:59 04/20/21 06:59 04/20/21 06:59 04/20/21 06:59 Period Temp Pulse Resp BP Sys/Reno Pulse Ox Last 24 Hr 97.9 F-98.5 F 91-105 18-20 114-149/65-81 94-97 Intake and Output 04/19/21 04/20/21 04/20/21 21:59 05:59 13:59 Intake Total 250 Output Total 1500 2225 Weight 99.79 kg Intake & Output: Intake & Output 04/19/21 04/20/21 04/20/21 21:59 05:59 13:59 Intake Total 250 Output Total 1500 5 Weight 99.79 kg Intake: IV 250 Vancomycin 1,000 mg In Dextrose 250 5% in Water 250 ml @ 250 mls/ hr IV Q12H [facility] Rx#:[id number] Output: Urine Catheter Amount [id number] Other: Urine Appearance Cloudy Sediment Uretheral (Bailey) Sediment Urine Color Dark Yellow Uretheral (Bailey) Dark Yellow Urine Odor Normal Exam: General: Awake, No acute Distress Eyes/N/T: EOMI, Head/Neck: neck supple, CV: RRR, 2/6 SM, Pulm: clear anteriorly b/l, no wheezing/rhonchi/rales Abd: soft, distended today, +BSx4 Ext: no clubbing/cyanosis/edema Neuro: Alert & oriented x4, no focal deficits, moves all extremities, Skin: warm/dry OBJ DATA Labs CBC & Chem 7: 04/20/21 05:14 04/20/21 05:14 Labs: Abnormal Lab Results 04/20/21 04/20/21 04/20/21 05:14 05:14 05:14 WBC 15.7 H RBC 3.05 L Hgb 11.3 L Hct 33.4 L POC Hct MCV 109.5 H MCH 37.0 H MPV 11.8 H Seg Neutrophils % Lymphocytes % WBC Morphology Vacuolated Neuts Toxic Granulation RBC Morphology Microcytosis Macrocytosis POC Sodium Sodium POC Potassium Potassium POC Chloride Chloride POC BUN BUN Glucose 113 H POC Glucose Calcium 8.3 L POC WB Ioniz Calcium Total Bilirubin 1.1 H Direct Bilirubin 0.6 H GGT 304 H AST 48 H ALT 54 H Alkaline Phosphatase 118 H Lactate Dehydrogenase 299 H C-Reactive Protein 5.70 H Total Protein Albumin 2.2 L Globulin 4.1 H Albumin/Globulin Ratio 0.5 L Prealbumin Triglycerides 166 H Procalcitonin 0.76 H 04/19/21 04/19/21 04/19/21 05:24 05:23 05:23 WBC 14.5 H RBC 2.93 L Hgb 10.7 L Hct 31.9 L POC Hct MCV 108.9 H MCH 36.5 H MPV 12.0 H Seg Neutrophils % 88 H Lymphocytes % 9 L WBC Morphology Abnormal A Vacuolated Neuts 1+ A Toxic Granulation 2+ A RBC Morphology Abnormal A Microcytosis Macrocytosis 1+ A POC Sodium Sodium POC Potassium Potassium 3.2 L POC Chloride Chloride POC BUN BUN 27 H Glucose 134 H POC Glucose Calcium 8.2 L POC WB Ioniz Calcium Total Bilirubin 1.1 H Direct Bilirubin 0.6 H GGT 304 H AST 54 H ALT 59 H Alkaline Phosphatase Lactate Dehydrogenase 294 H C-Reactive Protein 5.40 H Total Protein 5.8 L Albumin 1.9 L Globulin 3.9 H Albumin/Globulin Ratio 0.5 L Prealbumin Triglycerides Procalcitonin 04/18/21 04/18/21 04/18/21 18:30 12:55 05:02 WBC RBC Hgb Hct POC Hct 36 L 32 L MCV MCH MPV Seg Neutrophils % Lymphocytes % WBC Morphology Vacuolated Neuts Toxic Granulation RBC Morphology Microcytosis Macrocytosis POC Sodium Sodium POC Potassium 3.2 L Potassium POC Chloride Chloride POC BUN 26 H 28 H BUN Glucose POC Glucose 108 H 129 H Calcium POC WB Ioniz Calcium 1.02 L 1.01 L Total Bilirubin Direct Bilirubin GGT AST ALT Alkaline Phosphatase Lactate Dehydrogenase C-Reactive Protein 7.20 H Total Protein Albumin Globulin Albumin/Globulin Ratio Prealbumin Triglycerides Procalcitonin 04/18/21 04/18/21 04/18/21 05:02 05:02 05:01 WBC 15.0 H RBC 3.48 L Hgb 13.1 L Hct 38.6 L POC Hct MCV 110.9 H MCH 37.6 H MPV 12.1 H Seg Neutrophils % Lymphocytes % 13 L WBC Morphology Vacuolated Neuts Toxic Granulation RBC Morphology Abnormal A Microcytosis 1+ A Macrocytosis POC Sodium Sodium 146 H POC Potassium Potassium POC Chloride Chloride POC BUN BUN 29 H Glucose 122 H POC Glucose Calcium POC WB Ioniz Calcium Total Bilirubin 1.2 H Direct Bilirubin 0.6 H GGT 336 H AST 70 H ALT 80 H Alkaline Phosphatase Lactate Dehydrogenase 377 H C-Reactive Protein Total Protein Albumin 2.0 L Globulin 4.5 H Albumin/Globulin Ratio 0.4 L Prealbumin Triglycerides Procalcitonin 1.10 H 08/05/21 08/05/21 08/05/21 23:05 17:29 14:28 WBC RBC Hgb Hct POC Hct 34 L 34 L MCV MCH MPV Seg Neutrophils % Lymphocytes % WBC Morphology Vacuolated Neuts Toxic Granulation RBC Morphology Microcytosis Macrocytosis POC Sodium 147 H 150 H Sodium 147 H 148 H POC Potassium 3.1 L Potassium 3.1 L 3.2 L POC Chloride 111 H Chloride 112 H 113 H POC BUN 34 H 33 H BUN 36 H 35 H Glucose 160 H 181 H POC Glucose 162 H 161 H Calcium 8.2 L POC WB Ioniz Calcium Total Bilirubin Direct Bilirubin GGT AST ALT Alkaline Phosphatase Lactate Dehydrogenase C-Reactive Protein Total Protein Albumin Globulin Albumin/Globulin Ratio Prealbumin Triglycerides Procalcitonin 04/17/21 08:34 WBC RBC Hgb Hct POC Hct MCV MCH MPV Seg Neutrophils % Lymphocytes % WBC Morphology Vacuolated Neuts Toxic Granulation RBC Morphology Microcytosis Macrocytosis POC Sodium Sodium POC Potassium Potassium POC Chloride Chloride POC BUN BUN Glucose POC Glucose Calcium POC WB Ioniz Calcium Total Bilirubin Direct Bilirubin GGT AST ALT Alkaline Phosphatase Lactate Dehydrogenase C-Reactive Protein Total Protein Albumin Globulin Albumin/Globulin Ratio Prealbumin 6.0 L Triglycerides Procalcitonin Meds: Medications Acetaminophen (Acetaminophen 325 Mg Tablet) 650 mg PO Q6HP PRN; Protocol PRN Reason: Per Pain Protocol/Fever > 101 Last Admin: 04/19/21 13:00 Dose: 650 mg Documented by: Albuterol/Ipratropium (Ipratropium/Albuterol 3 Ml Ampul.Neb) 3 ml NEB Q6HP PRN PRN Reason: Dyspnea Carbamazepine (Carbamazepine 200 Mg Tablet) 100 mg PO BID [facility] Last Admin: 04/19/21 21:05 Dose: 100 mg Documented by: Clonidine HCl (Clonidine Hcl 0.1 Mg Tablet) 0.1 mg PO Q4HP PRN PRN Reason: ALC Docusate Sodium (Docusate Sodium 100 Mg Capsule) 100 mg PO BID [facility] Last Admin: 04/19/21 21:05 Dose: 100 mg Documented by: Enoxaparin Sodium (Enoxaparin 80 Mg/0.8 Ml Syringe) 80 mg SQ HS [facility] Last Admin: 04/19/21 21:04 Dose: 80 mg Documented by: Enoxaparin Sodium (Enoxaparin 100 Mg/Ml Syringe) 100 mg SQ DAILY [facility] Last Admin: 04/19/21 09:01 Dose: 100 mg Documented by: Folic Acid (Folic Acid 1 Mg Tablet) 1 mg PO DAILY [facility] Last Admin: 04/19/21 09:50 Dose: 1 mg Documented by: Acetaminophen (Ofirmev) 650 mg in 65 mls @ 130 mls/hr IV Q6HP PRN; Protocol PRN Reason: PRN Fever> 100.4 Vancomycin HCl 1,000 mg/ (Dextrose) 250 mls @ 250 mls/hr IV Q12H [facility] Last Infusion: 04/19/21 22:10 Dose: Infused Documented by: Iron Carb/Multivit/[place]/Folic Acid (Multivit,Ther Iron,Ca,Fa & Min 1 Tablet) 1 tab PO DAILY [facility] Last Admin: 04/19/21 08:59 Dose: 1 tab Documented by: Levothyroxine Sodium (Levothyroxine 25 Mcg Tablet) 25 mcg PO [facility] Last Admin: 04/19/21 08:59 Dose: 25 mcg Documented by: Loperamide HCl (Loperamide 2 Mg Capsule) 2 mg PO PRN PRN PRN Reason: Diarrhea Melatonin (Melatonin 3 Mg Tablet) 3 mg PO QHS [facility] Last Admin: 04/19/21 21:05 Dose: 3 mg Documented by: Ondansetron HCl (Ondansetron 4 Mg Odt Tablet) 4 mg SL Q6HP PRN PRN Reason: Nausea And Vomiting Ondansetron HCl (Ondansetron 4 Mg/2 Ml Vial) 4 mg IV Q6HP PRN PRN Reason: Nausea And Vomiting Pantoprazole Sodium ([facility]razole 40 Mg Tablet) [facility] Last Admin: 04/19/21 08:59 Dose: 40 mg Documented by: Polyethylene Glycol (Polyethylene Glycol 3350 17 Gm Packet) 17 gm PO DAILYP PRN PRN Reason: Constipation Potassium Chloride (Potassium Chloride 20 Meq Tablet) 40 meq PO UD PRN PRN Reason: Potssium is 3-3.5 Senna (Sennosides 1 Tablet) 1 tab PO DAILYP PRN PRN Reason: constipation Senna (Sennosides 1 Tablet) 2 tab PO HSP PRN PRN Reason: Constipation Sodium Chloride (0.9 % Sodium Chloride 10 Ml Syringe) 10 ml IV Q8 [facility] Last Admin: 04/20/21 05:42 Dose: 10 ml Documented by: Thiamine HCl (Thiamine 100 Mg Tablet) 100 mg PO QDAY [facility] Last Admin: 04/19/21 08:58 Dose: 100 mg Documented by: Vancomycin HCl (Vancomycin Per Pharmacy) 1 order IV UD [facility]; Protocol A/P Narrative A/P Narrative: A: *Severe sepsis: 2/2 PNA/UTI. -now afebrile *Bacteremia (MSSA): -echo good EF, no vegetations, mod /AI -repeat BC neg so far *Leukocytosis/fevers(resolved): persisent leukocytosis but pt does not appear toxic. 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 compression injury of muscles from lying on concrete floor *Dehydration: resolved, had been laying on the floor of his workshop for 2 days *Alcohol abuse & withdrawal: -Per history, patient drinks 2 bottles of wine a day. Provided history as last drink 3-days [employer]. -Was able to tell me that he had been to rehabilitation before -Suspect part of his tachycardia and confusion is related to withdrawal in addition to sepsis *Encephalopathy: 2/2 etoh w/d and very likley superimposed on underlying De mentia -improved *Suspect underlying dementia: -CT brain with cerebral atrophy and small vessel dz *Transaminitis: Hepatocellular pattern, Likely related to alcohol use, Fatty findings on ultrasound, no biliary disease -improved *Abnormal troponin: Suspect demand perfusion mismatch, not ACS *Thrombocytopenia: May be 2/2 sepsis, though likely effects of chronic alcohol consumption *Hyponatremia: Suspect secondary to volume depletion and dehydration. resolved *Hypothyroidism: On levothyroxine *protein-calorie Malnutrition: *Partial complex seizures: On carbamazepine -Patient could not describe what types of seizures he experiences Plan: continue vanco, PICC placement, discuss with Dr. Holguin on wednesday peripheral smear pending d/c bailey and check PVR -flomax started -dietary consult Seizure precautions Continue levothyroxine and carbamazepine PT/OT evaluations -CM for SNF placement ppx: lovenox bid (monitor plts) full code Time Spent With Patient Time: Total time spent is greater than 50% in coordination of care (as documented) at patient's floor/unit and/or counseling patient: QUALITY VTE Deep Vein Thrombosis/Pulmonary Embolism Present on Admission: No
[2021-04-20] MEDS ORDERED: 0.9 % SODIUM CHLORIDE 10 ML SYRINGE IV PRN (08:41)
[2021-04-20] MEDS ORDERED: TAMSULOSIN 0.4 MG CAPSULE PO ONE (08:44)
[2021-04-20 08:56] LABS: Anisocytosis FEW (None Seen); Band Neutrophils % 2 % (0-10); Lymphocytes % 9 % (15-49); Macrocytosis 1+ (None Seen); Monocytes % (Manual) 3 % (1-12); Platelet Estimate NORMAL (Normal); RBC Morphology ABNORMAL (Normal); Segmented Neutrophils % 86 % (38-78)
[2021-04-20] MEDS: ENOXAPARIN 100 MG/ML SYRINGE SQ SCH (09:27)
[2021-04-20] MEDS: PANTOPRAZOLE 40 MG TABLET PO SCH (09:27)
[2021-04-20] MEDS: carBAMazepine 200 MG TABLET PO SCH ×2 (09:27→20:36)
[2021-04-20] MEDS: LEVOTHYROXINE 25 MCG TABLET PO SCH (09:28)
[2021-04-20] MEDS: DOCUSATE SODIUM 100 MG CAPSULE PO SCH ×2 (09:28→20:37)
[2021-04-20] MEDS: THIAMINE 100 MG TABLET PO SCH (09:28)
[2021-04-20] MEDS: VANCOMYCIN 1,000 MG in DEXTROSE 5% IN WATER 250 ML IV SCH ×2 (09:28→20:35)
[2021-04-20] MEDS: FOLIC ACID 1 MG TABLET PO SCH (09:28)
[2021-04-20] MEDS: MULTIVIT,THER IRON,CA,FA & MIN 1 TABLET PO SCH (09:28)
[2021-04-20] MEDS: ACETAMINOPHEN 325 MG TABLET PO PRN (09:31)
[2021-04-20 10:20] LABS: Erythrocyte Sedimentation Rate 115 mm/hr (0-15)
[2021-04-20] MEDS: RIVAROXABAN 15 MG TABLET PO SCH (18:24)
[2021-04-20] MEDS: MELATONIN 3 MG TABLET PO SCH (20:36)
[2021-04-20] MEDS: TAMSULOSIN 0.4 MG CAPSULE PO SCH (20:36)
[2021-04-21] MEDS: 0.9 % SODIUM CHLORIDE 10 ML SYRINGE IV SCH ×5 (06:16→20:59)
[2021-04-21 06:58] LABS: Basophils # (Auto) 0.07 K/mcL (0.00-0.20); Basophils % (Auto) 0.4 % (0.0-2.0); Eosinophils # (Auto) 0.12 K/mcL (0.00-0.70); Eosinophils % (Auto) 0.8 % (0.0-7.0); Hematocrit 31.5 % (41.0-55.0); Hemoglobin 10.6 g/dL (13.5-16.5); Lymphocytes # (Auto) 1.33 K/mcL (1.50-4.80); Lymphocytes % (Auto) 8.4 % (15.0-49.0); Mean Cell Volume 109.8 fL (80.0-100.0); Mean Corpuscular HGB Conc 33.7 g/dL (31.0-36.0); Mean Platelet Volume 11.6 fL (7.4-10.4); Monocytes # (Auto) 0.84 K/mcL (0.10-0.90); Monocytes % (Auto) 5.3 % (1.0-12.0); Neutrophils % (Auto) 85.1 % (38.0-78.0); Platelet Count 210 K/mcL (140-440); RBC 2.87 M/mcL (4.50-5.90); Red Cell Distribution Width 13.5 % (11.5-14.5); WBC 15.9 K/mcL (4.5-11.0)
[2021-04-21 07:45] LABS: ALT/SGPT 42 U/L (<40); AST/SGOT 42 U/L (<40); Albumin 2.1 gm/dL (3.2-5.2); Albumin/Globulin Ratio 0.5 (1.0-2.3); Alkaline Phosphatase 113 U/L (39-117); Bilirubin,Total 0.9 mg/dL (0.1-1.0); Blood Urea Nitrogen 17 mg/dL (8-23); Calcium 8.1 mg/dL (8.6-10.4); Carbon Dioxide 25 mmol/L (22-30); Chloride 104 mmol/L (96-108); Globulin 4.2 gm/dL (2.2-3.7); Glomerular Filtration Rate 88; Glucose 112 mg/dL (70-105)
[2021-04-21] MEDS: MULTIVIT,THER IRON,CA,FA & MIN 1 TABLET PO SCH (09:22)
[2021-04-21] MEDS: RIVAROXABAN 15 MG TABLET PO SCH ×2 (09:22→17:06)
[2021-04-21] MEDS: DOCUSATE SODIUM 100 MG CAPSULE PO SCH ×2 (09:22→20:51)
[2021-04-21] MEDS: THIAMINE 100 MG TABLET PO SCH (09:23)
[2021-04-21] MEDS: FOLIC ACID 1 MG TABLET PO SCH (09:23)
[2021-04-21] MEDS: LEVOTHYROXINE 25 MCG TABLET PO SCH (09:23)
[2021-04-21] MEDS: PANTOPRAZOLE 40 MG TABLET PO SCH (09:23)
[2021-04-21] MEDS: carBAMazepine 200 MG TABLET PO SCH ×2 (09:23→20:50)
[2021-04-21] MEDS: VANCOMYCIN 1,000 MG in DEXTROSE 5% IN WATER 250 ML IV SCH (11:06)
[2021-04-21] MEDS: ACETAMINOPHEN 325 MG TABLET PO PRN (12:22)
--- NOTE | 2021-04-21 14:00 | XRay Report ---
INDICATION: PICC PLACEMENT TECHNIQUE: AP portable supine chest x-ray COMPARISON: None FINDINGS:Left-sided PICC line is identified. The tip is not well visualized and is probably within the cyst subclavian vein. Lungs:Lungs are not optimally expanded. Interstitial infiltrates are possible. There is no pulmonary parenchymal consolidation. Clinical correlation follow-up regress recommended Heart, vascular:No significant cardiomegaly. Pulmonary vascularity is normal. No pulmonary edema or pulmonary congestion Mediastinum, mynor:No mediastinal widening. No hilar mass Pleura:No pleural fluid. No pleural-based mass or calcification Skeletal:Negative. IMPRESSION: 1. Left-sided PICC line. Tip appears to be in the subclavian vein 2. Lungs are not optimally evaluated. No parenchymal consolidation Interpreted and Authenticated by: Andres Harrington 04/21/21
--- NOTE | 2021-04-21 15:25 | Internal Med Progress Note ---
SUBJECTIVE Subjective Patient information: Note initiated : 04/21/21 at 3:22 pm Service Date, if different from initiated Date: [] Patient: Fahad Jimenez 75 y/o M admitted on 04/13/21 for fall. Chief Complaint: [UTI, bacteremia, altered mental status] Interval history: Mr. Jimenez is a 75 year old M with a history of partial complex seizures, hypothyroidism, alcohol abuse who presents the ED via EMS after being down on the floor of his workshop for 2 days. History is obtained speaking with Dr. Ramirez in the ED, reviewing records and limited history from the patient who is quite confused. Per report from his , he drinks 2 bottles of wine a day. At one point of my interview, he does tell me that he has not drank alcohol in 3 days. Apparently the patient has sleep in the back patio in the warm weather. He has been doing that this week. 2 days ago patient became weak in his arms and legs. Because of the sun and heat, he crawled into his covered workshop and lay on the concrete floor since then. Does not appear he has had much to eat or drink in that timeframe. He is quite vague on how long he had been there. His was concerned and called EMS today. Patient is unable to elaborate further on what is passed in the last 2 days. Upon arrival by EMS temperatures febrile to 102, pulse was in the 120s. He received IV fluids. His oxygen saturations were 89% in the field and he was tachypneic. Upon arrival in the ED, patient remained tachycardic at 122 blood pressure is 163/95 respiratory rate was 29. He received 2 further liters of IV fluids in the ED (3 total including EMS). Evaluation revealed white count of 11,000, thrombocytopenia at 64,000, hyponatremia 129. BUN is elevated at 46 and creatinine 2.0, with no known history of renal disease per his . Lactate is elevated 2.1. Troponin mildly abnormal at 0.04 and CPK is in the [address] scan of the head showed old chronic changes. Chest x-ray concerning for left lower lobe infiltrate. Patient is being admitted for treatment of severe sepsis associated with pneumonia. Subsequent to arriving on the floor, urine analysis returns showing significant pyuria and bacteriuria, thus the patient is being treated for sepsis from both pulmonary and urinary source. 8/2after admission yesterday, the patient became more more confused, eventually moved to PCU status. Treated with CIWA protocol for alcohol withdrawal. This morning he is more alert and clearer. His is bedside. She explains that he had refused when she had attempted to call EMS earlier. He had been on his left side for about 2 days. She did bring him some food and fluids to drink. He apparently drinks regularly and consistently. Lima catheter placed yesterday evening for urinary retention. Labs show a white count of 11,000, unchanged. This evening at about 24 hours of incubation, 4/4 bottles of admit blood cultures are positive for gram-positive cocci in clusters. 8/3awake, conversant this morning. Is having trouble swallowing. Is having difficulty self-feeding. Speech evaluation pending. Liver enzymes elevated and about the same, and hepatocellular pattern. Troponin 0 0.08 this morning, was 0.04 at admission, no chest pain. Lima catheter remains in place, still very weak. 8 Patient given Ativan for elevated CIWA last night. Patient has no new complaints this morning. 04/17 Required less Ativan last night. Patient states he is feeling better today. No new complaints. Fever curve slowly improving. Mildly elevated sodium today. We will give D5 water. 04/18 Patient seems to be feeling a little bit better today. Diagnosed with subclavian vein thrombosis yesterday. Leukocytosis worsening. still having fevers although better today. 04/19 No overnight event or new complaints patient states he is feeling little bit better again. Afebrile overnight. Leukocytosis slightly improved from yesterday. Had a good bowel movement yesterday. Sodium within normal limits today. 04/20 No overnight event or new complaints. Patient on room air. Chemistry unremarkable. CBC with persistent leukocytosis. Afebrile. 04/21: fever with Tmax 38.2. WBC elevated to 15.9. Repeated blood culture no growth to date. Denies any pain or SOB. Denies any urinary symptoms. s/p PICC placement on 04/21/21. Constitutional Vitals: Vital Signs Temp Pulse Resp BP Pulse Ox 37.2 C 103 H 20 120/66 93 04/21/21 13:07 04/21/21 12:00 04/21/21 12:00 04/21/21 12:00 04/21/21 12:00 Period Temp Pulse Resp BP Sys/[place] Pulse Ox Last 24 Hr 36.6 C-38.2 C 96-106 12-20 103-158/56-89 93-98 Intake and Output 04/21/21 04/21/21 04/21/21 05:59 13:59 21:59 Intake Total 480 250 Output Total 4 501 Balance 476 -251 Weight 99.79 kg Patient Weight 04/22/21 05:59 Weight 99.79 kg Intake & Output: Intake & Output 04/21/21 04/21/21 04/21/21 05:59 13:59 21:59 Intake Total 480 250 Output Total 4 501 Balance 476 -251 Weight 99.79 kg Intake: IV 250 Vancomycin 1,000 mg In Dextrose 250 5% in Water 250 ml @ 250 mls/ hr IV Q12H [facility] Rx#:[id number] Oral 480 Output: Void Amount 500 # of times incontinent of urine 4 1 Other: Urine Color Dark Yellow Urine Odor Normal Strong Stool Size Moderate Stool Color Brown Stool Consistency Loose # Bowel Movements 1 # of times incontinent of 2 Bowels General appearance: cooperative and no acute distress Head Head exam: Present atraumatic and normocephalic Eye Eye exam: Present EOMI and PERRL ENT ENT exam: Present mucous membranes moist, normal exam and normal external ear exam Neck Neck exam: Present normal inspection; Absent lymphadenopathy, tenderness and thyromegaly Respiratory Respiratory exam: Absent accessory muscle use, respiratory distress and wheezes Cardiovascular Cardiovascular exam: Present normal rate and rhythm; Absent JVD Additional comments: PICC line in right arm GI/Abdominal GI/Abdominal exam: Present normal bowel sounds and soft; Absent organomegaly and tenderness Rectal Rectal exam: Present deferred Extremities Exam Extremities exam: Present full ROM, normal capillary refill and normal inspection; Absent tenderness Neurological Exam Neurological exam: Present alert and CN II-XII intact; Absent motor sensory deficit and oriented X3 Additional comments: Oriented X1 to person only Psychiatric Psychiatric exam: Present normal affect and normal mood; Absent anxious and depressed Skin Skin exam: Present dry and intact OBJ DATA Labs CBC & Chem 7: 04/21/21 05:55 04/21/21 05:55 Labs: Abnormal Lab Results 04/21/21 04/21/21 04/21/21 05:55 05:55 05:55 WBC 15.9 H RBC 2.87 L Hgb 10.6 L Hct 31.5 L POC Hct MCV 109.8 H MCH 36.9 H MPV 11.6 H Neut % (Auto) 85.1 H Lymph % (Auto) 8.4 L Lymph # (Auto) 1.33 L Seg Neutrophils % Lymphocytes % Absolute Neutrophils 13.53 H WBC Morphology Vacuolated Neuts Toxic Granulation RBC Morphology Anisocytosis Macrocytosis ESR Potassium POC BUN BUN Glucose 112 H POC Glucose Calcium 8.1 L POC WB Ioniz Calcium Total Bilirubin Direct Bilirubin GGT AST 42 H ALT 42 H Alkaline Phosphatase Lactate Dehydrogenase C-Reactive Protein 5.70 H Total Protein Albumin 2.1 L Globulin 4.2 H Albumin/Globulin Ratio 0.5 L Triglycerides Procalcitonin 04/21/21 04/20/21 04/20/21 05:55 05:14 05:14 WBC RBC Hgb Hct POC Hct MCV MCH MPV Neut % (Auto) Lymph % (Auto) Lymph # (Auto) Seg Neutrophils % Lymphocytes % Absolute Neutrophils WBC Morphology Vacuolated Neuts Toxic Granulation RBC Morphology Anisocytosis Macrocytosis ESR 115 H Potassium POC BUN BUN Glucose 113 H POC Glucose Calcium 8.3 L POC WB Ioniz Calcium Total Bilirubin 1.1 H Direct Bilirubin 0.6 H GGT 304 H AST 48 H ALT 54 H Alkaline Phosphatase 118 H Lactate Dehydrogenase 299 H C-Reactive Protein 5.70 H Total Protein Albumin 2.2 L Globulin 4.1 H Albumin/Globulin Ratio 0.5 L Triglycerides 166 H Procalcitonin 0.58 H 04/20/21 04/20/21 04/19/21 05:14 05:14 05:24 WBC 15.7 H 14.5 H RBC 3.05 L 2.93 L Hgb 11.3 L 10.7 L Hct 33.4 L 31.9 L POC Hct MCV 109.5 H 108.9 H MCH 37.0 H 36.5 H MPV 11.8 H 12.0 H Neut % (Auto) Lymph % (Auto) Lymph # (Auto) Seg Neutrophils % 86 H 88 H Lymphocytes % 9 L 9 L Absolute Neutrophils WBC Morphology Abnormal A Vacuolated Neuts 1+ A Toxic Granulation 2+ A RBC Morphology Abnormal A Abnormal A Anisocytosis Few A Macrocytosis 1+ A 1+ A ESR Potassium POC BUN BUN Glucose POC Glucose Calcium POC WB Ioniz Calcium Total Bilirubin Direct Bilirubin GGT AST ALT Alkaline Phosphatase Lactate Dehydrogenase C-Reactive Protein Total Protein Albumin Globulin Albumin/Globulin Ratio Triglycerides Procalcitonin 0.76 H 04/19/21 04/19/21 04/18/21 05:23 05:23 18:30 WBC RBC Hgb Hct POC Hct 36 L MCV MCH MPV Neut % (Auto) Lymph % (Auto) Lymph # (Auto) Seg Neutrophils % Lymphocytes % Absolute Neutrophils WBC Morphology Vacuolated Neuts Toxic Granulation RBC Morphology Anisocytosis Macrocytosis ESR Potassium 3.2 L POC BUN 26 H BUN 27 H Glucose 134 H POC Glucose 108 H Calcium 8.2 L POC WB Ioniz Calcium 1.02 L Total Bilirubin 1.1 H Direct Bilirubin 0.6 H GGT 304 H AST 54 H ALT 59 H Alkaline Phosphatase Lactate Dehydrogenase 294 H C-Reactive Protein 5.40 H Total Protein 5.8 L Albumin 1.9 L Globulin 3.9 H Albumin/Globulin Ratio 0.5 L Triglycerides Procalcitonin Meds: Medications Acetaminophen (Acetaminophen 325 Mg Tablet) 650 mg PO Q6HP PRN; Protocol PRN Reason: Per Pain Protocol/Fever > 101 Last Admin: 04/21/21 12:22 Dose: 650 mg Documented by: Albuterol/Ipratropium (Ipratropium/Albuterol 3 Ml Ampul.Neb) 3 ml NEB Q6HP PRN PRN Reason: Dyspnea Carbamazepine (Carbamazepine 200 Mg Tablet) 100 mg PO BID [facility] Last Admin: 04/21/21 09:23 Dose: 100 mg Documented by: Clonidine HCl (Clonidine Hcl 0.1 Mg Tablet) 0.1 mg PO Q4HP PRN PRN Reason: ALC Docusate Sodium (Docusate Sodium 100 Mg Capsule) 100 mg PO BID [facility] Last Admin: 04/21/21 09:22 Dose: 100 mg Documented by: Folic Acid (Folic Acid 1 Mg Tablet) 1 mg PO DAILY [facility] Last Admin: 04/21/21 09:23 Dose: 1 mg Documented by: Heparin Sodium (Porcine) (Heparin Flush 10 Units/Ml 5 Ml Syringe) 2 ml IV Q12 [facility] Last Admin: 04/21/21 09:24 Dose: Not Given Documented by: Acetaminophen (Ofirmev) 650 mg in 65 mls @ 130 mls/hr IV Q6HP PRN; Protocol PRN Reason: PRN Fever> 100.4 Vancomycin HCl 1,000 mg/ (Dextrose) 250 mls @ 250 mls/hr IV Q12H [facility] Last Infusion: 04/21/21 13:02 Dose: Infused Documented by: Iron Carb/Multivit/[place]/Folic Acid (Multivit,Ther Iron,Ca,Fa & Min 1 Tablet) 1 tab PO DAILY [facility] Last Admin: 04/21/21 09:22 Dose: 1 tab Documented by: Levothyroxine Sodium (Levothyroxine 25 Mcg Tablet) 25 mcg PO [facility] Last Admin: 04/21/21 09:23 Dose: 25 mcg Documented by: Loperamide HCl (Loperamide 2 Mg Capsule) 2 mg PO PRN PRN PRN Reason: Diarrhea Melatonin (Melatonin 3 Mg Tablet) 3 mg PO QHS [facility] Last Admin: 04/20/21 20:36 Dose: 3 mg Documented by: Ondansetron HCl (Ondansetron 4 Mg Odt Tablet) 4 mg SL Q6HP PRN PRN Reason: Nausea And Vomiting Ondansetron HCl (Ondansetron 4 Mg/2 Ml Vial) 4 mg IV Q6HP PRN PRN Reason: Nausea And Vomiting Pantoprazole Sodium (Pantoprazole 40 Mg Tablet) 40 mg PO [facility] Last Admin: 04/21/21 09:23 Dose: 40 mg Documented by: Polyethylene Glycol (Polyethylene Glycol 3350 17 Gm Packet) 17 gm PO DAILYP PRN PRN Reason: Constipation Potassium Chloride (Potassium Chloride 20 Meq Tablet) 40 meq PO UD PRN PRN Reason: Potssium is 3-3.5 Last Admin: 04/20/21 18:24 Dose: 40 meq Documented by: Rivaroxaban (Rivaroxaban 15 Mg Tablet) 15 mg PO BIDCC [facility] Stop: 05/11/21 17:29 Last Admin: 04/21/21 09:22 Dose: 15 mg Documented by: Senna (Sennosides 1 Tablet) 1 tab PO DAILYP PRN PRN Reason: constipation Last Admin: 04/20/21 13:30 Dose: 1 tab Documented by: Senna (Sennosides 1 Tablet) 2 tab PO HSP PRN PRN Reason: Constipation Sodium Chloride (0.9 % Sodium Chloride 10 Ml Syringe) 10 ml IV Q8 [facility] Last Admin: 04/21/21 06:16 Dose: 10 ml Documented by: Sodium Chloride (0.9 % Sodium Chloride 10 Ml Syringe) 10 ml IV UD PRN PRN Reason: FLUSH Sodium Chloride (0.9 % Sodium Chloride 10 Ml Syringe) 10 ml IV Q12 [facility] Last Admin: 04/21/21 09:24 Dose: Not Given Documented by: Tamsulosin HCl (Tamsulosin 0.4 Mg Capsule) 0.4 mg PO HS [facility] Last Admin: 04/20/21 20:36 Dose: 0.4 mg Documented by: Thiamine HCl (Thiamine 100 Mg Tablet) 100 mg PO QDAY [facility] Last Admin: 04/21/21 09:23 Dose: 100 mg Documented by: Vancomycin HCl (Vancomycin Per Pharmacy) 1 order IV UD [facility]; Protocol A/P Assessment and plan (1) Macrocytic anemia with vitamin B12 deficiency: Status: Acute (2) MSSA bacteremia: Status: Acute (3) Acute UTI (urinary tract infection): Status: Acute (4) Alcoholic encephalopathy: Status: Acute (5) Acute embolism and thrombosis of subclavian vein: Status: Acute Narrative A/P Narrative: Assessment and Plans: 1. UTI and Bacteremia: Urine culture: MRSA Initial blood culture: MSSA Repeaet blood culture: no growth to date s/p PICC line placement on 04/21/[address] Holguin, recs. appreciated Tylenol PRN fever cbc w/ auto diff in the morning to trend WBC 2D echocardiogram no signs of endocarditis 2. 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 Subclavian vein DVT: Xarelto 15mg PO BID X21, then 20mg PO daily 4. Macrocytic hyperchromic anemia with vitamin B12 deficiency: Thiamine Folic acid 5. Hypothyroidism: Continue thyroid replacement therapy 6. Partial complex seizure: Continue carbamazepine GI ppx: oral PPI DVT ppx: Xarelto Code status: Full Prognosis: guarded Disposition: inpatient med surg Time Spent With Patient Time: Total time spent is greater than 50% in coordination of care (as documented) at patient's floor/unit and/or counseling patient: Total time spent with greater than 50% in coordination of care (as documented) at patient's floor/unit and/or counseling patient:: 25 - 35 minutes QUALITY VTE Deep Vein Thrombosis/Pulmonary Embolism Present on Admission: No
[2021-04-21] MEDS ORDERED: ceFAZolin 2 GM in DEXTROSE 5% IN WATER 50 ML IV SCH (17:30)
--- NOTE | 2021-04-21 17:40 | Infectious Disease Consult ---
HPI Data of Consult Consult date: 04/21/21 Primary Care Provider: Harshad Kulkarni Consult Narrative Patient Information: Note initiated : 04/21/21 at 5:31 pm Service Date, if different from initiated Date: [04/21/21] Patient: Fahad Jimenez 75 y/o M admitted on 04/13/21 for fall. Chief Complaint: [back pain] Evangelina is a 75-year-old man who was admitted in the hospital on April 13 after being found down at home. He developed left hip pressure ulcer. Urine culture from April 13 grew MRSA. He was originally started on Rocephin plus azithromycin however switched to vancomycin on April 14. Blood cultures on April 13 grew MSSA. Follow-up blood cultures April 15 no growth. An echocardiogram completed April 15 showed 70% ejection fraction with moderate aortic stenosis with moderate aortic insufficiency. No vegetations seen. He is confused. He did answer to the year of 2000 but felt that it was December. He was unable to answer the day of the week. His sed rate yesterday was 115. Vanco trough today 10.9. Creatinine 0.7 on April 18. is present today. His chief complaint is back pain. reports that he did have a testicular cyst approximately 3 months ago that drained spontaneously. No history of dental problems. No complaints of ingrown toenails or boils. 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 Left PICC attempted today unsuccessfully. cc:: CC: Jessica Leon Review of Systems Review of systems: Generally: He has had fevers with admit temp of 102.3. April 14 102.6. April 17 101.3. T-max today 100.8. HEENT: No complaints of headaches. No sore throat or neck complaints. Pulmonary: Pneumonia as a child. No current complaints of cough or shortness of breath. Cardiac: Echocardiogram as above. No history of chest surgery or abdominal surgery. GI: No abdominal pain. Extremities: Positive SCDs. He does move feet to command. Skin: Left hip stage II-III decubitus ulcer present on admission photos in the chart. Musculoskeletal: Back pain not improved since admission. He was confused as to how to answer level of back pain and stated 1 out of 10. PFSH PFSH All Active Problems (Updated 04/21/21 @ 17:47 by Aubrey Holguin MD) Back pain (Acute) Acute embolism and thrombosis of subclavian vein (Acute) Alcoholic encephalopathy (Acute) Macrocytic anemia with vitamin B12 deficiency (Acute) MSSA bacteremia (Acute) Acute UTI (urinary tract infection) (Acute) Rhabdomyolysis (Acute) Hyponatremia (Acute) Thrombocytopenia (Acute) Seizure disorder (Acute) Pneumonia (Acute) Severe sepsis with acute organ dysfunction (Acute) Acute renal injury due to sepsis (Acute) Acute hyponatremia (Acute) Acute dehydration (Acute) Medical History Alcohol abuse Hypothyroid Seizure disorder Social History alcohol intake frequency: 2+ drinks per day MEDS/ALLERGIES Home Medications and Allergies Home Medications Medication Instructions Recorded Confirmed Type carbamazepine [Tegretol] 200 mg PO DAILY 04/13/21 04/13/21 History levothyroxine 25 mcg PO DAILY 04/13/21 04/13/21 History Allergies Allergy/AdvReac Type Severity Reaction Status Date / Time phenytoin [From Dilantin] AdvReac Mild Skin Verified 04/13/21 22:00 Reaction Physical Examination Vital Signs Vital signs: April 13 102.3. April 14 102.6. April 15 101.2. April 16 101.6. April 17 one 101.3. April 18 100.6. April 21 100.8. Temp Pulse Resp BP Pulse Ox 98.3 F 97 H 20 132/71 94 04/21/21 16:00 04/21/21 16:00 04/21/21 16:00 04/21/21 16:00 04/21/21 16:00 Additional Exam Additional exam: General: Appears confused at times. Oriented to year only. HEENT: Slight bleeding of his lower lip. No thrush or oral ulcerations. EOMI sclera anicteric. Neck is supple no cervical adenopathy. Some fullness in the supraclavicular base of neck right side. No ecchymosis. Lungs: Clear bilaterally. Heart: Regular rate and rhythm with 2/6 systolic murmur. Abdomen soft nontender. Extremities: Lower extremity edema 2+. He does move feet to command. Skin ulceration observed from photo left hip Results Laboratory Findings CBC and BMP: 04/21/21 05:55 04/21/21 05:55 Abnormal lab findings: Abnormal Labs 04/13/21 04/13/21 04/13/21 18:35 18:58 18:58 WBC 11.7 H RBC 3.63 L Hgb Hct 38.5 L POC Hct MCV 106.1 H MCH 38.0 H Plt Count 60 L MPV 11.8 H Neut % (Auto) 88.6 H Lymph % (Auto) 2.2 L [place] % (Auto) Lymph # (Auto) 0.26 L [place] # (Auto) 1.04 H Seg Neutrophils % Lymphocytes % Absolute Neutrophils 10.36 H WBC Morphology Vacuolated Neuts Toxic Granulation RBC Morphology Anisocytosis Microcytosis Macrocytosis ESR VBG Lactic Acid POC Sodium Sodium 129 L POC Potassium Potassium POC Chloride Chloride 92 L POC BUN BUN 46 H Creatinine 2.0 H POC Creatinine 1.8 H Glucose 149 H POC Glucose Calcium 8.0 L POC WB Ioniz Calcium Phosphorus Total Bilirubin Direct Bilirubin GGT AST 275 H ALT 108 H Alkaline Phosphatase Lactate Dehydrogenase Total Creatine Kinase 5881 H Troponin T C-Reactive Protein Total Protein Albumin 2.6 L Globulin 4.0 H Albumin/Globulin Ratio 0.6 L Prealbumin Triglycerides Procalcitonin Urine Appearance Urine Protein Urine Occult Blood Ur Leukocyte Esterase Urine RBC Urine WBC Urine Bacteria Hyaline Casts 04/13/21 04/13/21 04/13/21 18:58 18:58 20:26 WBC RBC Hgb Hct POC Hct MCV MCH Plt Count MPV Neut % (Auto) Lymph % (Auto) [place] % (Auto) Lymph # (Auto) [place] # (Auto) Seg Neutrophils % Lymphocytes % Absolute Neutrophils WBC Morphology Vacuolated Neuts Toxic Granulation RBC Morphology Anisocytosis Microcytosis Macrocytosis ESR VBG Lactic Acid 2.1 H POC Sodium Sodium POC Potassium Potassium POC Chloride Chloride POC BUN BUN Creatinine POC Creatinine Glucose POC Glucose Calcium POC WB Ioniz Calcium Phosphorus Total Bilirubin Direct Bilirubin GGT AST ALT Alkaline Phosphatase Lactate Dehydrogenase Total Creatine Kinase Troponin T 0.04 H* C-Reactive Protein Total Protein Albumin Globulin Albumin/Globulin Ratio Prealbumin Triglycerides Procalcitonin Urine Appearance Turbid A Urine Protein 100 A Urine Occult Blood >=1.0 A Ur Leukocyte Esterase 250 A Urine RBC 8 H Urine WBC > 182 H Urine Bacteria Few A Hyaline Casts 83 H 04/14/21 04/14/21 04/15/21 05:15 05:15 05:09 WBC 11.7 H RBC 3.52 L Hgb 13.4 L Hct 38.6 L POC Hct MCV 109.7 H MCH 38.1 H Plt Count 62 L MPV 11.8 H Neut % (Auto) 81.0 H Lymph % (Auto) 4.1 L [place] % (Auto) 14.5 H Lymph # (Auto) 0.48 L [place] # (Auto) 1.69 H Seg Neutrophils % Lymphocytes % Absolute Neutrophils 9.48 H WBC Morphology Vacuolated Neuts Toxic Granulation RBC Morphology Anisocytosis Microcytosis Macrocytosis ESR VBG Lactic Acid POC Sodium Sodium POC Potassium Potassium POC Chloride Chloride POC BUN BUN 49 H Creatinine 1.8 H POC Creatinine Glucose 135 H POC Glucose Calcium 7.9 L POC WB Ioniz Calcium Phosphorus 4.7 H Total Bilirubin Direct Bilirubin 0.4 H GGT 272 H AST 275 H ALT 102 H Alkaline Phosphatase Lactate Dehydrogenase 530 H Total Creatine Kinase 2798 H Troponin T C-Reactive Protein Total Protein Albumin 2.4 L Globulin Albumin/Globulin Ratio 0.6 L Prealbumin Triglycerides Procalcitonin Urine Appearance Urine Protein Urine Occult Blood Ur Leukocyte Esterase Urine RBC Urine WBC Urine Bacteria Hyaline Casts 04/15/21 04/15/21 04/15/21 05:10 05:10 05:10 WBC 11.5 H RBC 3.40 L Hgb 12.9 L Hct 36.4 L POC Hct MCV 107.1 H MCH 37.9 H Plt Count 65 L MPV 12.6 H Neut % (Auto) Lymph % (Auto) 7.3 L [place] % (Auto) 14.9 H Lymph # (Auto) 0.84 L [place] # (Auto) 1.72 H Seg Neutrophils % Lymphocytes % Absolute Neutrophils 8.90 H WBC Morphology Vacuolated Neuts Toxic Granulation RBC Morphology Anisocytosis Microcytosis Macrocytosis ESR VBG Lactic Acid POC Sodium Sodium POC Potassium Potassium 3.2 L POC Chloride Chloride POC BUN BUN 48 H Creatinine 1.4 H POC Creatinine Glucose 109 H POC Glucose Calcium 8.1 L POC WB Ioniz Calcium Phosphorus Total Bilirubin Direct Bilirubin 0.6 H GGT 368 H AST 260 H ALT 120 H Alkaline Phosphatase 118 H Lactate Dehydrogenase 462 H Total Creatine Kinase Troponin T 0.08 H* C-Reactive Protein Total Protein Albumin 2.2 L Globulin Albumin/Globulin Ratio 0.6 L Prealbumin Triglycerides Procalcitonin Urine Appearance Urine Protein Urine Occult Blood Ur Leukocyte Esterase Urine RBC Urine WBC Urine Bacteria Hyaline Casts 04/16/21 04/16/21 04/16/21 05:19 05:19 07:59 WBC 11.3 H RBC 3.33 L Hgb 12.6 L Hct 36.4 L POC Hct MCV 109.3 H MCH 37.8 H Plt Count 77 L MPV 12.4 H Neut % (Auto) 80.1 H Lymph % (Auto) 7.9 L [place] % (Auto) Lymph # (Auto) 0.89 L [place] # (Auto) 1.27 H Seg Neutrophils % Lymphocytes % Absolute Neutrophils 9.09 H WBC Morphology Vacuolated Neuts Toxic Granulation RBC Morphology Anisocytosis Microcytosis Macrocytosis ESR VBG Lactic Acid POC Sodium Sodium POC Potassium Potassium POC Chloride Chloride 111 H POC BUN BUN 41 H Creatinine POC Creatinine Glucose 121 H POC Glucose Calcium 8.1 L POC WB Ioniz Calcium Phosphorus Total Bilirubin 1.2 H Direct Bilirubin 0.7 H GGT 340 H AST 128 H ALT 99 H Alkaline Phosphatase Lactate Dehydrogenase 442 H Total Creatine Kinase 1002 H Troponin T C-Reactive Protein Total Protein Albumin 2.2 L Globulin 3.9 H Albumin/Globulin Ratio 0.6 L Prealbumin Triglycerides Procalcitonin Urine Appearance Urine Protein Urine Occult Blood Ur Leukocyte Esterase Urine RBC Urine WBC Urine Bacteria Hyaline Casts 04/17/21 04/17/21 04/17/21 05:04 05:04 08:34 WBC 13.5 H RBC 3.32 L Hgb 12.4 L Hct 36.9 L POC Hct MCV 111.1 H MCH 37.3 H Plt Count 131 L MPV 11.8 H Neut % (Auto) 82.6 H Lymph % (Auto) 8.5 L [place] % (Auto) Lymph # (Auto) 1.15 L [place] # (Auto) 1.07 H Seg Neutrophils % Lymphocytes % Absolute Neutrophils 11.12 H WBC Morphology Vacuolated Neuts Toxic Granulation RBC Morphology Anisocytosis Microcytosis Macrocytosis ESR VBG Lactic Acid POC Sodium Sodium 147 H POC Potassium Potassium POC Chloride Chloride 115 H POC BUN BUN 32 H Creatinine POC Creatinine Glucose 123 H POC Glucose Calcium POC WB Ioniz Calcium Phosphorus Total Bilirubin 1.3 H Direct Bilirubin 0.6 H GGT 314 H AST 83 H ALT 86 H Alkaline Phosphatase Lactate Dehydrogenase 444 H Total Creatine Kinase Troponin T C-Reactive Protein Total Protein Albumin 1.5 L Globulin 4.6 H Albumin/Globulin Ratio 0.3 L Prealbumin 6.0 L Triglycerides Procalcitonin Urine Appearance Urine Protein Urine Occult Blood Ur Leukocyte Esterase Urine RBC Urine WBC Urine Bacteria Hyaline Casts 04/17/21 04/17/21 04/17/21 14:28 17:29 23:05 WBC RBC Hgb Hct POC Hct 34 L 34 L MCV MCH Plt Count MPV Neut % (Auto) Lymph % (Auto) [place] % (Auto) Lymph # (Auto) [place] # (Auto) Seg Neutrophils % Lymphocytes % Absolute Neutrophils WBC Morphology Vacuolated Neuts Toxic Granulation RBC Morphology Anisocytosis Microcytosis Macrocytosis ESR VBG Lactic Acid POC Sodium 150 H 147 H Sodium 148 H 147 H POC Potassium 3.1 L Potassium 3.2 L 3.1 L POC Chloride 111 H Chloride 113 H 112 H POC BUN 33 H 34 H BUN 35 H 36 H Creatinine POC Creatinine Glucose 181 H 160 H POC Glucose 161 H 162 H Calcium 8.2 L POC WB Ioniz Calcium Phosphorus Total Bilirubin Direct Bilirubin GGT AST ALT Alkaline Phosphatase Lactate Dehydrogenase Total Creatine Kinase Troponin T C-Reactive Protein Total Protein Albumin Globulin Albumin/Globulin Ratio Prealbumin Triglycerides Procalcitonin Urine Appearance Urine Protein Urine Occult Blood Ur Leukocyte Esterase Urine RBC Urine WBC Urine Bacteria Hyaline Casts 04/18/21 04/18/21 04/18/21 05:01 05:02 05:02 WBC 15.0 H RBC 3.48 L Hgb 13.1 L Hct 38.6 L POC Hct MCV 110.9 H MCH 37.6 H Plt Count MPV 12.1 H Neut % (Auto) Lymph % (Auto) [place] % (Auto) Lymph # (Auto) [place] # (Auto) Seg Neutrophils % Lymphocytes % 13 L Absolute Neutrophils WBC Morphology Vacuolated Neuts Toxic Granulation RBC Morphology Abnormal A Anisocytosis Microcytosis 1+ A Macrocytosis ESR VBG Lactic Acid POC Sodium Sodium 146 H POC Potassium Potassium POC Chloride Chloride POC BUN BUN 29 H Creatinine POC Creatinine Glucose 122 H POC Glucose Calcium POC WB Ioniz Calcium Phosphorus Total Bilirubin 1.2 H Direct Bilirubin 0.6 H GGT 336 H AST 70 H ALT 80 H Alkaline Phosphatase Lactate Dehydrogenase 377 H Total Creatine Kinase Troponin T C-Reactive Protein Total Protein Albumin 2.0 L Globulin 4.5 H Albumin/Globulin Ratio 0.4 L Prealbumin Triglycerides Procalcitonin 1.10 H Urine Appearance Urine Protein Urine Occult Blood Ur Leukocyte Esterase Urine RBC Urine WBC Urine Bacteria Hyaline Casts 04/18/21 04/18/21 04/18/21 05:02 12:55 18:30 WBC RBC Hgb Hct POC Hct 32 L 36 L MCV MCH Plt Count MPV Neut % (Auto) Lymph % (Auto) [place] % (Auto) Lymph # (Auto) [place] # (Auto) Seg Neutrophils % Lymphocytes % Absolute Neutrophils WBC Morphology Vacuolated Neuts Toxic Granulation RBC Morphology Anisocytosis Microcytosis Macrocytosis ESR VBG Lactic Acid POC Sodium Sodium POC Potassium 3.2 L Potassium POC Chloride Chloride POC BUN 28 H 26 H BUN Creatinine POC Creatinine Glucose POC Glucose 129 H 108 H Calcium POC WB Ioniz Calcium 1.01 L 1.02 L Phosphorus Total Bilirubin Direct Bilirubin GGT AST ALT Alkaline Phosphatase Lactate Dehydrogenase Total Creatine Kinase Troponin T C-Reactive Protein 7.20 H Total Protein Albumin Globulin Albumin/Globulin Ratio Prealbumin Triglycerides Procalcitonin Urine Appearance Urine Protein Urine Occult Blood Ur Leukocyte Esterase Urine RBC Urine WBC Urine Bacteria Hyaline Casts 04/19/21 04/19/21 04/19/21 05:23 05:23 05:24 WBC 14.5 H RBC 2.93 L Hgb 10.7 L Hct 31.9 L POC Hct MCV 108.9 H MCH 36.5 H Plt Count MPV 12.0 H Neut % (Auto) Lymph % (Auto) [place] % (Auto) Lymph # (Auto) [place] # (Auto) Seg Neutrophils % 88 H Lymphocytes % 9 L Absolute Neutrophils WBC Morphology Abnormal A Vacuolated Neuts 1+ A Toxic Granulation 2+ A RBC Morphology Abnormal A Anisocytosis Microcytosis Macrocytosis 1+ A ESR VBG Lactic Acid POC Sodium Sodium POC Potassium Potassium 3.2 L POC Chloride Chloride POC BUN BUN 27 H Creatinine POC Creatinine Glucose 134 H POC Glucose Calcium 8.2 L POC WB Ioniz Calcium Phosphorus Total Bilirubin 1.1 H Direct Bilirubin 0.6 H GGT 304 H AST 54 H ALT 59 H Alkaline Phosphatase Lactate Dehydrogenase 294 H Total Creatine Kinase Troponin T C-Reactive Protein 5.40 H Total Protein 5.8 L Albumin 1.9 L Globulin 3.9 H Albumin/Globulin Ratio 0.5 L Prealbumin Triglycerides Procalcitonin Urine Appearance Urine Protein Urine Occult Blood Ur Leukocyte Esterase Urine RBC Urine WBC Urine Bacteria Hyaline Casts 04/20/21 04/20/21 04/20/21 05:14 05:14 05:14 WBC 15.7 H RBC 3.05 L Hgb 11.3 L Hct 33.4 L POC Hct MCV 109.5 H MCH 37.0 H Plt Count MPV 11.8 H Neut % (Auto) Lymph % (Auto) [place] % (Auto) Lymph # (Auto) [place] # (Auto) Seg Neutrophils % 86 H Lymphocytes % 9 L Absolute Neutrophils WBC Morphology Vacuolated Neuts Toxic Granulation RBC Morphology Abnormal A Anisocytosis Few A Microcytosis Macrocytosis 1+ A ESR VBG Lactic Acid POC Sodium Sodium POC Potassium Potassium POC Chloride Chloride POC BUN BUN Creatinine POC Creatinine Glucose 113 H POC Glucose Calcium 8.3 L POC WB Ioniz Calcium Phosphorus Total Bilirubin 1.1 H Direct Bilirubin 0.6 H GGT 304 H AST 48 H ALT 54 H Alkaline Phosphatase 118 H Lactate Dehydrogenase 299 H Total Creatine Kinase Troponin T C-Reactive Protein 5.70 H Total Protein Albumin 2.2 L Globulin 4.1 H Albumin/Globulin Ratio 0.5 L Prealbumin Triglycerides 166 H Procalcitonin 0.76 H Urine Appearance Urine Protein Urine Occult Blood Ur Leukocyte Esterase Urine RBC Urine WBC Urine Bacteria Hyaline Casts 04/20/21 04/21/21 04/21/21 05:14 05:55 05:55 WBC RBC Hgb Hct POC Hct MCV MCH Plt Count MPV Neut % (Auto) Lymph % (Auto) [place] % (Auto) Lymph # (Auto) [place] # (Auto) Seg Neutrophils % Lymphocytes % Absolute Neutrophils WBC Morphology Vacuolated Neuts Toxic Granulation RBC Morphology Anisocytosis Microcytosis Macrocytosis ESR 115 H VBG Lactic Acid POC Sodium Sodium POC Potassium Potassium POC Chloride Chloride POC BUN BUN Creatinine POC Creatinine Glucose POC Glucose Calcium POC WB Ioniz Calcium Phosphorus Total Bilirubin Direct Bilirubin GGT AST ALT Alkaline Phosphatase Lactate Dehydrogenase Total Creatine Kinase Troponin T C-Reactive Protein 5.70 H Total Protein Albumin Globulin Albumin/Globulin Ratio Prealbumin Triglycerides Procalcitonin 0.58 H Urine Appearance Urine Protein Urine Occult Blood Ur Leukocyte Esterase Urine RBC Urine WBC Urine Bacteria Hyaline Casts 04/21/21 04/21/21 05:55 05:55 WBC 15.9 H RBC 2.87 L Hgb 10.6 L Hct 31.5 L POC Hct MCV 109.8 H MCH 36.9 H Plt Count MPV 11.6 H Neut % (Auto) 85.1 H Lymph % (Auto) 8.4 L [place] % (Auto) Lymph # (Auto) 1.33 L [place] # (Auto) Seg Neutrophils % Lymphocytes % Absolute Neutrophils 13.53 H WBC Morphology Vacuolated Neuts Toxic Granulation RBC Morphology Anisocytosis Microcytosis Macrocytosis ESR VBG Lactic Acid POC Sodium Sodium POC Potassium Potassium POC Chloride Chloride POC BUN BUN Creatinine POC Creatinine Glucose 112 H POC Glucose Calcium 8.1 L POC WB Ioniz Calcium Phosphorus Total Bilirubin Direct Bilirubin GGT AST 42 H ALT 42 H Alkaline Phosphatase Lactate Dehydrogenase Total Creatine Kinase Troponin T C-Reactive Protein Total Protein Albumin 2.1 L Globulin 4.2 H Albumin/Globulin Ratio 0.5 L Prealbumin Triglycerides Procalcitonin Urine Appearance Urine Protein Urine Occult Blood Ur Leukocyte Esterase Urine RBC Urine WBC Urine Bacteria Hyaline Casts Microbiology: Microbiology 04/15/21 16:15 Blood Blood Culture - Final 04/15/21 16:00 Blood Blood Culture - Final 04/13/21 20:26 Urine - Clean Void Mid-Stream Urine Culture - Final Methicillin resistant s.aureus 04/13/21 19:38 Blood Blood Culture - Final Staphylococcus aureus 04/13/21 18:58 Blood Blood Culture - Final Staphylococcus aureus April 13 admit cultures MSSA. Urine culture MRSA. April 15 - blood cultures. April 20 sed rate 115 today white count 15.9 85 segs H&H 07/13 platelet count 210. April 18 creatinine 0.7. Admit creatinine 2.0. CT scan chest abdomen pelvis completed April 18 showed a splenic lesion at 3.1 cm. No other abscess identified including in the back region. A/P Assessment and plan (1) MSSA bacteremia: Status: Acute Comment: Fahad is a 75-year-old alcoholic who was admitted in the hospital April 13 for severe sepsis and acute kidney injury. He had positive blood cultures for MSSA. Surveillance blood cultures negative. Echocardiogram on April 15 showed moderate left ear and moderate AI with no vegetation. His chief complaint is back pain. He is currently day 7 IV Vanco since first negative blood culture. MRSA was identified from urine culture but not blood cultures. I would consider the UTI treated after a week of Vanco. However, T-max today 100.8 with leukocytosis to 15.9. He has a history of chronic back pain. He has not noticed improvement in back pain since admission. I would recommend MRI lumbosacral spine with contrast to evaluate for epidural abscess, paraspinal muscle abscess, discitis or vertebral oste omyelitis. transition from Vanco to IV Ancef 2 g 3 times daily. (2) Acute UTI (urinary tract infection): Status: Acute Comment: MRSA identified on urine culture. DC vancomycin. Consider UTI treated. (3) Severe sepsis with acute organ dysfunction: Status: Acute Comment: Creatinine improved. (4) Back pain: Status: Acute Comment: Check lumbosacral spine MRI with contrast. Duration of Ancef will be at least 3 more weeks. Possibly longer if abnormality seen in spine. He did have a splenic lesion measuring 3.[address] scan April 18. This may be hemangioma or possibly infection. Further recommendations to follow. Time Spent With Patient Time: Total time spent is greater than 50% in coordination of care (as documented) at patient's floor/unit and/or counseling patient:
[2021-04-21] MEDS: ceFAZolin 1 GM VIAL IV SCH ×2 (17:46→23:37)
[2021-04-21] MEDS: TAMSULOSIN 0.4 MG CAPSULE PO SCH (20:50)
[2021-04-21] MEDS: MELATONIN 3 MG TABLET PO SCH (20:50)
[2021-04-22] MEDS: 0.9 % SODIUM CHLORIDE 10 ML SYRINGE IV SCH ×3 (05:21→14:57)
[2021-04-22] MEDS: ceFAZolin 1 GM VIAL IV SCH ×2 (05:21→14:56)
[2021-04-22 06:56] LABS: Basophils # (Auto) 0.08 K/mcL (0.00-0.20); Basophils % (Auto) 0.5 % (0.0-2.0); Eosinophils # (Auto) 0.12 K/mcL (0.00-0.70); Eosinophils % (Auto) 0.8 % (0.0-7.0); Hematocrit 30.9 % (41.0-55.0); Hemoglobin 10.1 g/dL (13.5-16.5); Lymphocytes # (Auto) 1.18 K/mcL (1.50-4.80); Lymphocytes % (Auto) 7.6 % (15.0-49.0); Mean Cell Volume 113.2 fL (80.0-100.0); Mean Corpuscular HGB Conc 32.7 g/dL (31.0-36.0); Mean Platelet Volume 11.7 fL (7.4-10.4); Monocytes # (Auto) 0.85 K/mcL (0.10-0.90); Monocytes % (Auto) 5.5 % (1.0-12.0); Neutrophils % (Auto) 85.6 % (38.0-78.0); Platelet Count 228 K/mcL (140-440); RBC 2.73 M/mcL (4.50-5.90); Red Cell Distribution Width 13.6 % (11.5-14.5); WBC 15.5 K/mcL (4.5-11.0)
[2021-04-22 07:36] LABS: ALT/SGPT 35 U/L (<40); AST/SGOT 43 U/L (<40); Albumin 1.8 gm/dL (3.2-5.2); Albumin/Globulin Ratio 0.4 (1.0-2.3); Alkaline Phosphatase 104 U/L (39-117); Bilirubin,Total 0.8 mg/dL (0.1-1.0); Blood Urea Nitrogen 17 mg/dL (8-23); Calcium 8.2 mg/dL (8.6-10.4); Carbon Dioxide 22 mmol/L (22-30); Chloride 105 mmol/L (96-108); Globulin 4.4 gm/dL (2.2-3.7); Glomerular Filtration Rate 93; Glucose 102 mg/dL (70-105)
[2021-04-22] MEDS: PANTOPRAZOLE 40 MG TABLET PO SCH (07:53)
[2021-04-22] MEDS: LEVOTHYROXINE 25 MCG TABLET PO SCH (07:53)
[2021-04-22] MEDS: ACETAMINOPHEN 325 MG TABLET PO PRN ×2 (09:43→19:12)
[2021-04-22] MEDS: RIVAROXABAN 15 MG TABLET PO SCH ×2 (11:18→17:04)
[2021-04-22] MEDS: MULTIVIT,THER IRON,CA,FA & MIN 1 TABLET PO SCH (11:19)
[2021-04-22] MEDS: FOLIC ACID 1 MG TABLET PO SCH (11:19)
[2021-04-22] MEDS: THIAMINE 100 MG TABLET PO SCH (11:19)
[2021-04-22] MEDS: carBAMazepine 200 MG TABLET PO SCH (11:20)
[2021-04-22] MEDS: DOCUSATE SODIUM 100 MG CAPSULE PO SCH (11:21)
--- NOTE | 2021-04-22 11:54 | Internal Med Progress Note ---
SUBJECTIVE Subjective Patient information: Note initiated : 04/22/21 at 11:49 am Service Date, if different from initiated Date: [] Patient: Faahd Jimenez 75 y/o M admitted on 04/13/21 for fall. Chief Complaint: [UTI and bacteremia] Interval history: Mr. Jimenez is a 75 year old M with a history of partial complex seizures, hypothyroidism, alcohol abuse who presents the ED via EMS after being down on the floor of his workshop for 2 days. History is obtained speaking with Dr. Ramirez in the ED, reviewing records and limited history from the patient who is quite confused. Per report from his , he drinks 2 bottles of wine a day. At one point of my interview, he does tell me that he has not drank alcohol in 3 days. Apparently the patient has sleep in the back patio in the warm weather. He has been doing that this week. 2 days ago patient became weak in his arms and legs. Because of the sun and heat, he crawled into his covered workshop and lay on the concrete floor since then. Does not appear he has had much to eat or drink in that timeframe. He is quite vague on how long he had been there. His was concerned and called EMS today. Patient is unable to elaborate further on what is passed in the last 2 days. Upon arrival by EMS temperatures febrile to 102, pulse was in the 120s. He received IV fluids. His oxygen saturations were 89% in the field and he was t achypneic. Upon arrival in the ED, patient remained tachycardic at 122 blood pressure is 163/95 respiratory rate was 29. He received 2 further liters of IV fluids in the ED (3 total including EMS). Evaluation revealed white count of 11,000, thrombocytopenia at 64,000, hyponatremia 129. BUN is elevated at 46 and creatinine 2.0, with no known history of renal disease per his . Lactate is elevated 2.1. Troponin mildly abnormal at 0.04 and CPK is in the [address] scan of the head showed old chronic changes. Chest x-ray concerning for left lower lobe infiltrate. Patient is being admitted for treatment of severe sepsis associated with pneumonia. Subsequent to arriving on the floor, urine analysis returns showing significant pyuria and bacteriuria, thus the patient is being treated for sepsis from both pulmonary and urinary source. fter admission yesterday, the patient became more more confused, eventually moved to PCU status. Treated with CIWA protocol for alcohol withdrawal. This morning he is more alert and clearer. His is bedside. She explains that he had refused when she had attempted to call EMS earlier. He had been on his left side for about 2 days. She did bring him some food and fluids to drink. He apparently drinks regularly and consistently. Lima catheter placed yesterday evening for urinary retention. Labs show a white count of 11,000, unchanged. This evening at about 24 hours of incubation, 4/4 bottles of admit blood cultures are positive for gram-positive cocci in clusters. 8/3awake, conversant this morning. Is having trouble swallowing. Is having difficulty self-feeding. Speech evaluation pending. Liver enzymes elevated and about the same, and hepatocellular pattern. Troponin 0 0.08 this morning, was 0.04 at admission, no chest pain. Lima catheter remains in place, still very weak. 04/16 Patient given Ativan for elevated CIWA last night. Patient has no new complaints this morning. 04/17 Required less Ativan last night. Patient states he is feeling better today. No new complaints. Fever curve slowly improving. Mildly elevated sodium today. We will give D5 water. 04/18 Patient seems to be feeling a little bit better today. Diagnosed with subclavian vein thrombosis yesterday. Leukocytosis worsening. still having fevers although better today. 04/19 No overnight event or new complaints patient states he is feeling little bit better again. Afebrile overnight. Leukocytosis slightly improved from yesterday. Had a good bowel movement yesterday. Sodium within normal limits today. 04/20 No overnight event or new complaints. Patient on room air. Chemistry unremarkable. CBC with persistent leukocytosis. Afebrile. 04/21: fever with Tmax 38.2. WBC elevated to 15.9. Repeated blood culture no growth to date. Denies any pain or SOB. Denies any urinary symptoms. 04/22: afebrile overnight. Failed attempt of PICC line placement yesterday. Repeated blood culture no growth to date. WBC elevated at 15.5 this morning. Subjective not obtained due to clinical situations. Constitutional Vitals: Vital Signs Temp Pulse Resp BP Pulse Ox 36.7 C 98 H 18 133/76 93 04/22/21 07:56 04/22/21 07:56 04/22/21 07:56 04/22/21 07:56 04/22/21 07:56 Period Temp Pulse Resp BP Sys/Reno Pulse Ox Last 24 Hr 36.7 C-38.2 C 97-105 18-20 120-138/63-78 91-94 Intake and Output 04/21/21 04/22/21 04/22/21 21:59 05:59 13:59 Intake Total 240 400 Output Total 400 451 Balance -160 -51 Weight 99.79 kg Intake & Output: Intake & Output 04/21/21 04/22/21 04/22/21 21:59 05:59 13:59 Intake Total 240 400 Output Total 400 451 Balance -160 -51 Weight 99.79 kg Intake: Nourishment/Supplement quantity 240 (ml) Oral 400 Output: Void Amount 400 450 # of times incontinent of urine 1 Other: Meal Nourishment/Supplement Percent of Meal Consumed 100% Nourishment/Supplement name ensure Urine Appearance Clear Clear Urine Color Dark Yellow Bright Yellow Bright Yellow # Voids 1 General appearance: cooperative and no acute distress Head Head exam: Present atraumatic and normocephalic Eye Eye exam: Present EOMI and PERRL ENT ENT exam: Present mucous membranes moist, normal exam and normal external ear exam Neck Neck exam: Present normal inspection; Absent lymphadenopathy, tenderness and thyromegaly Respiratory Respiratory exam: Absent accessory muscle use, respiratory distress and wheezes Cardiovascular Cardiovascular exam: Present normal rate and rhythm; Absent JVD GI/Abdominal GI/Abdominal exam: Present normal bowel sounds and soft; Absent organomegaly and tenderness Rectal Rectal exam: Present deferred Extremities Exam Extremities exam: Present full ROM, normal capillary refill and normal inspection; Absent tenderness Neurological Exam Neurological exam: Present altered and CN II-XII intact; Absent alert, motor sensory deficit and oriented X3 Additional comments: Lethergic Psychiatric Psychiatric exam: Present normal affect and normal mood; Absent anxious and depressed Skin Skin exam: Present dry and intact OBJ DATA Labs CBC & Chem 7: 04/22/21 05:32 04/22/21 05:32 Labs: Abnormal Lab Results 04/22/21 04/22/21 04/21/21 05:32 05:32 05:55 WBC 15.5 H RBC 2.73 L Hgb 10.1 L Hct 30.9 L MCV 113.2 H MCH 37.0 H MPV 11.7 H Neut % (Auto) 85.6 H Lymph % (Auto) 7.6 L Lymph # (Auto) 1.18 L Seg Neutrophils % Lymphocytes % Absolute Neutrophils 13.26 H RBC Morphology Anisocytosis Macrocytosis ESR Glucose 112 H Calcium 8.2 L 8.1 L Total Bilirubin Direct Bilirubin GGT AST 43 H 42 H ALT 42 H Alkaline Phosphatase Lactate Dehydrogenase C-Reactive Protein Albumin 1.8 L 2.1 L Globulin 4.4 H 4.2 H Albumin/Globulin Ratio 0.4 L 0.5 L Triglycerides Procalcitonin 04/21/21 04/21/21 04/21/21 05:55 05:55 05:55 WBC 15.9 H RBC 2.87 L Hgb 10.6 L Hct 31.5 L MCV 109.8 H MCH 36.9 H MPV 11.6 H Neut % (Auto) 85.1 H Lymph % (Auto) 8.4 L Lymph # (Auto) 1.33 L Seg Neutrophils % Lymphocytes % Absolute Neutrophils 13.53 H RBC Morphology Anisocytosis Macrocytosis ESR Glucose Calcium Total Bilirubin Direct Bilirubin GGT AST ALT Alkaline Phosphatase Lactate Dehydrogenase C-Reactive Protein 5.70 H Albumin Globulin Albumin/Globulin Ratio Triglycerides Procalcitonin 0.58 H 04/20/21 04/20/21 04/20/21 05:14 05:14 05:14 WBC 15.7 H RBC 3.05 L Hgb 11.3 L Hct 33.4 L MCV 109.5 H MCH 37.0 H MPV 11.8 H Neut % (Auto) Lymph % (Auto) Lymph # (Auto) Seg Neutrophils % 86 H Lymphocytes % 9 L Absolute Neutrophils RBC Morphology Abnormal A Anisocytosis Few A Macrocytosis 1+ A ESR 115 H Glucose 113 H Calcium 8.3 L Total Bilirubin 1.1 H Direct Bilirubin 0.6 H GGT 304 H AST 48 H ALT 54 H Alkaline Phosphatase 118 H Lactate Dehydrogenase 299 H C-Reactive Protein 5.70 H Albumin 2.2 L Globulin 4.1 H Albumin/Globulin Ratio 0.5 L Triglycerides 166 H Procalcitonin 04/20/21 05:14 WBC RBC Hgb Hct MCV MCH MPV Neut % (Auto) Lymph % (Auto) Lymph # (Auto) Seg Neutrophils % Lymphocytes % Absolute Neutrophils RBC Morphology Anisocytosis Macrocytosis ESR Glucose Calcium Total Bilirubin Direct Bilirubin GGT AST ALT Alkaline Phosphatase Lactate Dehydrogenase C-Reactive Protein Albumin Globulin Albumin/Globulin Ratio Triglycerides Procalcitonin 0.76 H Meds: Medications Acetaminophen (Acetaminophen 325 Mg Tablet) 650 mg PO Q6HP PRN; Protocol PRN Reason: Per Pain Protocol/Fever > 101 Last Admin: 04/22/21 09:43 Dose: 650 mg Documented by: Albuterol/Ipratropium (Ipratropium/Albuterol 3 Ml Ampul.Neb) 3 ml NEB Q6HP PRN PRN Reason: Dyspnea Carbamazepine (Carbamazepine 200 Mg Tablet) 100 mg PO BID [facility] Last Admin: 04/22/21 11:20 Dose: 100 mg Documented by: Cefazolin Sodium (Cefazolin 1 Gm Vial) 2 gm IV Q8H [facility] Last Admin: 04/22/21 05:21 Dose: 2 gm Documented by: Clonidine HCl (Clonidine Hcl 0.1 Mg Tablet) 0.1 mg PO Q4HP PRN PRN Reason: ALC Docusate Sodium (Docusate Sodium 100 Mg Capsule) 100 mg PO BID [facility] Last Admin: 04/22/21 11:21 Dose: 100 mg Documented by: Folic Acid (Folic Acid 1 Mg Tablet) 1 mg PO DAILY [facility] Last Admin: 04/22/21 11:19 Dose: 1 mg Documented by: Heparin Sodium (Porcine) (Heparin Flush 10 Units/Ml 5 Ml Syringe) 2 ml IV Q12 [facility] Last Admin: 04/22/21 11:37 Dose: Not Given Documented by: Acetaminophen (Ofirmev) 650 mg in 65 mls @ 130 mls/hr IV Q6HP PRN; Protocol PRN Reason: PRN Fever> 100.4 Iron Carb/Multivit/Onslow/Folic Acid (Multivit,Ther Iron,Ca,Fa & Min 1 Tablet) 1 tab PO DAILY [facility] Last Admin: 04/22/21 11:19 Dose: 1 tab Documented by: Levothyroxine Sodium (Levothyroxine 25 Mcg Tablet) 25 mcg PO QAMAC [facility] Last Admin: 04/22/21 07:53 Dose: 25 mcg Documented by: Loperamide HCl (Loperamide 2 Mg Capsule) 2 mg PO PRN PRN PRN Reason: Diarrhea Melatonin (Melatonin 3 Mg Tablet) 3 mg PO QHS [facility] Last Admin: 04/21/21 20:50 Dose: 3 mg Documented by: Ondansetron HCl (Ondansetron 4 Mg Odt Tablet) 4 mg SL Q6HP PRN PRN Reason: Nausea And Vomiting Ondansetron HCl (Ondansetron 4 Mg/2 Ml Vial) 4 mg IV Q6HP PRN PRN Reason: Nausea And Vomiting Pantoprazole Sodium (Pantoprazole 40 Mg Tablet) 40 mg PO QAMAC [facility] Last Admin: 04/22/21 07:53 Dose: 40 mg Documented by: Polyethylene Glycol (Polyethylene Glycol 3350 17 Gm Packet) 17 gm PO DAILYP PRN PRN Reason: Constipation Potassium Chloride (Potassium Chloride 20 Meq Tablet) 40 meq PO UD PRN PRN Reason: Potssium is 3-3.5 Last Admin: 04/20/21 18:24 Dose: 40 meq Documented by: Rivaroxaban (Rivaroxaban 15 Mg Tablet) 15 mg PO BIDCC [facility] Stop: 05/11/21 17:29 Last Admin: 04/22/21 11:18 Dose: 15 mg Documented by: Senna (Sennosides 1 Tablet) 1 tab PO DAILYP PRN PRN Reason: constipation Last Admin: 04/20/21 13:30 Dose: 1 tab Documented by: Senna (Sennosides 1 Tablet) 2 tab PO HSP PRN PRN Reason: Constipation Sodium Chloride (0.9 % Sodium Chloride 10 Ml Syringe) 10 ml IV Q8 [facility] Last Admin: 04/22/21 05:21 Dose: 10 ml Documented by: Sodium Chloride (0.9 % Sodium Chloride 10 Ml Syringe) 10 ml IV UD PRN PRN Reason: FLUSH Sodium Chloride (0.9 % Sodium Chloride 10 Ml Syringe) 10 ml IV Q12 [facility] Last Admin: 04/21/21 20:58 Dose: 10 ml Documented by: Tamsulosin HCl (Tamsulosin 0.4 Mg Capsule) 0.4 mg PO HS [facility] Last Admin: 04/21/21 20:50 Dose: 0.4 mg Documented by: Thiamine HCl (Thiamine 100 Mg Tablet) 100 mg PO QDAY [facility] Last Admin: 04/22/21 11:19 Dose: 100 mg Documented by: A/P Assessment and plan (1) Macrocytic anemia with vitamin B12 deficiency: Status: Acute (2) MSSA bacteremia: Status: Acute Comment: Fahad is a 75-year-old alcoholic who was admitted in the hospital April 13 for severe sepsis and acute kidney injury. He had positive blood cultures for MSSA. Surveillance blood cultures negative. Echocardiogram on April 15 showed moderate left ear and moderate AI with no vegetation. His chief complaint is back pain. He is currently day 7 IV Vanco since first negative blood culture. MRSA was identified from urine culture but not blood cultures. I would consider the UTI treated after a week of Vanco. However, T-max today 100.8 with leukocytosis to 15.9. He has a history of chronic back pain. He has not noticed improvement in back pain since admission. I would recommend MRI lumbosacral spine with contrast to evaluate for epidural abscess, paraspinal muscle abscess, discitis or vertebral osteomyelitis. transition from Vanco to IV Ancef 2 g 3 times daily. (3) Acute UTI (urinary tract infection): Status: Acute Comment: MRSA identified on urine culture. DC vancomycin. Consider UTI treated. (4) Alcoholic encephalopathy: Status: Acute (5) Acute embolism and thrombosis of subclavian vein: Status: Acute Narrative A/P Narrative: Assessment and Plans: 1. UTI and Bacteremia: Urine culture: MRSA Initial blood culture: MSSA Repeaet blood culture: no growth to date Consult ID Dr. Holguin, recs. appreciated Antibiotics has been changed from Vancomycin to Ancef 2gm IV q8hr. At least 3 weeks for now. Might need longer duration of therapy depending on the findings from MRI Tylenol PRN fever cbc w/ auto diff in the morning to trend WBC 2D echocardiogram no signs of endocarditis MRI lumbosacral spine w/ w/o to evaluate for epidural abscess, paraspinal muscle abscess, discitis, or vertebral osteomyelitis. He had a splenic lesion measuring 3.1cm on CT scan April 18. This may be hemangioma or possible infection. 2. 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 Subclavian vein DVT: Xarelto 15mg PO BID X21, then 20mg PO daily 4. Macrocytic hyperchromic anemia with vitamin B12 deficiency: Thiamine Folic acid 5. Hypothyroidism: Continue thyroid replacement therapy 6. Partial complex seizure: Continue carbamazepine GI ppx: oral PPI DVT ppx: Xarelto Code status: Full Prognosis: guarded Disposition: inpatient med surg Time Spent With Patient Time: Total time spent is greater than 50% in coordination of care (as documented) at patient's floor/unit and/or counseling patient: Total time spent with greater than 50% in coordination of care (as documented) at patient's floor/unit and/or counseling patient:: 25 - 35 minutes QUALITY VTE Deep Vein Thrombosis/Pulmonary Embolism Present on Admission: No
[2021-04-22] MEDS ORDERED: GADOBENATE DIMEGLUMINE 20 ML/VIAL IV ONE (14:00)
--- NOTE | 2021-04-22 16:01 | Magnetic Resonance Report ---
INDICATION: look for spinal abscess as source of infection TECHNIQUE: Sagittal and axial images of the lumbar spine. Scans performed before and after intravenous injection of 20 mL MultiHance COMPARISON: Previous chest, abdomen, pelvis CT scan dated 04/18/2021 FINDINGS: Poor quality examination due to extensive patient motion. There is irregular epidural enhancement in the caudal aspects of the lumbar spine. This extends from mid L4 through the sacral canal. This is heterogeneous with areas of nonenhancing decreased signal. Although this examination is markedly suboptimal this appearance is consistent with a distal lumbar and sacral epidural abscess. The thecal sac is effaced at the L5 level. There is no intradiscal enhancement. No evidence for discitis. There is enhancement within the L4 and L5 vertebral bodies. This is nonspecific but osteomyelitis is possible. There is mild paraspinal enhancement. There is mild congenital spinal canal stenosis at L2-3 and L3-4. There is abnormal signal intensity within the vertebral bodies of the lumbar spine and sacrum. There is decreased signal intensity on both T1 and T2-weighted sequences. This suggests hypercellular marrow. Conus medullaris is normal. Cauda equina appears normal to the L4-5 level. It is not well evaluated caudal to this due to effacement of the thecal sac. IMPRESSION: 1. Poor quality examination due to extensive patient motion 2. Abnormal epidural enhancement extending from L4-5 to the sacral spinal canal. Appearance is consistent with epidural abscess. 3. L4 and L5 vertebral body enhancement and mild paraspinal soft tissue enhancement. Osteomyelitis is possible. 4. No enhancing discs. No evidence for disc infection 5. Mild congenital spinal canal stenosis at L2-3 and L3-4 Interpreted and Authenticated by: Andres Harrington 04/22/21
[2021-04-22] MEDS ORDERED: NAFCILLIN 2 GM in 0.9 % SODIUM CHLORIDE 50 ML IV SCH (17:00)
--- NOTE | 2021-04-22 18:55 | Discharge Summary ---
Discharge Provider Provider Patient information: Note initiated : 04/22/21 at 6:50 pm Service Date, if different from initiated Date: [] Patient: Fahad Jimenez 75 y/o M admitted on 04/13/21 for fall. Chief Complaint: [bacteremia, UTI, epidural abscess] Date of admission: 04/13/21 21:11 Discharge date: 04/22/21 Primary care physician: Harshad Kulkarni Consults: 04/13/21 Consult to Physician [CONS] Stat Comment: Consulting Provider: Jessica Leon Reason For Exam: Physician to Consult 04/21/21 16:41 Consult to Physician [CONS] Routine Comment: Consulting Provider: Aubrey Holguin Reason For Exam: Physician to Consult Discharge Meds Discharge Medications Home Medications carbamazepine [Tegretol] 200 mg PO DAILY 04/13/21 [History Confirmed 04/13/21 Last Taken Unknown] levothyroxine 25 mcg PO DAILY 04/13/21 [History Confirmed 04/13/21 Last Taken Unknown] COURSE Hospital Course Hospital course: Patient was initially admitted on 04/13/2021 for altered mental status and was subsequently found to be septic with multiple source of infections including bacteremia and urinary tract infections with blood culture and urine culture growing MSSA and MRSA, respectively. 2D echocardiogram were performed and no endocardial vegetations were seen. Patient was started on broad-spectrum IV antibiotic therapy which were subsequently being narrowed down to only vancomycin given the staff aureus infections. Patient though continue to spike fever and have leukocytosis so investigations for another source of hidden infection was performed. Repeated blood culture has been no ground today. MRI of the lumbosacral spine with and without contrast were performed and it shows L4-L5 epidural abscess as well as questionable L4-L5 vertebral body osteomyelitis. Given the fact that there is no interventional radiologist or neurosurgeons available in our facility, the patient pellety of transferring the patient to another facility with dose specialist available were entertained. Patient's was finally being accepted by Dr. Trevon medina hospitalist from [facility] Discharge diagnosis: epidural abscess, osteomyelitis, bacteremia, and UTI Time Spent with Patient Time attestation: Total time spent providing and/or coordinating discharge services: Patient was initially admitted on 04/13/2021 for altered mental status and was subsequently found to be septic with multiple source of infections including bacteremia and urinary tract infections with blood culture and urine culture growing MSSA and MRSA, respectively. 2D echocardiogram were performed and no endocardial vegetations were seen. Patient was started on broad-spectrum IV antibiotic therapy which were subsequently being narrowed down to only vancomycin given the staff aureus infections. Patient though continue to spike fever and have leukocytosis so investigations for another source of hidden infection was performed. Repeated blood culture has been no ground today. MRI of the lumbosacral spine with and without contrast were performed and it shows L4-L5 epidural abscess as well as questionable L4-L5 vertebral body osteomyelitis. Given the fact that there is no interventional radiologist or neurosurgeons available in our facility, the patient pellety of transferring the patient to another facility with dose specialist available were entertained. Patient's was finally being accepted by Dr. Trevon [facility] hospitalist from [facility]. Of note, patient was also found to have a DVT in subclavian vein and he was subsequently being treated with Lovenox which were converted to Xarelto on April 20. EXAM Constitutional Vitals: Temp Pulse Resp BP Pulse Ox 36.8 C 106 H 18 140/73 93 04/22/21 16:00 04/22/21 16:00 04/22/21 16:00 04/22/21 16:00 04/22/21 16:00 General appearance: cooperative and no acute distress Head Head exam: Present atraumatic and normocephalic Eye Eye exam: Present EOMI and PERRL ENT ENT exam: Present mucous membranes moist, normal exam and normal external ear exam Neck Neck exam: Present normal inspection; Absent lymphadenopathy, tenderness and thyromegaly Respiratory Respiratory exam: Absent accessory muscle use, respiratory distress and wheezes Cardiovascular Cardiovascular exam: Present normal rate and rhythm; Absent JVD GI/Abdominal GI/Abdominal exam: Present normal bowel sounds and soft; Absent organomegaly and tenderness Rectal Rectal exam: Present deferred Extremities Exam Extremities exam: Present full ROM, normal capillary refill and normal inspection; Absent tenderness Neurological Exam Neurological exam: Present alert and CN II-XII intact; Absent motor sensory deficit and oriented X3 Additional comments: oriented times [address] only Psychiatric Psychiatric exam: Present normal affect and normal mood; Absent anxious and depressed Skin Skin exam: Present dry and intact Discharge Data Data Completed and Pending Labs on day of discharge: Labs from last 24 hours 04/22/21 04/22/21 04/20/21 05:32 05:32 05:14 WBC 15.5 H RBC 2.73 L Hgb 10.1 L Hct 30.9 L MCV 113.2 H MCH 37.0 H MCHC 32.7 RDW 13.6 Plt Count 228 MPV 11.7 H Neut % (Auto) 85.6 H Lymph % (Auto) 7.6 L Johnson % (Auto) 5.5 Eos % (Auto) 0.8 Baso % (Auto) 0.5 Lymph # (Auto) 1.18 L Johnson # (Auto) 0.85 Eos # (Auto) 0.12 Baso # (Auto) 0.08 Absolute Neutrophils 13.26 H Smear Path Review See comment Sodium 139 Potassium 3.5 Chloride 105 Carbon Dioxide 22 Anion Gap 12.0 BUN 17 Creatinine 0.7 GFR Calculation 93 Glucose 102 Calcium 8.2 L Total Bilirubin 0.8 AST 43 H ALT 35 Alkaline Phosphatase 104 Total Protein 6.2 Albumin 1.8 L Globulin 4.4 H Albumin/Globulin Ratio 0.4 L Discharge Plan Patient/Caregiver Discharge Instructions Activity: as per physical therapy Diet: Regular Diet Prescriptions: Continued levothyroxine 25 mcg tablet 25 mcg PO DAILY RF: 0 carbamazepine [Tegretol] 200 mg tablet 200 mg PO DAILY RF: 0 Follow Up Plan Follow up with: Nilay Ward MD [Physician] - (Follow up in [facility] 7-10 days after discharge) Scot Will [Physician] - Patient Disposition: Xfer Other Prognosis: Serious Rehab Potential: Fair I certify that the patient requires SNF services: Yes Overall status at discharge: patient is not back to baseline Discharge Orders: Discharge Order (Routine); Ordered 04/22/21 Ordered By: Cameron QUINTANILLA VTE Deep Vein Thrombosis/Pulmonary Embolism Present on Admission: No
== END 2021-04-22 20:02 | disposition other institution (70) | DRG 871 ==
LOC: ED 18:21 → MEDSUR 21:11 → ICU 22:20 → MEDSUR 04-18 14:37
PROVIDERS: ADMIT Internal Medicine; ATTEND Internal Medicine